=== PATIENT | female | born 1980 | race Caucasian/White ===

== ENCOUNTER 2017-10-23 12:45 | Emergency (ER) | payer MEDICAID ==
[~2017-10-23] VITALS: Ht 5367.7 cm; Wt 114.9 kg
[~2017-10-23 12:45] MED LIST: CARB100T7 PO; CYCL-1 PO; DIPH25CA83 PO; ESTR0.5T; GABA300C PO; HYDR-565 PO; LAMO100T2 PO; LORA1TAB PO; METO-292 PO; OMEP40CA37 PO; PENT100C8 PO; PROC5TAB56 PO; SUCR1TAB34 PO; SUMA25TA35 PO; TRAZ-91 PO; VITA1CAP62 PO
[2017-10-23 14:05] LABS: HEMATOCRIT 41.4 % (35.0-45.0); HEMOGLOBIN 14.6 g/dl (12.0-16.0); MEAN CORPUSCULAR HEMOGLOBIN 33.5 PG (27.0-31.0); MEAN CORPUSCULAR HGB CONC 35.2 % (33.0-36.5); PLATELET COUNT 253 X10'3 (140-440); RED BLOOD COUNT 4.36 X10'6 (4.20-5.60); RED CELL DISTRIBUTION WIDTH 12.5 % (11.5-14.5); WHITE BLOOD COUNT 10.7 X10'3 (4.5-11.0)
[2017-10-23 14:06] LABS: BASOPHILS % (AUTO) 0.4 % (0-1); EOSINOPHILS # (AUTO) 0.3 X10'3 (0-0.9); EOSINOPHILS % (AUTO) 2.7 % (0-6); LYMPHOCYTES # (AUTO) 2.7 X10'3 (1.1-4.8); LYMPHOCYTES % (AUTO) 24.7 % (21-51); MEAN PLATELET VOLUME 6.9 FL (7.4-10.4); MONOCYTES # (AUTO) 0.5 X10'3 (0-0.9); MONOCYTES % (AUTO) 4.9 % (2-12); NEUTROPHILS # (AUTO) 7.2 X10'3 (1.8-7.7); NEUTROPHILS % (AUTO) 67.3 % (42-75)
[2017-10-23 14:13] LABS: URINE HCG NEGATIVE (NEG)
[2017-10-23] MEDS ORDERED: CHOL100046 PO (14:20)
[2017-10-23] MEDS ORDERED: EST1T PO (14:20)
[2017-10-23] MEDS ORDERED: BREX1TAB PO (14:20)
[2017-10-23 14:21] LABS: ALANINE AMINOTRANSFERASE 21 U/L (12-78); ALBUMIN 2.9 G/DL (3.4-5.0); ALBUMIN/GLOBULIN RATIO 0.6 (1.1-1.5); ALKALINE PHOSPHATASE 128 IU/L (46-116); ANION GAP 10 (8-16); ASPARTATE AMINO TRANSFERASE 13 U/L (10-37); BILIRUBIN,TOTAL 0.2 MG/DL (0.1-1.0); BLOOD UREA NITROGEN 12 MG/DL (7-18); BUN/CREATININE RATIO 16.4 (6.6-38.0); CALCIUM 8.7 MG/DL (8.5-10.1); CHLORIDE 106 MMOL/L (99-107); CREATININE 0.73 MG/DL (0.40-0.90); ETHANOL < 0.010 GM/DL (0.0-0.010); GLUCOSE 98 MG/DL (70-104); POTASSIUM 4.1 MMOL/L (3.5-5.1); SODIUM 142 MMOL/L (135-145); TOTAL PROTEIN 7.4 G/DL (6.4-8.2); eGFR 90 ML/MIN
[2017-10-23 14:26] LABS: URINE AMPHETAMINE SCREEN NEGATIVE (Neg); URINE BARBITUATE SCREEN NEGATIVE (Neg); URINE BENZODIAZEPINES SCREEN NEGATIVE (Neg); URINE CANNABINOID SCREEN NEGATIVE (Neg); URINE COCAINE SCREEN NEGATIVE (Neg); URINE METHADONE SCREEN NEGATIVE (Neg); URINE OPIATE SCREEN POSITIVE (Neg); URINE PHENCYCLIDINE SCREEN NEGATIVE (Neg)
[2017-10-23] MEDS: HYDROcodone/acetaminophen 10/325mg tab PO SCH ×2 (14:48→21:11)
[2017-10-23] MEDS: LORazepam 1 MG tablet PO SCH ×2 (14:48→21:10)
[2017-10-23] MEDS ORDERED: metoclopramide 10mg tablet PO PRN (15:00)
[2017-10-23] MEDS ORDERED: LORazepam 1 MG tablet PO PRN (15:00)
[2017-10-23] MEDS ORDERED: cyclobenzaprine 10mg tablet PO PRN (15:00)
[2017-10-23] MEDS ORDERED: metoclopramide 10mg tablet PO ONE (16:00)
[2017-10-23] MEDS ORDERED: nicotine 14mg patch - 24hr TD ONE (16:20)
[2017-10-23] MEDS ORDERED: pentosan 100mg capsule PO SCH (21:00)
[2017-10-23] MEDS: carBAMazepine 100mg chewable tablet PO SCH (21:06)
[2017-10-23] MEDS: traZODone 50mg tablet PO SCH (21:09)
[2017-10-23] MEDS: lamoTRIgine 100mg tablet PO SCH (21:10)
[2017-10-24] MEDS ORDERED: estradiol 1mg tablet PO SCH (08:00)
[2017-10-24] MEDS: ELMIRON 100 MG PO SCH ×3 (08:00→20:56)
[2017-10-24] MEDS ORDERED: pantoprazole 40mg Tablet.DR PO SCH (08:00)
[2017-10-24] MEDS ORDERED: vitamin D (cholecalciferol) 1,000 unit tablet PO SCH (08:00)
[2017-10-24] MEDS ORDERED: nicotine 14mg patch - 24hr TD ONE (08:00)
[2017-10-24] MEDS ORDERED: nicotine 21mg patch - 24 hr TD ONE (08:00)
[2017-10-24] MEDS: HYDROcodone/acetaminophen 10/325mg tab PO SCH ×3 (08:20→20:52)
[2017-10-24] MEDS: LORazepam 1 MG tablet PO SCH ×3 (08:21→20:51)
[2017-10-24] MEDS: carBAMazepine 100mg chewable tablet PO SCH ×2 (08:34→20:51)
[2017-10-24 13:27] LABS: CLARITY,URINE Cloudy (Clear); COLOR,URINE Yellow (Yellow); GLUCOSE, URINE Negative (Neg); KETONES,URINE Negative (Neg); LEUKOCYTE ESTERASE ,URINE Negative (Neg); NITRITES, URINE Negative (Neg); OCCULT BLOOD,URINE Negative (Neg); PH,URINE 5.5 (4.8-8.0); PROTEIN,URINE Negative (Neg); UROBILINOGEN,URINE 0.2 E.U/dL (0.2-1.0)
[2017-10-24 13:28] LABS: UA COLLECTION TYPE CLN CATCH MIDSTREAM
[2017-10-24 13:34] LABS: BACTERIA,URINE 3+ /HPF (Neg); CAL OXALATE CRYSTALS 2+ /HPF (NEGATIVE); MUCUS STRANDS FEW /LPF (Neg); RBC,URINE NONE SEEN /HPF (0-2); SQUAMOUS EPITHELIAL CELL,UR MODERATE /LPF (FEW); WBC,URINE 0-4 /HPF (0-4)
[2017-10-24] MEDS: traZODone 50mg tablet PO SCH (20:52)
[2017-10-24] MEDS: lamoTRIgine 100mg tablet PO SCH (20:55)
[2017-10-24 21:36] VITALS: BP 145/97
== END 2017-10-24 21:39 ==
LOC: ER 12:46
DX: R45.851 Suicidal ideations (principal); K21.9 Gastro-esophageal reflux disease without esophagitis; G89.29 Other chronic pain; F41.9 Anxiety disorder, unspecified; F31.9 Bipolar disorder, unspecified; E78.00 Pure hypercholesterolemia, unspecified; Z90.49 Acquired absence of other specified parts of digestive tract; Z90.710 Acquired absence of both cervix and uterus; Z88.5 Allergy status to narcotic agent
CPT/HCPCS: 36415; 80053; 80305; 80320; 81001; 81025; 85025; 99285; J7030; J8597

== ENCOUNTER 2017-11-22 16:19 | Emergency (ER) | payer MEDICAID ==
[~2017-11-22] VITALS: Ht 162.6 cm; Wt 113.6 kg
[~2017-11-22 16:19] MED LIST changes: +BREX1TAB PO; +CHOL100046 PO; -DIPH25CA83 PO; +EST1T PO; -ESTR0.5T; -PROC5TAB56 PO; -SUCR1TAB34 PO; -SUMA25TA35 PO; -VITA1CAP62 PO
[2017-11-22] MEDS ORDERED: ipratropium/albuterol 3ml nebule NEB ONE (17:50)
[2017-11-22] MEDS ORDERED: dexamethasone 4mg tablet PO ONE (17:50)
[2017-11-22] MEDS ORDERED: DOXY100C43 PO (17:53)
[2017-11-22] MEDS ORDERED: ALBU8HFA PO (17:53)
[2017-11-22] MEDS ORDERED: PRED5TAB PO (17:53)
[2017-11-22 18:34] VITALS: BP 139/99
== END 2017-11-22 18:36 | disposition home or self-care (01) ==
LOC: ER 16:20
DX: K21.9 Gastro-esophageal reflux disease without esophagitis (principal); J20.9 Acute bronchitis, unspecified; J06.9 Acute upper respiratory infection, unspecified; F17.200 Nicotine dependence, unspecified, uncomplicated; G89.29 Other chronic pain; F41.9 Anxiety disorder, unspecified; F32.9 Major depressive disorder, single episode, unspecified; E78.00 Pure hypercholesterolemia, unspecified; Z87.442 Personal history of urinary calculi; Z90.710 Acquired absence of both cervix and uterus; Z90.49 Acquired absence of other specified parts of digestive tract; Z88.5 Allergy status to narcotic agent
CPT/HCPCS: 87070; 94640; 94760; 99284; J8540

== ENCOUNTER 2017-11-24 13:34 | Emergency (ER) | payer MEDICAID ==
[~2017-11-24] VITALS: Ht 162.6 cm; Wt 117.7 kg
[~2017-11-24 13:34] MED LIST changes: +ALBU8HFA PO; +DOXY100C43 PO; +PRED5TAB PO
[2017-11-24] MEDS ORDERED: AZIT250T PO (15:18)
[2017-11-24] MEDS ORDERED: BENZ-16 PO (15:18)
[2017-11-24 15:26] VITALS: BP 134/86
== END 2017-11-24 15:28 | disposition home or self-care (01) ==
LOC: ER 13:35
DX: J20.9 Acute bronchitis, unspecified (principal); G43.909 Migraine, unspecified, not intractable, without status migrainosus; E78.00 Pure hypercholesterolemia, unspecified; G89.29 Other chronic pain; K21.9 Gastro-esophageal reflux disease without esophagitis; F17.200 Nicotine dependence, unspecified, uncomplicated; Z87.442 Personal history of urinary calculi; Z90.49 Acquired absence of other specified parts of digestive tract; Z90.710 Acquired absence of both cervix and uterus; Z88.5 Allergy status to narcotic agent; Z88.8 Allergy status to other drugs, medicaments and biological substances; Z79.899 Other long term (current) drug therapy
CPT/HCPCS: 99283; J7030

== ENCOUNTER 2017-12-06 15:58 | Emergency (ER) | payer MEDICAID ==
[~2017-12-06] VITALS: Ht 162.6 cm; Wt 103.6 kg
[~2017-12-06 15:58] MED LIST changes: +AZIT250T PO; +BENZ-16 PO; -DOXY100C43 PO
[2017-12-06] MEDS ORDERED: ketorolac trometh inj. 60 MG/2 ML VIAL IM ONE (16:20)
[2017-12-06 16:38] LABS: CLARITY,URINE CLEAR (Clear); COLOR,URINE YELLOW (Yellow); GLUCOSE, URINE NEGATIVE (Neg); KETONES,URINE NEGATIVE (Neg); LEUKOCYTE ESTERASE ,URINE NEGATIVE (Neg); NITRITES, URINE NEGATIVE (Neg); OCCULT BLOOD,URINE NEGATIVE (Neg); PROTEIN,URINE NEGATIVE (Neg)
[2017-12-06 16:39] LABS: UA COLLECTION TYPE CLN CATCH MIDSTREAM
[2017-12-06] MEDS ORDERED: HYDROcodone/acetaminophen 10/325mg tab PO ONE (17:15)
[2017-12-06 17:41] LABS: BASOPHILS # (AUTO) 0.1 X10'3 (0-0.2); BASOPHILS % (AUTO) 0.5 % (0-1); EOSINOPHILS # (AUTO) 0.4 X10'3 (0-0.9); EOSINOPHILS % (AUTO) 2.7 % (0-6); HEMATOCRIT 40.7 % (35.0-45.0); HEMOGLOBIN 14.5 g/dl (12.0-16.0); LYMPHOCYTES % (AUTO) 21.5 % (21-51); MEAN CORPUSCULAR HEMOGLOBIN 33.3 PG (27.0-31.0); MEAN CORPUSCULAR HGB CONC 35.6 % (33.0-36.5); MEAN CORPUSCULAR VOLUME 93.7 FL (78-98); MEAN PLATELET VOLUME 6.8 FL (7.4-10.4); MONOCYTES # (AUTO) 0.5 X10'3 (0-0.9); MONOCYTES % (AUTO) 3.5 % (2-12); NEUTROPHILS # (AUTO) 10.1 X10'3 (1.8-7.7); NEUTROPHILS % (AUTO) 71.8 % (42-75); PLATELET COUNT 284 X10'3 (140-440); RED BLOOD COUNT 4.35 X10'6 (4.20-5.60); RED CELL DISTRIBUTION WIDTH 12.9 % (11.5-14.5); WHITE BLOOD COUNT 14.1 X10'3 (4.5-11.0)
[2017-12-06 17:57] LABS: ALANINE AMINOTRANSFERASE 24 U/L (12-78); ALBUMIN 3.1 G/DL (3.4-5.0); ALBUMIN/GLOBULIN RATIO 0.7 (1.1-1.5); ALKALINE PHOSPHATASE 103 IU/L (46-116); ANION GAP 9 (8-16); ASPARTATE AMINO TRANSFERASE 15 U/L (10-37); BILIRUBIN,TOTAL 0.3 MG/DL (0.1-1.0); BLOOD UREA NITROGEN 14 MG/DL (7-18); BUN/CREATININE RATIO 19.4 (6.6-38.0); CHLORIDE 107 MMOL/L (99-107); CREATININE 0.72 MG/DL (0.40-0.90); GLUCOSE 115 MG/DL (70-104); POTASSIUM 4.2 MMOL/L (3.5-5.1); SODIUM 142 MMOL/L (135-145); TOTAL CARBON DIOXIDE 26.4 MMOL/L (24-32); TOTAL PROTEIN 7.4 G/DL (6.4-8.2); eGFR > 90 ML/MIN
[2017-12-06 18:03] VITALS: BP 132/82
[2017-12-06] MEDS ORDERED: LIDOcaine 5% patch TP ONE (18:10)
== END 2017-12-06 18:26 | disposition home or self-care (01) ==
LOC: ER 15:58
DX: R10.31 Right lower quadrant pain (principal); R30.0 Dysuria; R11.0 Nausea; E78.00 Pure hypercholesterolemia, unspecified; K21.9 Gastro-esophageal reflux disease without esophagitis; G89.29 Other chronic pain; G43.909 Migraine, unspecified, not intractable, without status migrainosus; Z87.442 Personal history of urinary calculi; Z90.49 Acquired absence of other specified parts of digestive tract; Z90.710 Acquired absence of both cervix and uterus; Z98.890 Other specified postprocedural states; Z88.8 Allergy status to other drugs, medicaments and biological substances; Z79.899 Other long term (current) drug therapy
CPT/HCPCS: 36415; 80053; 81003; 85025; 96372; 99284; J1885

== ENCOUNTER 2018-02-14 16:05 | Emergency (ER) | payer MEDICAID ==
[~2018-02-14] VITALS: Ht 162.6 cm; Wt 123.0 kg
[~2018-02-14 16:05] MED LIST changes: -ALBU8HFA PO; +SUMA100T PO
[2018-02-14] MEDS ORDERED: aspirin 81mg tab.chew PO ONE (17:00)
[2018-02-14] MEDS ORDERED: acetaminophen 325mg tablet PO ONE (17:40)
[2018-02-14 18:03] VITALS: BP 138/89
== END 2018-02-14 18:06 | disposition home or self-care (01) ==
LOC: ER 16:06
DX: R07.89 Other chest pain (principal); M79.602 Pain in left arm; R00.2 Palpitations; G43.909 Migraine, unspecified, not intractable, without status migrainosus; E78.00 Pure hypercholesterolemia, unspecified; K59.00 Constipation, unspecified; K57.92 Diverticulitis of intestine, part unspecified, without perforation or abscess without bleeding; K21.9 Gastro-esophageal reflux disease without esophagitis; G89.29 Other chronic pain; Z87.442 Personal history of urinary calculi; Z90.49 Acquired absence of other specified parts of digestive tract; Z90.710 Acquired absence of both cervix and uterus; Z98.51 Tubal ligation status; Z98.890 Other specified postprocedural states; Z88.8 Allergy status to other drugs, medicaments and biological substances; Z79.2 Long term (current) use of antibiotics; Z79.899 Other long term (current) drug therapy
CPT/HCPCS: 36415; 84484; 93005; 99285

== ENCOUNTER 2018-04-25 18:02 | Emergency (ER) | payer MEDICAID ==
[~2018-04-25] VITALS: Ht 162.6 cm; Wt 129.6 kg
[~2018-04-25 18:02] MED LIST changes: -SUMA100T PO; +SUMA50TA PO
[2018-04-25] MEDS ORDERED: ketorolac trometh inj. 60 MG/2 ML VIAL IM ONE (18:25)
[2018-04-25] MEDS ORDERED: proCHLORperazine 10mg tablet PO ONE (18:25)
[2018-04-25] MEDS ORDERED: diphenhydrAMINE 25mg capsule PO ONE (18:25)
[2018-04-25 18:52] LABS: CLARITY,URINE SLIGHTLY CLOUDY (Clear); COLOR,URINE YELLOW (Yellow); GLUCOSE, URINE NEGATIVE (Neg); KETONES,URINE NEGATIVE (Neg); LEUKOCYTE ESTERASE ,URINE NEGATIVE (Neg); NITRITES, URINE NEGATIVE (Neg); OCCULT BLOOD,URINE TRACE-LYSED (Neg); PROTEIN,URINE NEGATIVE (Neg); UROBILINOGEN,URINE 0.2 E.U/dL (0.2-1.0)
[2018-04-25 18:54] LABS: UA COLLECTION TYPE CLN CATCH MIDSTREAM
[2018-04-25 18:57] LABS: BASOPHILS # (AUTO) 0.1 X10'3 (0-0.2); BASOPHILS % (AUTO) 0.5 % (0-1); EOSINOPHILS # (AUTO) 0.3 X10'3 (0-0.9); EOSINOPHILS % (AUTO) 2.2 % (0-6); HEMATOCRIT 39.6 % (35.0-45.0); HEMOGLOBIN 13.8 g/dl (12.0-16.0); LYMPHOCYTES # (AUTO) 3.6 X10'3 (1.1-4.8); LYMPHOCYTES % (AUTO) 27.3 % (21-51); MEAN CORPUSCULAR HEMOGLOBIN 31.3 PG (27.0-31.0); MEAN CORPUSCULAR HGB CONC 34.8 % (33.0-36.5); MEAN CORPUSCULAR VOLUME 90.1 FL (78-98); MEAN PLATELET VOLUME 6.9 FL (7.4-10.4); MONOCYTES # (AUTO) 0.5 X10'3 (0-0.9); MONOCYTES % (AUTO) 3.8 % (2-12); NEUTROPHILS # (AUTO) 8.7 X10'3 (1.8-7.7); NEUTROPHILS % (AUTO) 66.2 % (42-75); PLATELET COUNT 291 X10'3 (140-440); RED CELL DISTRIBUTION WIDTH 14.1 % (11.5-14.5); WHITE BLOOD COUNT 13.2 X10'3 (4.5-11.0)
[2018-04-25 19:01] LABS: BACTERIA,URINE 3+ /HPF (Neg); MUCUS STRANDS MODERATE /LPF (Neg); SQUAMOUS EPITHELIAL CELL,UR MANY /LPF (FEW); WBC,URINE 0-4 /HPF (0-4)
[2018-04-25 19:03] LABS: URINE AMPHETAMINE SCREEN NEGATIVE (Neg); URINE BARBITUATE SCREEN NEGATIVE (Neg); URINE BENZODIAZEPINES SCREEN NEGATIVE (Neg); URINE CANNABINOID SCREEN NEGATIVE (Neg); URINE COCAINE SCREEN NEGATIVE (Neg); URINE METHADONE SCREEN NEGATIVE (Neg); URINE OPIATE SCREEN POSITIVE (Neg); URINE PHENCYCLIDINE SCREEN NEGATIVE (Neg)
[2018-04-25 19:11] LABS: URINE HCG NEGATIVE (NEG)
[2018-04-25 19:12] LABS: ALANINE AMINOTRANSFERASE 22 U/L (12-78); ALBUMIN 3.1 G/DL (3.4-5.0); ALBUMIN/GLOBULIN RATIO 0.8 (1.1-1.5); ALKALINE PHOSPHATASE 106 IU/L (46-116); ANION GAP 10 (8-16); ASPARTATE AMINO TRANSFERASE 18 U/L (10-37); BILIRUBIN,TOTAL 0.2 MG/DL (0.1-1.0); BLOOD UREA NITROGEN 14 MG/DL (7-18); BUN/CREATININE RATIO 16.1 (6.6-38.0); CALCIUM 8.6 MG/DL (8.5-10.1); CHLORIDE 104 MMOL/L (99-107); CREATININE 0.87 MG/DL (0.40-0.90); GLUCOSE 131 MG/DL (70-104); POTASSIUM 3.8 MMOL/L (3.5-5.1); SODIUM 139 MMOL/L (135-145); TOTAL CARBON DIOXIDE 25.4 MMOL/L (24-32); TOTAL PROTEIN 7.1 G/DL (6.4-8.2); eGFR 73 ML/MIN
[2018-04-25 19:21] LABS: ETHANOL < 0.010 GM/DL (0.0-0.010)
[2018-04-25 19:24] LABS: ACETAMINOPHEN < 2.0 UG/ML (10-30)
[2018-04-25] MEDS ORDERED: LORA10TA61 PO (19:43)
[2018-04-25] MEDS ORDERED: OMEP40CA37 PO (19:43)
[2018-04-25] MEDS ORDERED: SUMA100T PO (19:43)
[2018-04-25] MEDS ORDERED: LAMO200T2 PO (19:43)
[2018-04-25] MEDS ORDERED: ASEN5TAB SL (19:43)
[2018-04-25] MEDS ORDERED: ASPI81TA46 PO (19:43)
[2018-04-25] MEDS ORDERED: ONDA8TAB9 PO (19:43)
[2018-04-25] MEDS ORDERED: CHOL5000 PO (19:43)
[2018-04-25] MEDS ORDERED: PENT100C9 PO (19:43)
[2018-04-25] MEDS ORDERED: CYCL-1 PO (19:43)
[2018-04-25] MEDS ORDERED: METO-292 PO (19:43)
[2018-04-25] MEDS ORDERED: CHOL200013 PO (20:15)
[2018-04-25] MEDS ORDERED: ondansetron/PF 4mg/2ml inj IM ONE (20:40)
[2018-04-25] MEDS ORDERED: SUMAtriptan 25 MG tablet PO PRN (21:35)
[2018-04-25] MEDS ORDERED: LORazepam 1 MG tablet PO PRN (21:35)
[2018-04-25] MEDS ORDERED: HYDROcodone/acetaminophen 10/325mg tab PO PRN (21:35)
[2018-04-25] MEDS ORDERED: cyclobenzaprine 10mg tablet PO PRN (21:35)
[2018-04-25] MEDS ORDERED: ondansetron 4mg rapidly disintigrating tab PO PRN (21:35)
[2018-04-25] MEDS ORDERED: nicotine prolacrilex 4mg gum BC PRN (21:40)
[2018-04-25] MEDS ORDERED: LORazepam 1 MG tablet PO ONE (23:25)
[2018-04-26] MEDS ORDERED: traZODone 50mg tablet PO ONE (00:20)
[2018-04-26] MEDS: metoclopramide 10mg tablet PO SCH ×2 (00:40→08:04)
[2018-04-26] MEDS ORDERED: ASENAPINE MALEATE 5 MG SL SCH (08:00)
[2018-04-26] MEDS ORDERED: gabapentin 300mg capsule PO SCH (08:00)
[2018-04-26] MEDS ORDERED: pentosan 100mg capsule PO SCH ×2 (08:00)
[2018-04-26] MEDS ORDERED: aspirin 81mg tablet.DR PO SCH (08:00)
[2018-04-26] MEDS ORDERED: pantoprazole 40mg Tablet.DR PO SCH (08:00)
[2018-04-26] MEDS ORDERED: loratadine 10mg tablet PO SCH (08:00)
[2018-04-26] MEDS ORDERED: estradiol 1mg tablet PO SCH (08:00)
[2018-04-26 09:18] VITALS: BP 141/90
[2018-04-26] MEDS ORDERED: traZODone 50mg tablet PO SCH ×4 (20:00→21:00)
[2018-04-26] MEDS ORDERED: lamoTRIgine 100mg tablet PO SCH (21:00)
== END 2018-04-26 09:10 ==
LOC: ER 18:02
DX: F31.9 Bipolar disorder, unspecified (principal); F41.9 Anxiety disorder, unspecified; R45.851 Suicidal ideations; G43.909 Migraine, unspecified, not intractable, without status migrainosus; E78.00 Pure hypercholesterolemia, unspecified; I10 Essential (primary) hypertension; K21.9 Gastro-esophageal reflux disease without esophagitis; G89.29 Other chronic pain; Z90.49 Acquired absence of other specified parts of digestive tract; Z90.710 Acquired absence of both cervix and uterus; Z98.890 Other specified postprocedural states; Z87.442 Personal history of urinary calculi; Z88.8 Allergy status to other drugs, medicaments and biological substances; Z88.5 Allergy status to narcotic agent; Z79.899 Other long term (current) drug therapy
CPT/HCPCS: 36415; 80053; 80305; 80320; 80329; 81001; 81025; 84443; 85025; 96372; 99285; J1885; J8597; Q0163; Q0164

== ENCOUNTER 2018-06-17 14:32 | Emergency (ER) | payer MEDICAID ==
[~2018-06-17] VITALS: Ht 162.6 cm; Wt 128.2 kg
[~2018-06-17 14:32] MED LIST changes: +ASEN5TAB SL; +ASPI81TA46 PO; -AZIT250T PO; -BENZ-16 PO; -BREX1TAB PO; -CARB100T7 PO; -CHOL100046 PO; +CHOL200013 PO; +HYDR-4353 PO; -HYDR-565 PO; -LAMO100T2 PO; +LAMO200T2 PO; +LORA10TA61 PO; +ONDA8TAB9 PO; -PRED5TAB PO; +SUMA100T PO; -SUMA50TA PO
[2018-06-17] MEDS ORDERED: diphenhydrAMINE 50 mg/ml inj IV ONE (16:00)
[2018-06-17] MEDS ORDERED: metoclopramide 5 mg/ml inj IV ONE (16:00)
[2018-06-17] MEDS ORDERED: normal saline 1000ML IV soln IVB ONE (16:00)
[2018-06-17] MEDS ORDERED: ketorolac trometh. 30mg/ml inj. IV ONE (16:00)
[2018-06-17] MEDS ORDERED: SUMAtriptan succ. 6 MG/0.5ml vial SQ ONE (17:50)
[2018-06-17 18:12] VITALS: BP 166/94
[2018-06-20] MEDS ORDERED: FLO0.4C PO (19:50)
== END 2018-06-17 18:13 | disposition home or self-care (01) ==
LOC: ER 14:32
DX: G43.909 Migraine, unspecified, not intractable, without status migrainosus (principal); E66.9 Obesity, unspecified; H53.149 Visual discomfort, unspecified; E78.00 Pure hypercholesterolemia, unspecified; I10 Essential (primary) hypertension; K21.9 Gastro-esophageal reflux disease without esophagitis; G89.29 Other chronic pain; Z90.49 Acquired absence of other specified parts of digestive tract; Z87.442 Personal history of urinary calculi; Z90.710 Acquired absence of both cervix and uterus; Z98.51 Tubal ligation status; Z88.5 Allergy status to narcotic agent; Z88.6 Allergy status to analgesic agent; Z88.8 Allergy status to other drugs, medicaments and biological substances; Z79.82 Long term (current) use of aspirin; Z79.899 Other long term (current) drug therapy
CPT/HCPCS: 96372; 96374; 96375; 99284; J1200; J1885; J2765; J3030

== ENCOUNTER 2018-07-28 20:01 | Emergency (ER) | payer OTHER, MEDICAID ==
[~2018-07-28] VITALS: Ht 162.6 cm; Wt 129.0 kg
[2018-07-28 20:12] VITALS: BP 146/99
[2018-07-28] MEDS ORDERED: METH500T PO ×2 (21:13→21:25)
[2018-07-28] MEDS ORDERED: ondansetron 4mg rapidly disintigrating tab PO ONE (21:25)
[2018-07-28] MEDS ORDERED: dexamethasone 4mg tablet PO ONE (21:25)
[2018-07-28] MEDS ORDERED: METH4TAB3 PO (21:25)
[2018-07-28] MEDS ORDERED: diazepam 5mg tablet PO ONE (21:25)
[2018-07-28] MEDS ORDERED: VAL5T PO (21:25)
[2018-07-28] MEDS ORDERED: HYDROcodone/acetaminophen 5mg/325mg tablet PO ONE (21:25)
== END 2018-07-28 22:02 | disposition home or self-care (01) ==
LOC: ER 20:02
DX: S16.1XXA Strain of muscle, fascia and tendon at neck level, initial encounter (principal); S39.012A Strain of muscle, fascia and tendon of lower back, initial encounter; S29.012A Strain of muscle and tendon of back wall of thorax, initial encounter; G89.29 Other chronic pain; G43.909 Migraine, unspecified, not intractable, without status migrainosus; E78.00 Pure hypercholesterolemia, unspecified; I10 Essential (primary) hypertension; K21.9 Gastro-esophageal reflux disease without esophagitis; Z90.49 Acquired absence of other specified parts of digestive tract; Z90.710 Acquired absence of both cervix and uterus; Z98.51 Tubal ligation status; Z98.890 Other specified postprocedural states; Z88.5 Allergy status to narcotic agent; Z88.1 Allergy status to other antibiotic agents; Z79.82 Long term (current) use of aspirin; Z79.899 Other long term (current) drug therapy; V49.88XA Car occupant (driver) (passenger) injured in other specified transport accidents, initial encounter; Y93.89 Activity, other specified; Y92.413 State road as the place of occurrence of the external cause; Y99.9 Unspecified external cause status
CPT/HCPCS: 99284; J8540

== ENCOUNTER → 2018-09-18 | Emergency (ER) | payer MEDICAID, OTHER ==
[~2018-09-18] VITALS: Ht 162.6 cm; Wt 118.0 kg
[~2018-09-18] MED LIST changes: +LIDOcaine 5% patch TP STA; +METH4TAB3 PO; +METH500T PO; +ketorolac tromethamine 15mg/ml inj. IM ONE
[2018-09-18 19:27] VITALS: BP 149/102
== END | disposition home or self-care (01) ==
LOC: ER 19:22
DX: R07.89 Other chest pain (principal); R05 Cough; G43.909 Migraine, unspecified, not intractable, without status migrainosus; E78.00 Pure hypercholesterolemia, unspecified; I10 Essential (primary) hypertension; K21.9 Gastro-esophageal reflux disease without esophagitis; G89.29 Other chronic pain; Z90.49 Acquired absence of other specified parts of digestive tract; Z90.710 Acquired absence of both cervix and uterus; Z98.51 Tubal ligation status; Z98.890 Other specified postprocedural states; Z88.8 Allergy status to other drugs, medicaments and biological substances; Z79.82 Long term (current) use of aspirin; Z79.899 Other long term (current) drug therapy
CPT/HCPCS: 96372; 99283; J1885

== ENCOUNTER 2018-09-24 21:20 | Emergency (ER) | payer MEDICAID ==
[~2018-09-24] VITALS: Ht 162.6 cm; Wt 128.0 kg
[~2018-09-24 21:20] MED LIST changes: -LIDOcaine 5% patch TP STA; -ketorolac tromethamine 15mg/ml inj. IM ONE
[2018-09-24] MEDS ORDERED: ondansetron 4mg rapidly disintigrating tab PO ONE (22:45)
[2018-09-24] MEDS ORDERED: LIDOcaine 5% patch TP ONE (22:45)
[2018-09-24] MEDS ORDERED: fentaNYL/PF 50MCG/1 ML 2ML syringe IM ONE (22:45)
[2018-09-24 22:51] VITALS: BP 156/105
== END 2018-09-24 23:34 | disposition home or self-care (01) ==
LOC: ER 21:21
DX: R07.81 Pleurodynia (principal); I10 Essential (primary) hypertension; G43.909 Migraine, unspecified, not intractable, without status migrainosus; E78.00 Pure hypercholesterolemia, unspecified; K21.9 Gastro-esophageal reflux disease without esophagitis; G89.29 Other chronic pain; M54.9 Dorsalgia, unspecified; Z90.49 Acquired absence of other specified parts of digestive tract; Z90.710 Acquired absence of both cervix and uterus; Z98.51 Tubal ligation status; Z88.6 Allergy status to analgesic agent; Z88.8 Allergy status to other drugs, medicaments and biological substances; Z91.048 Other nonmedicinal substance allergy status; Z79.82 Long term (current) use of aspirin
CPT/HCPCS: 71046; 96372; 99283; J3010

== ENCOUNTER 2018-11-09 21:57 | Emergency (ER) | payer MEDICAID ==
[~2018-11-09] VITALS: Ht 162.6 cm; Wt 125.0 kg
[~2018-11-09 21:57] MED LIST changes: +CIPR-230 PO; +HYDR-3965 PO
--- NOTE | 2018-11-09 22:00 | NUR ---
PT BEING ADMITTED AT WINDOW AND DROPPED HER PEN. SHE BENT OVER TO PICK IT UP WNL.
[2018-11-09 22:10] VITALS: BP 153/118
[2018-11-09] MEDS ORDERED: orphenadrine citrate 60mg/2ml inj. IM ONE (23:40)
[2018-11-09] MEDS ORDERED: ketorolac tromethamine 15mg/ml inj. IM ONE (23:40)
== END 2018-11-09 23:55 | disposition home or self-care (01) ==
LOC: ER 21:57
DX: S39.012A Strain of muscle, fascia and tendon of lower back, initial encounter (principal); M54.31 Sciatica, right side; M54.32 Sciatica, left side; R20.2 Paresthesia of skin; G43.909 Migraine, unspecified, not intractable, without status migrainosus; E78.00 Pure hypercholesterolemia, unspecified; I10 Essential (primary) hypertension; K21.9 Gastro-esophageal reflux disease without esophagitis; G89.29 Other chronic pain; Z88.6 Allergy status to analgesic agent; Z88.8 Allergy status to other drugs, medicaments and biological substances; Z79.899 Other long term (current) drug therapy; Z79.82 Long term (current) use of aspirin; Z87.442 Personal history of urinary calculi; Z90.49 Acquired absence of other specified parts of digestive tract; Z90.710 Acquired absence of both cervix and uterus; Z98.51 Tubal ligation status; Z98.890 Other specified postprocedural states; X58.XXXA Exposure to other specified factors, initial encounter; Y93.89 Activity, other specified; Y92.89 Other specified places as the place of occurrence of the external cause; Y99.8 Other external cause status
CPT/HCPCS: 96372; 99283; J1885; J2360

== ENCOUNTER 2018-11-15 20:34 | Emergency (ER) | payer MEDICAID ==
[~2018-11-15] VITALS: Ht 162.6 cm; Wt 126.2 kg
[2018-11-15] MEDS ORDERED: ibuprofen tablet 400 MG TABLET PO ONE (21:20)
[2018-11-15 21:58] LABS: BASOPHILS # (AUTO) 0.1 X10'3 (0-0.2); BASOPHILS % (AUTO) 0.6 % (0-1); EOSINOPHILS # (AUTO) 0.2 X10'3 (0-0.9); EOSINOPHILS % (AUTO) 1.8 % (0-6); HEMATOCRIT 42.4 % (35.0-45.0); HEMOGLOBIN 14.7 g/dl (12.0-16.0); LYMPHOCYTES % (AUTO) 25.6 % (21-51); MEAN CORPUSCULAR HGB CONC 34.8 g/dL (33.0-36.5); MEAN CORPUSCULAR VOLUME 94.8 FL (78-98); MEAN PLATELET VOLUME 7.2 FL (7.4-10.4); MONOCYTES # (AUTO) 0.6 X10'3 (0-0.9); NEUTROPHILS # (AUTO) 7.9 X10'3 (1.8-7.7); PLATELET COUNT 295 X10'3 (140-440); RED BLOOD COUNT 4.47 X10'6 (4.20-5.60); RED CELL DISTRIBUTION WIDTH 13.3 % (11.5-14.5); WHITE BLOOD COUNT 11.8 X10'3 (4.5-11.0)
[2018-11-15 22:08] LABS: ALANINE AMINOTRANSFERASE 31 U/L (12-78); ALBUMIN 3.3 G/DL (3.4-5.0); ALBUMIN/GLOBULIN RATIO 0.8 (1.1-1.5); ALKALINE PHOSPHATASE 145 IU/L (46-116); ANION GAP 14 (8-16); ASPARTATE AMINO TRANSFERASE 27 U/L (10-37); BILIRUBIN,TOTAL 0.2 MG/DL (0.1-1.0); BLOOD UREA NITROGEN 11 MG/DL (7-18); BUN/CREATININE RATIO 12.1 (6.6-38.0); CALCIUM 8.9 MG/DL (8.5-10.1); CHLORIDE 106 MMOL/L (99-107); CREATININE 0.91 MG/DL (0.40-0.90); GLUCOSE 119 MG/DL (70-104); POTASSIUM 3.7 MMOL/L (3.5-5.1); SODIUM 141 MMOL/L (135-145); TOTAL CARBON DIOXIDE 21.4 MMOL/L (24-32); TOTAL PROTEIN 7.6 G/DL (6.4-8.2); eGFR 69 ML/MIN
[2018-11-15 22:09] LABS: ETHANOL < 0.010 GM/DL (0.0-0.010)
[2018-11-15 22:11] LABS: URINE HCG NEGATIVE (NEG)
[2018-11-15 22:24] LABS: URINE AMPHETAMINE SCREEN NEGATIVE (Neg); URINE BARBITUATE SCREEN NEGATIVE (Neg); URINE BENZODIAZEPINES SCREEN NEGATIVE (Neg); URINE CANNABINOID SCREEN NEGATIVE (Neg); URINE COCAINE SCREEN NEGATIVE (Neg); URINE METHADONE SCREEN NEGATIVE (Neg); URINE OPIATE SCREEN POSITIVE (Neg); URINE PHENCYCLIDINE SCREEN NEGATIVE (Neg)
--- NOTE | 2018-11-15 22:26 | NUR ---
TELEPSYCH CONSULT INTIATED.
[2018-11-15] MEDS ORDERED: LORazepam 1 MG tablet PO ONE (22:40)
[2018-11-15] MEDS ORDERED: HYDROcodone/acetaminophen 10/325mg tab PO ONE (23:05)
[2018-11-15] MEDS ORDERED: VITA-268 PO (23:08)
[2018-11-15] MEDS ORDERED: CETI-102 PO (23:08)
[2018-11-15] MEDS ORDERED: TOP100T PO (23:08)
[2018-11-15] MEDS ORDERED: CARB200T PO ×2 (23:08)
[2018-11-15] MEDS ORDERED: nicotine 14mg patch - 24hr TD ONE (23:25)
--- NOTE | 2018-11-15 23:36 | NUR ---
Sarahi redd in [facility] - 11/16/18 at 0121 by MARION Pt engaged in SOC psychosocial assessment.
[2018-11-16] MEDS: traZODone 50mg tablet PO SCH ×2 (02:34→20:42)
[2018-11-16] MEDS: lamoTRIgine 100mg tablet PO SCH ×2 (02:34→20:42)
[2018-11-16] MEDS: carBAMazepine 100mg chewable tablet PO SCH ×3 (02:48→20:58)
--- NOTE | 2018-11-16 02:51 | NUR ---
Home meds continued per telepsych recommendation. Patient updated that her saphis is not available and she states she can get someone to bring it in tomorrow at some time. Patient is complaining the gurney is uncomfortable and that her back hurts, but she is not due for her norco yet. Patient requests her flexeril. If available it will be provided.
[2018-11-16] MEDS: cyclobenzaprine 10mg tablet PO PRN ×2 (02:54→20:59)
--- NOTE | 2018-11-16 04:10 | NUR ---
Patient up to restroom and back to bed.
--- NOTE | 2018-11-16 04:56 | NUR ---
Patient sleeping comfortably in bed.
--- NOTE | 2018-11-16 05:34 | NUR ---
Patient awake and up to restroom.
[2018-11-16] MEDS ORDERED: non-formulary drug (Vitamin B Complex (B Complex) 1 EACH) PO SCH (08:00)
[2018-11-16] MEDS: topiramate 100mg tablet PO SCH (08:52)
[2018-11-16] MEDS: LORazepam 1 MG tablet PO PRN ×2 (08:53→16:54)
[2018-11-16] MEDS: cetirizine 10mg tablet PO SCH (08:53)
[2018-11-16] MEDS: HYDROcodone/acetaminophen 10/325mg tab PO PRN ×2 (08:53→16:56)
[2018-11-16] MEDS: pentosan 100mg capsule PO SCH ×3 (08:54→20:59)
[2018-11-16] MEDS: aspirin 81mg tablet.DR PO SCH (08:55)
[2018-11-16] MEDS: estradiol 1mg tablet PO SCH (08:55)
--- NOTE | 2018-11-16 13:35 | NUR ---
RECEIVED REPORT FROM ARABELLA MCDERMOTT, PT WALKED OVER TO RM 26 BY DONTE WHATLEY.
--- NOTE | 2018-11-16 15:15 | NUR ---
YOLANDE FROM [facility] IN ROOM TO EVAL FOR 5150.
--- NOTE | 2018-11-16 18:17 | NUR ---
DINNER SAFTEY TRAYS SERVED.
--- NOTE | 2018-11-16 22:09 | NUR ---
ramona from [facility] in [place] called and report given on pt.
--- NOTE | 2018-11-16 23:05 | NUR ---
PT MOM BROUGHT IN SAPHRIS BC 5MG TABS, 2TABS. MED TAKEN TO PHARMACY AND SCHEDULED FOR [facility] AM AND PM. DOCTORS ORDER WRITTEN YESTERDAY.
[2018-11-17] MEDS: LORazepam 1 MG tablet PO PRN ×3 (00:20→20:43)
[2018-11-17] MEDS: HYDROcodone/acetaminophen 10/325mg tab PO PRN ×4 (00:21→20:45)
--- NOTE | 2018-11-17 00:25 | NUR ---
PT C/O LOW BACK PAIN. NORCO GIVEN
[2018-11-17] MEDS ORDERED: nicotine 14mg patch - 24hr TD ONE (00:45)
--- NOTE | 2018-11-17 00:52 | NUR ---
REQUESTING A NICOTINE PATCH. INFORMED WILLIAMS FARAH. PLEASE SEE NEW ORDERS.
[2018-11-17] MEDS: carBAMazepine 100mg chewable tablet PO SCH ×2 (09:14→20:44)
[2018-11-17] MEDS: pentosan 100mg capsule PO SCH ×3 (09:14→20:43)
[2018-11-17] MEDS: estradiol 1mg tablet PO SCH (09:14)
[2018-11-17] MEDS: cetirizine 10mg tablet PO SCH (09:14)
[2018-11-17] MEDS: aspirin 81mg tablet.DR PO SCH (09:14)
[2018-11-17] MEDS: topiramate 100mg tablet PO SCH (09:15)
--- NOTE | 2018-11-17 12:27 | NUR ---
PT RESTING EYES CLOSED RR EQUAL AND UNLABORRED
[2018-11-17 17:44] VITALS: BP 143/87
--- NOTE | 2018-11-17 18:05 | NUR ---
PT WITH MOTHER AND STEP FATHER VISITING AT BEDSIDE.
--- NOTE | 2018-11-17 19:00 | NUR ---
PATIENT SITTING IN BED LIGHTS ON RR EVEN UN LABORED NO OBSERVABLE S/S OF ACUTE STRESS AT THIS TIME
--- NOTE | 2018-11-17 19:30 | NUR ---
[facility] STATED [facility] HAS ACCEPTED PATIENT AND MATERIALS DEVELOPMENT ENGINEER WILL BE HERE TO PICK PATIENT UP AT 2100 HRS
[2018-11-17] MEDS: traZODone 50mg tablet PO SCH (20:42)
[2018-11-17] MEDS: lamoTRIgine 100mg tablet PO SCH (20:44)
--- NOTE | 2018-11-17 21:48 | NUR ---
CALLED [facility] AND [facility] [place] TO SEE THE DRIVERS ETA, GRINDER SET UP OPERATOR CENTERLESS CALLED BACK STATED THAT IT WOULD BE >15 MIN
--- NOTE | 2018-11-17 22:36 | NUR ---
CALLED [facility] DUE TO THE FACT TRANSPORTATION WAS SUPPOSE TO ARRIVE FOR PATIENT AT 2100 HRS, TRANSPORT [facility] VERBALIZED PATIENT IS STILL BEING TRANSFERRED TONIGHT
== END 2018-11-17 22:54 ==
LOC: ER 20:34
DX: R45.851 Suicidal ideations (principal); F41.9 Anxiety disorder, unspecified; G43.909 Migraine, unspecified, not intractable, without status migrainosus; E78.00 Pure hypercholesterolemia, unspecified; I10 Essential (primary) hypertension; K21.9 Gastro-esophageal reflux disease without esophagitis; G89.29 Other chronic pain; F31.9 Bipolar disorder, unspecified; Z90.49 Acquired absence of other specified parts of digestive tract; Z98.890 Other specified postprocedural states; Z90.710 Acquired absence of both cervix and uterus; Z98.51 Tubal ligation status; Z88.5 Allergy status to narcotic agent; Z88.1 Allergy status to other antibiotic agents; Z79.899 Other long term (current) drug therapy; Z79.82 Long term (current) use of aspirin
CPT/HCPCS: 36415; 80053; 80305; 80320; 81025; 85025; 99285

== ENCOUNTER 2018-12-08 13:31 | Emergency (ER) | payer MEDICAID ==
[~2018-12-08] VITALS: Ht 160 cm; Wt 127.3 kg
[~2018-12-08 13:31] MED LIST changes: +CARB200T PO; +CETI-102 PO; -CIPR-230 PO; -GABA300C PO; -HYDR-3965 PO; -LORA10TA61 PO; -METH4TAB3 PO; -METH500T PO; -METO-292 PO; -OMEP40CA37 PO; -ONDA8TAB9 PO; -SUMA100T PO; +TOP100T PO; +VITA-268 PO
[2018-12-08 14:32] LABS: BASOPHILS # (AUTO) 0.1 X10'3 (0-0.2); BASOPHILS % (AUTO) 0.8 % (0-1); EOSINOPHILS # (AUTO) 0.2 X10'3 (0-0.9); EOSINOPHILS % (AUTO) 2.6 % (0-6); HEMATOCRIT 42.1 % (35.0-45.0); HEMOGLOBIN 14.2 g/dl (12.0-16.0); LYMPHOCYTES # (AUTO) 3.1 X10'3 (1.1-4.8); LYMPHOCYTES % (AUTO) 32.7 % (21-51); MEAN CORPUSCULAR HEMOGLOBIN 32.7 PG (27.0-31.0); MEAN CORPUSCULAR HGB CONC 33.8 g/dL (33.0-36.5); MEAN CORPUSCULAR VOLUME 96.7 FL (78-98); MEAN PLATELET VOLUME 7.1 FL (7.4-10.4); MONOCYTES # (AUTO) 0.4 X10'3 (0-0.9); MONOCYTES % (AUTO) 4.3 % (2-12); NEUTROPHILS # (AUTO) 5.7 X10'3 (1.8-7.7); NEUTROPHILS % (AUTO) 59.6 % (42-75); PLATELET COUNT 275 X10'3 (140-440); RED BLOOD COUNT 4.35 X10'6 (4.20-5.60); RED CELL DISTRIBUTION WIDTH 13.5 % (11.5-14.5); WHITE BLOOD COUNT 9.6 X10'3 (4.5-11.0)
[2018-12-08 14:41] LABS: INR 0.9 INR; PARTIAL THROMBOPLASTIN TIME 25 SECONDS (22-32); PROTHROMBIN TIME 9.5 SECONDS (9.0-12.0)
[2018-12-08 14:45] LABS: ALANINE AMINOTRANSFERASE 24 U/L (12-78); ALBUMIN/GLOBULIN RATIO 0.7 (1.1-1.5); ALKALINE PHOSPHATASE 131 IU/L (46-116); ANION GAP 8 (8-16); ASPARTATE AMINO TRANSFERASE 17 U/L (10-37); BILIRUBIN,TOTAL 0.1 MG/DL (0.1-1.0); BLOOD UREA NITROGEN 11 MG/DL (7-18); BUN/CREATININE RATIO 13.9 (6.6-38.0); CALCIUM 8.7 MG/DL (8.5-10.1); CHLORIDE 108 MMOL/L (99-107); CREATININE 0.79 MG/DL (0.40-0.90); GLUCOSE 110 MG/DL (70-104); POTASSIUM 3.9 MMOL/L (3.5-5.1); SODIUM 141 MMOL/L (135-145); TOTAL CARBON DIOXIDE 25.1 MMOL/L (24-32); TOTAL PROTEIN 7.1 G/DL (6.4-8.2); eGFR 81 ML/MIN
[2018-12-08] MEDS ORDERED: LIDOcaine Viscous 15ml cup PO ONE (16:25)
[2018-12-08] MEDS ORDERED: ketorolac trometh inj. 60 MG/2 ML VIAL IM ONE (16:25)
[2018-12-08] MEDS ORDERED: mag hydrox/Alum hydrox/simeth 30ml oral suspension PO ONE (16:25)
[2018-12-08 17:04] LABS: D-DIMER 0.69 MG/L FEU (0-0.50)
[2018-12-08 17:49] VITALS: BP 151/95
== END 2018-12-08 17:56 | disposition home or self-care (01) ==
LOC: ER 13:31
DX: R07.9 Chest pain, unspecified (principal); R11.0 Nausea; R10.84 Generalized abdominal pain; G43.909 Migraine, unspecified, not intractable, without status migrainosus; E78.00 Pure hypercholesterolemia, unspecified; I10 Essential (primary) hypertension; K21.9 Gastro-esophageal reflux disease without esophagitis; G89.29 Other chronic pain; F17.210 Nicotine dependence, cigarettes, uncomplicated; Z87.442 Personal history of urinary calculi; Z90.49 Acquired absence of other specified parts of digestive tract; Z90.710 Acquired absence of both cervix and uterus; Z98.890 Other specified postprocedural states; Z98.51 Tubal ligation status; Z88.5 Allergy status to narcotic agent; Z88.8 Allergy status to other drugs, medicaments and biological substances; Z79.82 Long term (current) use of aspirin; Z79.899 Other long term (current) drug therapy
CPT/HCPCS: 36415; 71045; 80053; 83880; 84484; 85025; 85379; 85610; 85730; 93005; 96372; 99284; J1885

== ENCOUNTER 2019-01-27 20:43 | Emergency (ER) | payer MEDICAID ==
[~2019-01-27] VITALS: Ht 160 cm; Wt 125.0 kg
[~2019-01-27 20:43] MED LIST changes: +ALBU18HF2 INH; +ASPI81TA44 PO; -ASPI81TA46 PO; +PRED20TA PO
[2019-01-27] MEDS ORDERED: dexamethasone sod phosphate 10mg/ml inj IV STA (23:06)
[2019-01-27] MEDS ORDERED: LORazepam 2 mg/ml vial IV ONE (23:10)
[2019-01-27] MEDS ORDERED: ketorolac trometh. 30mg/ml inj. IV ONE (23:10)
[2019-01-27] MEDS ORDERED: metoclopramide 5 mg/ml inj IV ONE (23:10)
[2019-01-27] MEDS ORDERED: normal saline 1000ML IV soln IVB ONE (23:10)
[2019-01-28] MEDS ORDERED: diphenhydrAMINE 50 mg/ml inj IV ONE (00:25)
[2019-01-28 01:20] VITALS: BP 162/118
== END 2019-01-28 01:15 | disposition home or self-care (01) ==
LOC: ER 20:44
DX: G43.909 Migraine, unspecified, not intractable, without status migrainosus (principal); E78.00 Pure hypercholesterolemia, unspecified; I10 Essential (primary) hypertension; K21.9 Gastro-esophageal reflux disease without esophagitis; G89.29 Other chronic pain; Z87.442 Personal history of urinary calculi; Z90.49 Acquired absence of other specified parts of digestive tract; Z90.710 Acquired absence of both cervix and uterus; Z98.890 Other specified postprocedural states; Z88.8 Allergy status to other drugs, medicaments and biological substances; Z79.82 Long term (current) use of aspirin; Z79.899 Other long term (current) drug therapy
CPT/HCPCS: 96361; 96374; 96375; 99283; J1100; J1200; J1885; J2060; J2765; J7030

== ENCOUNTER 2019-02-01 19:17 | Emergency (ER) | payer MEDICAID ==
[~2019-02-01] VITALS: Ht 161.3 cm; Wt 125.0 kg
[2019-02-01 19:55] LABS: BASOPHILS # (AUTO) 0.1 X10'3 (0-0.2); BASOPHILS % (AUTO) 1.1 % (0-1); EOSINOPHILS # (AUTO) 0.2 X10'3 (0-0.9); EOSINOPHILS % (AUTO) 1.6 % (0-6); HEMATOCRIT 41.3 % (35.0-45.0); HEMOGLOBIN 14.6 g/dl (12.0-16.0); LYMPHOCYTES # (AUTO) 3.5 X10'3 (1.1-4.8); LYMPHOCYTES % (AUTO) 25.7 % (21-51); MEAN CORPUSCULAR HEMOGLOBIN 33.6 PG (27.0-31.0); MEAN CORPUSCULAR HGB CONC 35.4 g/dL (33.0-36.5); MEAN PLATELET VOLUME 7.4 FL (7.4-10.4); MONOCYTES # (AUTO) 0.6 X10'3 (0-0.9); MONOCYTES % (AUTO) 4.7 % (2-12); NEUTROPHILS % (AUTO) 66.9 % (42-75); PLATELET COUNT 307 X10'3 (140-440); RED BLOOD COUNT 4.35 X10'6 (4.20-5.60); RED CELL DISTRIBUTION WIDTH 13.2 % (11.5-14.5); WHITE BLOOD COUNT 13.5 X10'3 (4.5-11.0)
[2019-02-01 20:12] LABS: ALANINE AMINOTRANSFERASE 23 U/L (12-78); ALBUMIN 3.1 G/DL (3.4-5.0); ALBUMIN/GLOBULIN RATIO 0.7 (1.1-1.5); ALKALINE PHOSPHATASE 135 IU/L (46-116); ANION GAP 10 (8-16); ASPARTATE AMINO TRANSFERASE 15 U/L (10-37); BILIRUBIN,TOTAL 0.2 MG/DL (0.1-1.0); BLOOD UREA NITROGEN 12 MG/DL (7-18); BUN/CREATININE RATIO 15.4 (6.6-38.0); CALCIUM 8.7 MG/DL (8.5-10.1); CHLORIDE 106 MMOL/L (99-107); CREATININE 0.78 MG/DL (0.40-0.90); GLUCOSE 103 MG/DL (70-104); POTASSIUM 3.8 MMOL/L (3.5-5.1); SODIUM 140 MMOL/L (135-145); TOTAL CARBON DIOXIDE 24.1 MMOL/L (24-32); TOTAL PROTEIN 7.4 G/DL (6.4-8.2); eGFR 83 ML/MIN
[2019-02-01 20:14] LABS: PARTIAL THROMBOPLASTIN TIME 26 SECONDS (22-32)
[2019-02-01] MEDS ORDERED: ketorolac trometh inj. 60 MG/2 ML VIAL IM ONE (21:55)
[2019-02-01 22:41] LABS: D-DIMER 0.39 MG/L FEU (0-0.50)
[2019-02-01 23:53] VITALS: BP 131/87
== END 2019-02-02 00:35 | disposition home or self-care (01) ==
LOC: ER 19:18
DX: R07.9 Chest pain, unspecified (principal); R06.02 Shortness of breath; R11.0 Nausea; R20.0 Anesthesia of skin; G43.909 Migraine, unspecified, not intractable, without status migrainosus; E78.00 Pure hypercholesterolemia, unspecified; I10 Essential (primary) hypertension; K21.9 Gastro-esophageal reflux disease without esophagitis; Z87.442 Personal history of urinary calculi; G89.29 Other chronic pain; F17.210 Nicotine dependence, cigarettes, uncomplicated; Z87.19 Personal history of other diseases of the digestive system; Z90.49 Acquired absence of other specified parts of digestive tract; Z90.710 Acquired absence of both cervix and uterus; Z98.890 Other specified postprocedural states; Z98.51 Tubal ligation status; Z87.2 Personal history of diseases of the skin and subcutaneous tissue; Z88.6 Allergy status to analgesic agent; Z88.8 Allergy status to other drugs, medicaments and biological substances; Z79.899 Other long term (current) drug therapy; Z79.82 Long term (current) use of aspirin
CPT/HCPCS: 36415; 71045; 80053; 83880; 84484; 85025; 85379; 85610; 85730; 93005; 96372; 99284; J1885

== ENCOUNTER 2019-02-16 13:54 | Emergency (ER) | payer MEDICAID ==
[~2019-02-16] VITALS: Ht 160 cm; Wt 125.9 kg
[~2019-02-16 13:54] MED LIST changes: -PRED20TA PO
[2019-02-16] MEDS ORDERED: normal saline 1000ML IV soln IVB ONE (15:00)
[2019-02-16] MEDS ORDERED: magnesium 2GM in 50ml NS 50 ML IV ONE (15:00)
[2019-02-16] MEDS ORDERED: acetaminophen 325mg tablet PO ONE ×2 (15:00)
[2019-02-16] MEDS ORDERED: dexamethasone 4mg/ml inj IV ONE (15:00)
[2019-02-16] MEDS ORDERED: proCHLORperazine 10 MG/2 ml inj IV ONE (15:00)
[2019-02-16] MEDS ORDERED: LORazepam 2 mg/ml vial IV ONE (15:15)
[2019-02-16] MEDS ORDERED: diphenhydrAMINE 50 mg/ml inj IV ONE (15:45)
[2019-02-16 18:26] VITALS: BP 136/94
== END 2019-02-16 18:27 | disposition home or self-care (01) ==
LOC: ER 13:55
DX: G43.909 Migraine, unspecified, not intractable, without status migrainosus (principal); E78.00 Pure hypercholesterolemia, unspecified; I10 Essential (primary) hypertension; K21.9 Gastro-esophageal reflux disease without esophagitis; G89.29 Other chronic pain; Z90.49 Acquired absence of other specified parts of digestive tract; Z90.710 Acquired absence of both cervix and uterus; Z98.51 Tubal ligation status; Z98.890 Other specified postprocedural states; Z88.5 Allergy status to narcotic agent; Z88.8 Allergy status to other drugs, medicaments and biological substances; Z79.82 Long term (current) use of aspirin; Z79.899 Other long term (current) drug therapy
CPT/HCPCS: 96365; 96375; 99283; J0780; J1100; J1200; J2060; J3475; J7030

== ENCOUNTER 2019-03-08 18:57 | Emergency (ER) | payer MEDICAID ==
[~2019-03-08] VITALS: Ht 160 cm; Wt 126.4 kg
[2019-03-08] MEDS ORDERED: morphine 4 MG/ML inj SYRINge IV PRN (19:35)
[2019-03-08] MEDS ORDERED: normal saline 1000ML IV soln IVB ONE (19:35)
[2019-03-08] MEDS ORDERED: ondansetron/PF 4mg/2ml inj IV ONE (19:35)
[2019-03-08 19:37] LABS: BASOPHILS # (AUTO) 0.1 X10'3 (0-0.2); BASOPHILS % (AUTO) 1.2 % (0-1); EOSINOPHILS # (AUTO) 0.2 X10'3 (0-0.9); EOSINOPHILS % (AUTO) 1.4 % (0-6); HEMATOCRIT 41.1 % (35.0-45.0); LYMPHOCYTES # (AUTO) 3.2 X10'3 (1.1-4.8); LYMPHOCYTES % (AUTO) 25.6 % (21-51); MEAN CORPUSCULAR HEMOGLOBIN 32.9 PG (27.0-31.0); MEAN CORPUSCULAR HGB CONC 34.1 g/dL (33.0-36.5); MEAN CORPUSCULAR VOLUME 96.5 FL (78-98); MEAN PLATELET VOLUME 7.4 FL (7.4-10.4); MONOCYTES # (AUTO) 0.5 X10'3 (0-0.9); MONOCYTES % (AUTO) 4.1 % (2-12); NEUTROPHILS # (AUTO) 8.3 X10'3 (1.8-7.7); NEUTROPHILS % (AUTO) 67.7 % (42-75); PLATELET COUNT 261 X10'3 (140-440); RED BLOOD COUNT 4.26 X10'6 (4.20-5.60); RED CELL DISTRIBUTION WIDTH 13.5 % (11.5-14.5); WHITE BLOOD COUNT 12.3 X10'3 (4.5-11.0)
[2019-03-08 19:51] LABS: ALANINE AMINOTRANSFERASE 24 U/L (12-78); ALBUMIN 3.2 G/DL (3.4-5.0); ALBUMIN/GLOBULIN RATIO 0.7 (1.1-1.5); ALKALINE PHOSPHATASE 139 IU/L (46-116); ANION GAP 8 (8-16); ASPARTATE AMINO TRANSFERASE 13 U/L (10-37); BILIRUBIN,TOTAL 0.2 MG/DL (0.1-1.0); BLOOD UREA NITROGEN 11 MG/DL (7-18); BUN/CREATININE RATIO 13.3 (6.6-38.0); CALCIUM 9.2 MG/DL (8.5-10.1); CHLORIDE 105 MMOL/L (99-107); CREATININE 0.83 MG/DL (0.40-0.90); GLUCOSE 117 MG/DL (70-104); LIPASE 95 U/L (73-393); POTASSIUM 3.7 MMOL/L (3.5-5.1); SODIUM 138 MMOL/L (135-145); TOTAL CARBON DIOXIDE 24.9 MMOL/L (24-32); TOTAL PROTEIN 7.6 G/DL (6.4-8.2); eGFR 77 ML/MIN
[2019-03-08 20:07] LABS: CLARITY,URINE SLIGHTLY CLOUDY (Clear); COLOR,URINE YELLOW (Yellow); GLUCOSE, URINE NEGATIVE (Neg); KETONES,URINE NEGATIVE (Neg); LEUKOCYTE ESTERASE ,URINE NEGATIVE (Neg); NITRITES, URINE NEGATIVE (Neg); OCCULT BLOOD,URINE NEGATIVE (Neg); PROTEIN,URINE NEGATIVE (Neg); UROBILINOGEN,URINE 0.2 E.U/dL (0.2-1.0)
[2019-03-08 20:09] LABS: UA COLLECTION TYPE CLN CATCH MIDSTREAM
[2019-03-08 20:15] LABS: BACTERIA,URINE FEW /HPF (Neg); MUCUS STRANDS MODERATE /LPF (Neg); RBC,URINE 0-2 /HPF (0-2); SQUAMOUS EPITHELIAL CELL,UR MODERATE /LPF (FEW); WBC,URINE 0-4 /HPF (0-4)
[2019-03-08 20:19] LABS: URINE HCG NEGATIVE (NEG)
[2019-03-08] MEDS ORDERED: ketorolac trometh. 30mg/ml inj. IV ONE (20:25)
[2019-03-08] MEDS ORDERED: morphine 4 MG/ML inj SYRINge IV ONE (20:25)
[2019-03-08] MEDS ORDERED: CYCL-1 PO (21:27)
[2019-03-08] MEDS ORDERED: IBUP-1984 PO (21:27)
[2019-03-08 21:41] VITALS: BP 132/72
[2019-03-11] MEDS ORDERED: TRAM50TA2 PO (21:59)
== END 2019-03-08 21:44 | disposition home or self-care (01) ==
LOC: ER 18:58
DX: N20.0 Calculus of kidney (principal); R10.32 Left lower quadrant pain; G43.909 Migraine, unspecified, not intractable, without status migrainosus; E78.00 Pure hypercholesterolemia, unspecified; I10 Essential (primary) hypertension; K21.9 Gastro-esophageal reflux disease without esophagitis; G89.29 Other chronic pain; F41.9 Anxiety disorder, unspecified; F31.9 Bipolar disorder, unspecified; Z98.890 Other specified postprocedural states; Z90.49 Acquired absence of other specified parts of digestive tract; Z90.710 Acquired absence of both cervix and uterus; Z88.5 Allergy status to narcotic agent; Z79.82 Long term (current) use of aspirin; Z79.899 Other long term (current) drug therapy; Z87.442 Personal history of urinary calculi; Z91.048 Other nonmedicinal substance allergy status; Z88.8 Allergy status to other drugs, medicaments and biological substances
CPT/HCPCS: 36415; 74176; 80053; 81001; 81025; 83690; 85025; 85610; 96374; 96375; 96376; 99284; J1885; J2270; J2405; J7030

== ENCOUNTER 2019-03-20 22:54 | Emergency (ER) | payer MEDICAID ==
[~2019-03-20] VITALS: Ht 160 cm; Wt 127.0 kg
[2019-03-20] MEDS ORDERED: ketorolac trometh inj. 60 MG/2 ML VIAL IM ONE (23:20)
[2019-03-20] MEDS ORDERED: ketorolac tromethamine 15mg/ml inj. IV ONE (23:35)
[2019-03-20 23:37] LABS: CLARITY,URINE CLOUDY (Clear); COLOR,URINE YELLOW (Yellow); GLUCOSE, URINE NEGATIVE (Neg); KETONES,URINE NEGATIVE (Neg); LEUKOCYTE ESTERASE ,URINE NEGATIVE (Neg); NITRITES, URINE NEGATIVE (Neg); OCCULT BLOOD,URINE NEGATIVE (Neg); PH,URINE 7.5 (4.8-8.0); PROTEIN,URINE NEGATIVE (Neg); UROBILINOGEN,URINE 0.2 E.U/dL (0.2-1.0)
[2019-03-20 23:39] LABS: URINE HCG NEGATIVE (NEG)
[2019-03-20 23:46] LABS: RED CELL DISTRIBUTION WIDTH 13.5 % (11.5-14.5)
[2019-03-20 23:48] LABS: BASOPHILS % (AUTO) 0.4 % (0-1); EOSINOPHILS # (AUTO) 0.2 X10'3 (0-0.9); HEMATOCRIT 43.8 % (35.0-45.0); LYMPHOCYTES % (AUTO) 33.9 % (21-51); MEAN CORPUSCULAR HEMOGLOBIN 33.2 PG (27.0-31.0); MEAN CORPUSCULAR HGB CONC 34.1 g/dL (33.0-36.5); MEAN CORPUSCULAR VOLUME 97.2 FL (78-98); MEAN PLATELET VOLUME 7.4 FL (7.4-10.4); MONOCYTES # (AUTO) 0.5 X10'3 (0-0.9); MONOCYTES % (AUTO) 4.5 % (2-12); NEUTROPHILS % (AUTO) 59.2 % (42-75); PLATELET COUNT 296 X10'3 (140-440); RED BLOOD COUNT 4.51 X10'6 (4.20-5.60); WHITE BLOOD COUNT 11.9 X10'3 (4.5-11.0)
[2019-03-20 23:50] LABS: ALANINE AMINOTRANSFERASE 36 U/L (12-78); ALBUMIN 3.4 G/DL (3.4-5.0); ALBUMIN/GLOBULIN RATIO 0.8 (1.1-1.5); ALKALINE PHOSPHATASE 142 IU/L (46-116); ANION GAP 10 (8-16); ASPARTATE AMINO TRANSFERASE 16 U/L (10-37); BILIRUBIN,TOTAL 0.2 MG/DL (0.1-1.0); BLOOD UREA NITROGEN 16 MG/DL (7-18); BUN/CREATININE RATIO 20.3 (6.6-38.0); CALCIUM 8.7 MG/DL (8.5-10.1); CHLORIDE 105 MMOL/L (99-107); CREATININE 0.79 MG/DL (0.40-0.90); GLUCOSE 101 MG/DL (70-104); SODIUM 139 MMOL/L (135-145); TOTAL CARBON DIOXIDE 23.6 MMOL/L (24-32); TOTAL PROTEIN 7.8 G/DL (6.4-8.2); eGFR 81 ML/MIN
[2019-03-20 23:55] LABS: UA COLLECTION TYPE CLN CATCH MIDSTREAM
[2019-03-20 23:59] LABS: AMORPHOUS PHOSPHATES 4+; BACTERIA,URINE NONE SEEN /HPF (Neg); MUCUS STRANDS NONE SEEN /LPF (Neg); RBC,URINE NONE SEEN /HPF (0-2); SQUAMOUS EPITHELIAL CELL,UR MANY /LPF (FEW); WBC,URINE NONE SEEN /HPF (0-4)
[2019-03-21] MEDS ORDERED: FLO0.4C PO (00:13)
[2019-03-21 00:15] VITALS: BP 145/94
[2019-03-21] MEDS ORDERED: HYDROcodone/acetaminophen 5mg/325mg tablet PO ONE (00:15)
== END 2019-03-21 00:25 | disposition home or self-care (01) ==
LOC: ER 22:55
DX: N23 Unspecified renal colic (principal); G43.909 Migraine, unspecified, not intractable, without status migrainosus; E78.00 Pure hypercholesterolemia, unspecified; I10 Essential (primary) hypertension; K21.9 Gastro-esophageal reflux disease without esophagitis; Z87.442 Personal history of urinary calculi; G89.29 Other chronic pain; F41.9 Anxiety disorder, unspecified; F31.9 Bipolar disorder, unspecified; Z90.49 Acquired absence of other specified parts of digestive tract; Z90.710 Acquired absence of both cervix and uterus; Z98.890 Other specified postprocedural states; Z98.51 Tubal ligation status; Z88.5 Allergy status to narcotic agent; Z91.09 Other allergy status, other than to drugs and biological substances; Z88.8 Allergy status to other drugs, medicaments and biological substances; Z79.899 Other long term (current) drug therapy
CPT/HCPCS: 36415; 80053; 81001; 81025; 85025; 96374; 99283; J1885

== ENCOUNTER 2019-04-04 16:02 | Emergency (ER) | payer MEDICAID ==
[~2019-04-04] VITALS: Ht 160 cm; Wt 125.0 kg
[~2019-04-04 16:02] MED LIST changes: +FLO0.4C PO
[2019-04-04 16:18] VITALS: BP 139/102
[2019-04-04] MEDS ORDERED: fentaNYL/PF 50MCG/1 ML 2ML syringe IM ONE (16:50)
[2019-04-04] MEDS ORDERED: ketorolac trometh inj. 60 MG/2 ML VIAL IM ONE (16:50)
[2019-04-04 17:07] LABS: BASOPHILS % (AUTO) 0.4 % (0-1); EOSINOPHILS # (AUTO) 0.2 X10'3 (0-0.9); EOSINOPHILS % (AUTO) 1.8 % (0-6); HEMATOCRIT 42.7 % (35.0-45.0); HEMOGLOBIN 14.6 g/dl (12.0-16.0); MEAN CORPUSCULAR HEMOGLOBIN 32.9 PG (27.0-31.0); MEAN CORPUSCULAR HGB CONC 34.1 g/dL (33.0-36.5); MEAN CORPUSCULAR VOLUME 96.7 FL (78-98); MEAN PLATELET VOLUME 7.1 FL (7.4-10.4); MONOCYTES # (AUTO) 0.6 X10'3 (0-0.9); MONOCYTES % (AUTO) 5.9 % (2-12); NEUTROPHILS # (AUTO) 6.9 X10'3 (1.8-7.7); NEUTROPHILS % (AUTO) 63.9 % (42-75); PLATELET COUNT 270 X10'3 (140-440); RED BLOOD COUNT 4.42 X10'6 (4.20-5.60); RED CELL DISTRIBUTION WIDTH 13.9 % (11.5-14.5); WHITE BLOOD COUNT 10.8 X10'3 (4.5-11.0)
[2019-04-04 17:10] LABS: CLARITY,URINE SLIGHTLY CLOUDY (Clear); COLOR,URINE YELLOW (Yellow); GLUCOSE, URINE NEGATIVE (Neg); KETONES,URINE NEGATIVE (Neg); LEUKOCYTE ESTERASE ,URINE NEGATIVE (Neg); NITRITES, URINE NEGATIVE (Neg); OCCULT BLOOD,URINE TRACE-INTACT (Neg); PH,URINE 5.5 (4.8-8.0); PROTEIN,URINE NEGATIVE (Neg); UROBILINOGEN,URINE 0.2 E.U/dL (0.2-1.0)
[2019-04-04 17:11] LABS: UA COLLECTION TYPE CLN CATCH MIDSTREAM; URINE HCG NEGATIVE (NEG)
[2019-04-04 17:20] LABS: ALANINE AMINOTRANSFERASE 34 U/L (12-78); ALBUMIN 3.1 G/DL (3.4-5.0); ALBUMIN/GLOBULIN RATIO 0.8 (1.1-1.5); ALKALINE PHOSPHATASE 141 IU/L (46-116); ANION GAP 11 (8-16); ASPARTATE AMINO TRANSFERASE 10 U/L (10-37); BILIRUBIN,TOTAL 0.2 MG/DL (0.1-1.0); BLOOD UREA NITROGEN 10 MG/DL (7-18); BUN/CREATININE RATIO 13.2 (6.6-38.0); CALCIUM 8.7 MG/DL (8.5-10.1); CHLORIDE 110 MMOL/L (99-107); CREATININE 0.76 MG/DL (0.40-0.90); GLUCOSE 112 MG/DL (70-104); POTASSIUM 3.8 MMOL/L (3.5-5.1); SODIUM 144 MMOL/L (135-145); TOTAL PROTEIN 7.2 G/DL (6.4-8.2); eGFR 85 ML/MIN
[2019-04-04 17:25] LABS: MUCUS STRANDS MANY /LPF (Neg); SQUAMOUS EPITHELIAL CELL,UR MANY /LPF (FEW)
[2019-04-04 17:28] LABS: BACTERIA,URINE 1+ /HPF (Neg); RBC,URINE 0-2 /HPF (0-2); WBC,URINE 0-4 /HPF (0-4)
== END 2019-04-04 18:09 | disposition home or self-care (01) ==
LOC: ER 16:03
DX: R10.32 Left lower quadrant pain (principal); M54.9 Dorsalgia, unspecified; G43.909 Migraine, unspecified, not intractable, without status migrainosus; E78.00 Pure hypercholesterolemia, unspecified; I10 Essential (primary) hypertension; K21.9 Gastro-esophageal reflux disease without esophagitis; F41.9 Anxiety disorder, unspecified; F31.9 Bipolar disorder, unspecified; G89.29 Other chronic pain; Z87.442 Personal history of urinary calculi; Z90.49 Acquired absence of other specified parts of digestive tract; Z90.710 Acquired absence of both cervix and uterus; Z98.890 Other specified postprocedural states; Z98.51 Tubal ligation status; Z91.09 Other allergy status, other than to drugs and biological substances; Z88.5 Allergy status to narcotic agent; Z88.8 Allergy status to other drugs, medicaments and biological substances; Z79.82 Long term (current) use of aspirin; Z79.899 Other long term (current) drug therapy
CPT/HCPCS: 36415; 80053; 81001; 81025; 85025; 85610; 96372; 99283; J1885; J3010

== ENCOUNTER 2019-04-13 22:13 | Emergency (ER) | payer MEDICAID ==
[~2019-04-13] VITALS: Ht 160 cm; Wt 77.3 kg
--- NOTE | 2019-04-13 22:49 | NUR ---
PT PLACED IN ROOM , LIGHTS OFF. VISITOR AT BEDSIDE
[2019-04-13] MEDS ORDERED: normal saline 1000ml 1,000 ML IV ONE (23:30)
[2019-04-13] MEDS ORDERED: diazepam inj 5 MG/ML inj. IV ONE (23:30)
[2019-04-13] MEDS ORDERED: ketorolac tromethamine 15mg/ml inj. IV ONE (23:30)
[2019-04-13] MEDS ORDERED: metoclopramide 5 mg/ml inj IV ONE (23:30)
[2019-04-13] MEDS ORDERED: diphenhydrAMINE 50 mg/ml inj IV ONE (23:30)
--- NOTE | 2019-04-14 00:10 | NUR ---
pt in fast track brought over to room 14 to patient care.
[2019-04-14 03:44] VITALS: BP 131/89
== END 2019-04-14 02:23 | disposition home or self-care (01) ==
LOC: ER 22:14
DX: G43.909 Migraine, unspecified, not intractable, without status migrainosus (principal); E78.00 Pure hypercholesterolemia, unspecified; I10 Essential (primary) hypertension; K21.9 Gastro-esophageal reflux disease without esophagitis; G89.29 Other chronic pain; F41.9 Anxiety disorder, unspecified; F31.9 Bipolar disorder, unspecified; Z87.442 Personal history of urinary calculi; Z90.49 Acquired absence of other specified parts of digestive tract; Z90.710 Acquired absence of both cervix and uterus; Z98.51 Tubal ligation status; Z98.890 Other specified postprocedural states; Z88.5 Allergy status to narcotic agent; Z88.8 Allergy status to other drugs, medicaments and biological substances; Z91.09 Other allergy status, other than to drugs and biological substances; Z79.82 Long term (current) use of aspirin; Z79.899 Other long term (current) drug therapy
CPT/HCPCS: 96374; 96375; 99283; J1200; J1885; J2765; J3360; J7030

== ENCOUNTER 2019-04-23 15:38 | Emergency (ER) | payer MEDICAID ==
[~2019-04-23] VITALS: Ht 160 cm; Wt 124.1 kg
[~2019-04-23 15:38] MED LIST changes: -FLO0.4C PO
[2019-04-23] MEDS ORDERED: dexamethasone sod phosphate 10mg/ml inj IM STA (16:34)
[2019-04-23] MEDS ORDERED: proCHLORperazine 10 MG/2 ml inj IM ONE (16:35)
[2019-04-23] MEDS ORDERED: diphenhydrAMINE 50 mg/ml inj IM ONE (16:35)
[2019-04-23 17:33] VITALS: BP 127/82
== END 2019-04-23 17:35 | disposition home or self-care (01) ==
LOC: ER 15:39
DX: G43.909 Migraine, unspecified, not intractable, without status migrainosus (principal); R11.0 Nausea; H53.149 Visual discomfort, unspecified; E78.00 Pure hypercholesterolemia, unspecified; I10 Essential (primary) hypertension; K21.9 Gastro-esophageal reflux disease without esophagitis; G89.29 Other chronic pain; F41.9 Anxiety disorder, unspecified; F31.9 Bipolar disorder, unspecified; Z90.49 Acquired absence of other specified parts of digestive tract; Z90.710 Acquired absence of both cervix and uterus; Z98.51 Tubal ligation status; Z98.890 Other specified postprocedural states; Z88.5 Allergy status to narcotic agent; Z88.8 Allergy status to other drugs, medicaments and biological substances; Z91.048 Other nonmedicinal substance allergy status; Z79.82 Long term (current) use of aspirin; Z79.899 Other long term (current) drug therapy
CPT/HCPCS: 96372; 99283; J0780; J1100; J1200

== ENCOUNTER 2019-05-03 17:28 | Emergency (ER) | payer MEDICAID ==
[~2019-05-03] VITALS: Ht 160 cm; Wt 124.0 kg
[2019-05-03] MEDS ORDERED: LORazepam 1 MG tablet PO ONE ×2 (17:55→18:20)
[2019-05-03 18:12] LABS: CLARITY,URINE SLIGHTLY CLOUDY (Clear); COLOR,URINE YELLOW (Yellow); GLUCOSE, URINE NEGATIVE (Neg); KETONES,URINE NEGATIVE (Neg); LEUKOCYTE ESTERASE ,URINE NEGATIVE (Neg); NITRITES, URINE NEGATIVE (Neg); OCCULT BLOOD,URINE TRACE-INTACT (Neg); PH,URINE 6.5 (4.8-8.0); PROTEIN,URINE TRACE mg/dl (Neg); UROBILINOGEN,URINE 0.2 E.U/dL (0.2-1.0)
[2019-05-03 18:15] LABS: URINE AMPHETAMINE SCREEN NEGATIVE (Neg); URINE BARBITUATE SCREEN NEGATIVE (Neg); URINE BENZODIAZEPINES SCREEN NEGATIVE (Neg); URINE CANNABINOID SCREEN POSITIVE (Neg); URINE COCAINE SCREEN NEGATIVE (Neg); URINE METHADONE SCREEN NEGATIVE (Neg); URINE OPIATE SCREEN NEGATIVE (Neg); URINE PHENCYCLIDINE SCREEN NEGATIVE (Neg)
[2019-05-03 18:16] LABS: BASOPHILS # (AUTO) 0.1 X10'3 (0-0.2); BASOPHILS % (AUTO) 0.6 % (0-1); EOSINOPHILS # (AUTO) 0.2 X10'3 (0-0.9); EOSINOPHILS % (AUTO) 1.2 % (0-6); HEMATOCRIT 41.9 % (35.0-45.0); HEMOGLOBIN 14.4 g/dl (12.0-16.0); LYMPHOCYTES % (AUTO) 23.6 % (21-51); MEAN CORPUSCULAR HEMOGLOBIN 33.3 PG (27.0-31.0); MEAN CORPUSCULAR HGB CONC 34.4 g/dL (33.0-36.5); MEAN CORPUSCULAR VOLUME 96.8 FL (78-98); MEAN PLATELET VOLUME 7.2 FL (7.4-10.4); MONOCYTES # (AUTO) 0.6 X10'3 (0-0.9); MONOCYTES % (AUTO) 4.7 % (2-12); NEUTROPHILS % (AUTO) 69.9 % (42-75); PLATELET COUNT 267 X10'3 (140-440); RED BLOOD COUNT 4.32 X10'6 (4.20-5.60); RED CELL DISTRIBUTION WIDTH 13.4 % (11.5-14.5); WHITE BLOOD COUNT 12.8 X10'3 (4.5-11.0)
[2019-05-03 18:25] LABS: UA COLLECTION TYPE CLN CATCH MIDSTREAM
[2019-05-03 18:27] LABS: BACTERIA,URINE FEW /HPF (Neg); MUCUS STRANDS MODERATE /LPF (Neg); SQUAMOUS EPITHELIAL CELL,UR MANY /LPF (FEW); WBC,URINE 0-4 /HPF (0-4)
[2019-05-03 18:39] LABS: ALANINE AMINOTRANSFERASE 32 U/L (12-78); ALBUMIN 3.4 G/DL (3.4-5.0); ALBUMIN/GLOBULIN RATIO 0.8 (1.1-1.5); ALKALINE PHOSPHATASE 153 IU/L (46-116); ANION GAP 10 (8-16); ASPARTATE AMINO TRANSFERASE 15 U/L (10-37); BILIRUBIN,TOTAL 0.2 MG/DL (0.1-1.0); BLOOD UREA NITROGEN 11 MG/DL (7-18); BUN/CREATININE RATIO 13.4 (6.6-38.0); CHLORIDE 108 MMOL/L (99-107); CREATININE 0.82 MG/DL (0.40-0.90); GLUCOSE 106 MG/DL (70-104); SODIUM 142 MMOL/L (135-145); TOTAL CARBON DIOXIDE 24.3 MMOL/L (24-32); TOTAL PROTEIN 7.9 G/DL (6.4-8.2); eGFR 78 ML/MIN
[2019-05-03 18:41] LABS: ETHANOL < 0.010 GM/DL (0.0-0.010)
[2019-05-03] MEDS ORDERED: OMEP40CA13 PO (19:39)
[2019-05-03] MEDS ORDERED: METO25TA6 PO (19:39)
[2019-05-03] MEDS ORDERED: ASEN10TA9 SL (19:39)
[2019-05-03] MEDS: topiramate 25mg tablet PO SCH (20:50)
[2019-05-03] MEDS: pantoprazole 40mg Tablet.DR PO SCH (20:50)
[2019-05-03] MEDS: metoprolol tartrate 25mg tablet PO SCH (20:50)
[2019-05-03] MEDS: SAPHRIS 10 MG SL SCH (20:51)
[2019-05-03] MEDS: LORazepam 1 MG tablet PO PRN (20:54)
[2019-05-03] MEDS ORDERED: lamoTRIgine 100mg tablet PO SCH (21:00)
[2019-05-03] MEDS ORDERED: ELMIRON 100 MG PO SCH (21:00)
[2019-05-03] MEDS ORDERED: carBAMazepine Ext. Release 200 MG TAB.ER.12H PO SCH (21:00)
[2019-05-03] MEDS ORDERED: traZODone 50mg tablet PO SCH (21:00)
[2019-05-03] MEDS ORDERED: estradiol 1mg tablet PO SCH (21:00)
--- NOTE | 2019-05-03 21:12 | NUR ---
pt resting quietly cooperative with care.
--- NOTE | 2019-05-03 23:14 | NUR ---
pt up to br tolerated well with steady gait.
[2019-05-04] MEDS ORDERED: HYDROcodone/acetaminophen 10/325mg tab PO ONE (03:00)
[2019-05-04] MEDS: cyclobenzaprine 10mg tablet PO PRN ×2 (03:05→13:33)
[2019-05-04] MEDS ORDERED: carBAMazepine Ext. Release 200 MG TAB.ER.12H PO SCH (08:00)
[2019-05-04] MEDS ORDERED: vitamin D (cholecalciferol) 1,000 unit tablet PO SCH (08:00)
[2019-05-04] MEDS ORDERED: cetirizine 10mg tablet PO SCH (08:00)
[2019-05-04] MEDS ORDERED: vitamin B comp w/Vit. C tab 1 TAB TABLET PO SCH (08:00)
[2019-05-04] MEDS: LORazepam 1 MG tablet PO PRN (08:07)
[2019-05-04] MEDS: topiramate 25mg tablet PO SCH (08:08)
[2019-05-04] MEDS: pantoprazole 40mg Tablet.DR PO SCH (08:08)
[2019-05-04] MEDS: ELMIRON 100 MG PO SCH ×2 (08:08→13:07)
[2019-05-04] MEDS: metoprolol tartrate 25mg tablet PO SCH (08:08)
[2019-05-04] MEDS: SAPHRIS 10 MG SL SCH (08:09)
[2019-05-04] MEDS ORDERED: aspirin 81mg tab.chew PO SCH (08:30)
[2019-05-04] MEDS ORDERED: nicotine 21mg patch - 24 hr TD ONE (09:20)
--- NOTE | 2019-05-04 12:06 | NUR ---
Gave report to [facility]. Per [facility] they are looking into acepting the patient.
--- NOTE | 2019-05-04 12:20 | NUR ---
Assumed care of this patient from BALDEMAR Guerrier. Patient lying in bed on her back, with no signs of distress. respirations even.
--- NOTE | 2019-05-04 12:40 | NUR ---
pt's updated hx sent to [facility] reflecting pt's hx of hysterectomy. [facility] had requested an hcg result
--- NOTE | 2019-05-04 13:29 | NUR ---
Patient requesting [place] for back pain-asked patient she would be okay with flexeril, for muscle ache/spasms-pt agreeable
--- NOTE | 2019-05-04 14:30 | NUR ---
Patient sleeping on back, respirations even, pt snoring will continue to monitor.
--- NOTE | 2019-05-04 15:39 | NUR ---
patient discharged to [facility] with transportation team otr truck driver, tech, and information security risk analyst.
[2019-05-04 15:41] VITALS: BP 106/70
[2019-05-05] MEDS ORDERED: nicotine 21mg patch - 24 hr TD ONE (08:00)
== END 2019-05-04 15:45 ==
LOC: ER 17:28
DX: F31.9 Bipolar disorder, unspecified (principal); G43.909 Migraine, unspecified, not intractable, without status migrainosus; E78.00 Pure hypercholesterolemia, unspecified; I10 Essential (primary) hypertension; K21.9 Gastro-esophageal reflux disease without esophagitis; G89.29 Other chronic pain; K59.00 Constipation, unspecified; Z87.442 Personal history of urinary calculi; Z90.49 Acquired absence of other specified parts of digestive tract; Z90.710 Acquired absence of both cervix and uterus; Z98.890 Other specified postprocedural states; Z98.51 Tubal ligation status; Z88.5 Allergy status to narcotic agent; Z91.09 Other allergy status, other than to drugs and biological substances; Z88.8 Allergy status to other drugs, medicaments and biological substances; Z79.82 Long term (current) use of aspirin; Z79.899 Other long term (current) drug therapy
CPT/HCPCS: 36415; 80053; 80305; 80320; 81001; 82542; 84443; 85025; 99285

== ENCOUNTER 2019-05-14 17:58 | Emergency (ER) | payer MEDICAID ==
[~2019-05-14] VITALS: Ht 161.3 cm; Wt 125.0 kg
[~2019-05-14 17:58] MED LIST changes: +ASEN10TA9 SL; -ASEN5TAB SL; +METO25TA6 PO; +OMEP40CA13 PO
[2019-05-14 18:23] LABS: COLOR,URINE YELLOW (Yellow); GLUCOSE, URINE NEGATIVE (Neg); KETONES,URINE NEGATIVE (Neg); LEUKOCYTE ESTERASE ,URINE NEGATIVE (Neg); NITRITES, URINE NEGATIVE (Neg); OCCULT BLOOD,URINE MODERATE (Neg); PROTEIN,URINE NEGATIVE (Neg); UROBILINOGEN,URINE 0.2 E.U/dL (0.2-1.0)
[2019-05-14 18:24] LABS: CLARITY,URINE SLIGHTLY CLOUDY (Clear); UA COLLECTION TYPE CLN CATCH MIDSTREAM
[2019-05-14 18:31] LABS: BACTERIA,URINE FEW /HPF (Neg); RBC,URINE 0-2 /HPF (0-2); SQUAMOUS EPITHELIAL CELL,UR FEW /LPF (FEW); WBC,URINE NONE SEEN /HPF (0-4)
[2019-05-14 18:35] LABS: BASOPHILS # (AUTO) 0.1 X10'3 (0-0.2); BASOPHILS % (AUTO) 0.8 % (0-1); EOSINOPHILS # (AUTO) 0.2 X10'3 (0-0.9); EOSINOPHILS % (AUTO) 1.7 % (0-6); HEMATOCRIT 39.3 % (35.0-45.0); HEMOGLOBIN 13.8 g/dl (12.0-16.0); LYMPHOCYTES # (AUTO) 2.7 X10'3 (1.1-4.8); LYMPHOCYTES % (AUTO) 23.6 % (21-51); MEAN CORPUSCULAR HEMOGLOBIN 33.6 PG (27.0-31.0); MEAN CORPUSCULAR HGB CONC 35.1 g/dL (33.0-36.5); MEAN CORPUSCULAR VOLUME 95.8 FL (78-98); MEAN PLATELET VOLUME 6.8 FL (7.4-10.4); MONOCYTES # (AUTO) 0.5 X10'3 (0-0.9); MONOCYTES % (AUTO) 4.6 % (2-12); NEUTROPHILS % (AUTO) 69.3 % (42-75); PLATELET COUNT 262 X10'3 (140-440); RED CELL DISTRIBUTION WIDTH 13.2 % (11.5-14.5); WHITE BLOOD COUNT 11.6 X10'3 (4.5-11.0)
[2019-05-14 18:56] LABS: ALANINE AMINOTRANSFERASE 26 U/L (12-78); ALBUMIN 3.1 G/DL (3.4-5.0); ALBUMIN/GLOBULIN RATIO 0.8 (1.1-1.5); ALKALINE PHOSPHATASE 139 IU/L (46-116); ANION GAP 11 (8-16); ASPARTATE AMINO TRANSFERASE 11 U/L (10-37); BILIRUBIN,TOTAL 0.2 MG/DL (0.1-1.0); BLOOD UREA NITROGEN 12 MG/DL (7-18); BUN/CREATININE RATIO 14.5 (6.6-38.0); CALCIUM 8.2 MG/DL (8.5-10.1); CHLORIDE 108 MMOL/L (99-107); CREATININE 0.83 MG/DL (0.40-0.90); GLUCOSE 107 MG/DL (70-104); POTASSIUM 3.7 MMOL/L (3.5-5.1); SODIUM 141 MMOL/L (135-145); TOTAL CARBON DIOXIDE 22.5 MMOL/L (24-32); TOTAL PROTEIN 7.1 G/DL (6.4-8.2); eGFR 77 ML/MIN
[2019-05-14 19:35] VITALS: BP 127/79
== END 2019-05-14 19:36 | disposition home or self-care (01) ==
LOC: ER 17:58
DX: R10.32 Left lower quadrant pain (principal); K92.1 Melena; G43.909 Migraine, unspecified, not intractable, without status migrainosus; E78.00 Pure hypercholesterolemia, unspecified; I10 Essential (primary) hypertension; K21.9 Gastro-esophageal reflux disease without esophagitis; G89.29 Other chronic pain; F41.9 Anxiety disorder, unspecified; F31.9 Bipolar disorder, unspecified; F41.0 Panic disorder [episodic paroxysmal anxiety]; Z90.49 Acquired absence of other specified parts of digestive tract; Z87.442 Personal history of urinary calculi; Z90.710 Acquired absence of both cervix and uterus; Z98.51 Tubal ligation status; Z98.890 Other specified postprocedural states; Z88.5 Allergy status to narcotic agent; Z79.899 Other long term (current) drug therapy; Z79.82 Long term (current) use of aspirin
CPT/HCPCS: 36415; 80053; 81001; 85025; 85610; 99283

== ENCOUNTER 2019-07-03 21:20 | Emergency (ER) | payer MEDICAID ==
[~2019-07-03] VITALS: Ht 160 cm; Wt 124.5 kg
[2019-07-03] MEDS ORDERED: normal saline 1000ML IV soln IVB ONE (21:35)
[2019-07-03] MEDS ORDERED: ketorolac tromethamine 15mg/ml inj. IV ONE ×2 (21:35→22:50)
[2019-07-03 21:53] LABS: CLARITY,URINE CLOUDY (Clear); COLOR,URINE YELLOW (Yellow); GLUCOSE, URINE NEGATIVE (Neg); KETONES,URINE NEGATIVE (Neg); LEUKOCYTE ESTERASE ,URINE NEGATIVE (Neg); NITRITES, URINE NEGATIVE (Neg); OCCULT BLOOD,URINE LARGE (Neg); PROTEIN,URINE 30 mg/dl (Neg); UROBILINOGEN,URINE 0.2 E.U/dL (0.2-1.0)
[2019-07-03 21:58] LABS: URINE HCG NEGATIVE (NEG)
[2019-07-03 22:04] LABS: UA COLLECTION TYPE STRAIGHT CATH
[2019-07-03 22:08] LABS: AMORPHOUS URATES 3+; BACTERIA,URINE NONE SEEN /HPF (Neg); MUCUS STRANDS MODERATE /LPF (Neg); RBC,URINE 50-100 /HPF (0-2); SQUAMOUS EPITHELIAL CELL,UR MODERATE /LPF (FEW); WBC,URINE 0-4 /HPF (0-4)
[2019-07-03 22:15] LABS: BASOPHILS % (AUTO) 0.3 % (0-1); EOSINOPHILS # (AUTO) 0.1 X10'3 (0-0.9); EOSINOPHILS % (AUTO) 0.5 % (0-6); HEMATOCRIT 43.6 % (35.0-45.0); HEMOGLOBIN 15.1 g/dl (12.0-16.0); LYMPHOCYTES % (AUTO) 17.1 % (21-51); MEAN CORPUSCULAR HEMOGLOBIN 33.7 PG (27.0-31.0); MEAN CORPUSCULAR HGB CONC 34.6 g/dL (33.0-36.5); MEAN CORPUSCULAR VOLUME 97.4 FL (78-98); MEAN PLATELET VOLUME 7.2 FL (7.4-10.4); MONOCYTES # (AUTO) 0.4 X10'3 (0-0.9); MONOCYTES % (AUTO) 3.3 % (2-12); NEUTROPHILS # (AUTO) 9.3 X10'3 (1.8-7.7); NEUTROPHILS % (AUTO) 78.8 % (42-75); PLATELET COUNT 239 X10'3 (140-440); RED BLOOD COUNT 4.47 X10'6 (4.20-5.60); RED CELL DISTRIBUTION WIDTH 13.7 % (11.5-14.5); WHITE BLOOD COUNT 11.9 X10'3 (4.5-11.0)
[2019-07-03 22:22] LABS: ALANINE AMINOTRANSFERASE 32 U/L (12-78); ALBUMIN 3.6 G/DL (3.4-5.0); ALBUMIN/GLOBULIN RATIO 0.8 (1.1-1.5); ALKALINE PHOSPHATASE 164 IU/L (46-116); ANION GAP 11 (8-16); ASPARTATE AMINO TRANSFERASE 22 U/L (10-37); BILIRUBIN,TOTAL 0.2 MG/DL (0.1-1.0); BLOOD UREA NITROGEN 15 MG/DL (7-18); CALCIUM 9.8 MG/DL (8.5-10.1); CHLORIDE 104 MMOL/L (99-107); CREATININE 1.07 MG/DL (0.40-0.90); GLUCOSE 162 MG/DL (70-104); LIPASE 75 U/L (73-393); POTASSIUM 3.6 MMOL/L (3.5-5.1); SODIUM 141 MMOL/L (135-145); TOTAL CARBON DIOXIDE 26.3 MMOL/L (24-32); TOTAL PROTEIN 8.2 G/DL (6.4-8.2); eGFR 57 ML/MIN
[2019-07-03] MEDS ORDERED: HYDR-4353 PO (23:06)
[2019-07-03] MEDS ORDERED: IBUP-1985 PO (23:06)
[2019-07-03] MEDS ORDERED: FLO0.4C PO (23:06)
[2019-07-03] MEDS ORDERED: morphine 10mg/ml inj. IV ONE (23:10)
[2019-07-03 23:18] VITALS: BP 144/106
== END 2019-07-03 23:35 | disposition home or self-care (01) ==
LOC: ER 21:20
DX: N13.2 Hydronephrosis with renal and ureteral calculous obstruction (principal); G43.909 Migraine, unspecified, not intractable, without status migrainosus; E78.00 Pure hypercholesterolemia, unspecified; I10 Essential (primary) hypertension; K21.9 Gastro-esophageal reflux disease without esophagitis; G89.29 Other chronic pain; F41.9 Anxiety disorder, unspecified; F31.9 Bipolar disorder, unspecified; Z90.49 Acquired absence of other specified parts of digestive tract; Z90.710 Acquired absence of both cervix and uterus; Z98.890 Other specified postprocedural states; Z98.51 Tubal ligation status; Z88.5 Allergy status to narcotic agent; Z88.8 Allergy status to other drugs, medicaments and biological substances; Z79.82 Long term (current) use of aspirin; Z79.899 Other long term (current) drug therapy
CPT/HCPCS: 36415; 74176; 80053; 81001; 81025; 83690; 85025; 96374; 96375; 99284; J1885; J2270; J7030

== ENCOUNTER 2019-07-05 16:30 | Emergency (ER) | payer MEDICARE, MEDICAID ==
[~2019-07-05] VITALS: Ht 160 cm; Wt 123.8 kg
[~2019-07-05 16:30] MED LIST changes: +FLO0.4C PO; +IBUP-1985 PO
[2019-07-05] MEDS ORDERED: normal saline 1000ML IV soln IVB ONE (16:50)
[2019-07-05] MEDS ORDERED: ketorolac trometh. 30mg/ml inj. IV ONE (17:00)
[2019-07-05] MEDS ORDERED: fentaNYL/PF 50MCG/1 ML 2ML syringe IV ONE ×2 (17:00→18:50)
[2019-07-05] MEDS ORDERED: ondansetron/PF 4mg/2ml inj IV ONE (17:00)
--- NOTE | 2019-07-05 17:15 | NUR ---
3 ATTEMPTS FOR A PIV MADE WITHOUT SUCCESS. US IS AT BEDSIDE
[2019-07-05 18:25] LABS: ALANINE AMINOTRANSFERASE 27 U/L (12-78); ALBUMIN 3.3 G/DL (3.4-5.0); ALBUMIN/GLOBULIN RATIO 0.8 (1.1-1.5); ALKALINE PHOSPHATASE 147 IU/L (46-116); ANION GAP 11 (8-16); ASPARTATE AMINO TRANSFERASE 20 U/L (10-37); BILIRUBIN,TOTAL 0.2 MG/DL (0.1-1.0); BLOOD UREA NITROGEN 15 MG/DL (7-18); BUN/CREATININE RATIO 16.5 (6.6-38.0); CALCIUM 9.1 MG/DL (8.5-10.1); CHLORIDE 105 MMOL/L (99-107); CREATININE 0.91 MG/DL (0.40-0.90); GLUCOSE 95 MG/DL (70-104); POTASSIUM 3.9 MMOL/L (3.5-5.1); SODIUM 141 MMOL/L (135-145); TOTAL CARBON DIOXIDE 24.9 MMOL/L (24-32); TOTAL PROTEIN 7.7 G/DL (6.4-8.2); eGFR 69 ML/MIN
[2019-07-05 18:27] LABS: BASOPHILS # (AUTO) 0.1 X10'3 (0-0.2); EOSINOPHILS # (AUTO) 0.2 X10'3 (0-0.9); EOSINOPHILS % (AUTO) 1.3 % (0-6); HEMATOCRIT 41.8 % (35.0-45.0); HEMOGLOBIN 14.4 g/dl (12.0-16.0); LYMPHOCYTES # (AUTO) 3.9 X10'3 (1.1-4.8); LYMPHOCYTES % (AUTO) 30.3 % (21-51); MEAN CORPUSCULAR HEMOGLOBIN 33.9 PG (27.0-31.0); MEAN CORPUSCULAR HGB CONC 34.5 g/dL (33.0-36.5); MEAN PLATELET VOLUME 7.6 FL (7.4-10.4); MONOCYTES # (AUTO) 0.6 X10'3 (0-0.9); MONOCYTES % (AUTO) 4.5 % (2-12); NEUTROPHILS % (AUTO) 62.9 % (42-75); PLATELET COUNT 239 X10'3 (140-440); RED BLOOD COUNT 4.27 X10'6 (4.20-5.60); RED CELL DISTRIBUTION WIDTH 13.8 % (11.5-14.5); WHITE BLOOD COUNT 12.7 X10'3 (4.5-11.0)
[2019-07-05 18:36] LABS: COLOR,URINE YELLOW (Yellow); GLUCOSE, URINE NEGATIVE (Neg); KETONES,URINE NEGATIVE (Neg); LEUKOCYTE ESTERASE ,URINE NEGATIVE (Neg); NITRITES, URINE NEGATIVE (Neg); OCCULT BLOOD,URINE LARGE (Neg); PH,URINE 6.5 (4.8-8.0); PROTEIN,URINE NEGATIVE (Neg); UROBILINOGEN,URINE 0.2 E.U/dL (0.2-1.0)
[2019-07-05 18:43] LABS: CLARITY,URINE SLIGHTLY CLOUDY (Clear); UA COLLECTION TYPE CLN CATCH MIDSTREAM
[2019-07-05 18:44] LABS: WBC,URINE 0-4 /HPF (0-4)
[2019-07-05 18:45] LABS: RBC,URINE 20-50 /HPF (0-2)
[2019-07-05 18:46] LABS: BACTERIA,URINE NONE SEEN /HPF (Neg); SQUAMOUS EPITHELIAL CELL,UR FEW /LPF (FEW)
[2019-07-05] MEDS ORDERED: ketamine 10mg/ml 20ml inj IV ONE ×2 (19:15→19:40)
[2019-07-05] MEDS ORDERED: KETAMINE IV ONE (19:50)
[2019-07-05] MEDS ORDERED: NORMAL SALINE IV ONE (19:50)
[2019-07-05] MEDS ORDERED: CARB200T PO (20:19)
[2019-07-05] MEDS ORDERED: TRAZ-219 PO (20:19)
[2019-07-05 20:20] VITALS: BP 147/89
[2019-07-05] MEDS ORDERED: OXYC-145 PO (20:55)
== END 2019-07-05 20:59 | disposition home or self-care (01) ==
LOC: ER 16:30
DX: N20.0 Calculus of kidney (principal); G43.909 Migraine, unspecified, not intractable, without status migrainosus; E78.00 Pure hypercholesterolemia, unspecified; I10 Essential (primary) hypertension; K21.9 Gastro-esophageal reflux disease without esophagitis; G89.29 Other chronic pain; F41.9 Anxiety disorder, unspecified; F31.9 Bipolar disorder, unspecified; F41.0 Panic disorder [episodic paroxysmal anxiety]; Z90.49 Acquired absence of other specified parts of digestive tract; Z90.710 Acquired absence of both cervix and uterus; Z98.51 Tubal ligation status; Z98.890 Other specified postprocedural states; Z88.8 Allergy status to other drugs, medicaments and biological substances; Z79.82 Long term (current) use of aspirin; Z79.899 Other long term (current) drug therapy
CPT/HCPCS: 36415; 76775; 80053; 81001; 85025; 96374; 96375; 96376; 99284; J1885; J2405; J3010; J7030

== ENCOUNTER 2019-07-09 16:25 | Inpatient (IN) | payer MEDICARE, MEDICAID ==
[~2019-07-09] VITALS: Ht 160 cm; Wt 123.0 kg
[~2019-07-09 16:25] MED LIST changes: +OXYC-145 PO; +TRAZ-219 PO; -TRAZ-91 PO
[2019-07-09 19:00] LABS: CLARITY,URINE CLOUDY (Clear); COLOR,URINE YELLOW (Yellow); GLUCOSE, URINE NEGATIVE (Neg); KETONES,URINE NEGATIVE (Neg); LEUKOCYTE ESTERASE ,URINE NEGATIVE (Neg); NITRITES, URINE NEGATIVE (Neg); OCCULT BLOOD,URINE LARGE (Neg); PH,URINE 6.5 (4.8-8.0); PROTEIN,URINE NEGATIVE (Neg); UROBILINOGEN,URINE 0.2 E.U/dL (0.2-1.0)
[2019-07-09 19:02] LABS: UA COLLECTION TYPE CLN CATCH MIDSTREAM
[2019-07-09 19:08] LABS: WBC,URINE 0-4 /HPF (0-4)
[2019-07-09 19:09] LABS: BACTERIA,URINE FEW /HPF (Neg); SQUAMOUS EPITHELIAL CELL,UR FEW /LPF (FEW)
[2019-07-09] MEDS ORDERED: ondansetron/PF 4mg/2ml inj IV ONE (19:15)
[2019-07-09] MEDS ORDERED: ketorolac trometh. 30mg/ml inj. IV ONE (19:15)
[2019-07-09] MEDS ORDERED: normal saline 1000ML IV soln IVB ONE (19:15)
[2019-07-09] MEDS: morphine 4 MG/ML inj SYRINge IV PRN ×2 (19:42→20:24)
[2019-07-09 19:44] LABS: BASOPHILS # (AUTO) 0.1 X10'3 (0-0.2); BASOPHILS % (AUTO) 0.8 % (0-1); EOSINOPHILS # (AUTO) 0.2 X10'3 (0-0.9); EOSINOPHILS % (AUTO) 1.6 % (0-6); HEMATOCRIT 41.8 % (35.0-45.0); HEMOGLOBIN 14.6 g/dl (12.0-16.0); LYMPHOCYTES # (AUTO) 2.8 X10'3 (1.1-4.8); LYMPHOCYTES % (AUTO) 28.2 % (21-51); MEAN CORPUSCULAR HEMOGLOBIN 34.2 PG (27.0-31.0); MEAN CORPUSCULAR VOLUME 97.8 FL (78-98); MEAN PLATELET VOLUME 7.1 FL (7.4-10.4); MONOCYTES # (AUTO) 0.4 X10'3 (0-0.9); MONOCYTES % (AUTO) 4.3 % (2-12); NEUTROPHILS # (AUTO) 6.6 X10'3 (1.8-7.7); NEUTROPHILS % (AUTO) 65.1 % (42-75); PLATELET COUNT 263 X10'3 (140-440); RED BLOOD COUNT 4.27 X10'6 (4.20-5.60); RED CELL DISTRIBUTION WIDTH 13.4 % (11.5-14.5); WHITE BLOOD COUNT 10.1 X10'3 (4.5-11.0)
[2019-07-09 20:00] LABS: URINE HCG NEGATIVE (NEG)
[2019-07-09 20:05] LABS: ALANINE AMINOTRANSFERASE 33 U/L (12-78); ALBUMIN 3.4 G/DL (3.4-5.0); ALBUMIN/GLOBULIN RATIO 0.8 (1.1-1.5); ALKALINE PHOSPHATASE 161 IU/L (46-116); ANION GAP 12 (8-16); ASPARTATE AMINO TRANSFERASE 23 U/L (10-37); BILIRUBIN,TOTAL 0.2 MG/DL (0.1-1.0); BLOOD UREA NITROGEN 16 MG/DL (7-18); CALCIUM 8.9 MG/DL (8.5-10.1); CHLORIDE 107 MMOL/L (99-107); GLUCOSE 101 MG/DL (70-104); LIPASE 70 U/L (73-393); POTASSIUM 3.9 MMOL/L (3.5-5.1); SODIUM 141 MMOL/L (135-145); TOTAL CARBON DIOXIDE 22.2 MMOL/L (24-32); TOTAL PROTEIN 7.6 G/DL (6.4-8.2); eGFR 80 ML/MIN
--- NOTE | 2019-07-09 20:26 | NUR ---
pt reports pain decreased from 9 to 7. second dose of morphine given
--- NOTE | 2019-07-09 20:55 | NUR ---
DR. MUKHERJEE CALLED BACK AT 20:[address] KELLY
[2019-07-09] MEDS ORDERED: ASEN10TA3 SL (21:24)
[2019-07-09] MEDS ORDERED: TOP100T PO (21:24)
[2019-07-09] MEDS ORDERED: CARB200T PO (21:24)
[2019-07-09] MEDS ORDERED: ASEN10TA SL (21:24)
--- NOTE | 2019-07-09 21:25 | NUR ---
SALINA BETTS NUMBER: [phone]
[2019-07-09] MEDS ORDERED: potassium Cl 20 mEq SR tablet PO PRN ×2 (21:30)
[2019-07-09] MEDS ORDERED: morphine/NS 5 mg/ml CADD 50 ML IV SCH (21:30)
[2019-07-09] MEDS ORDERED: CADD PCA waste documentation MC PRN (21:30)
[2019-07-09] MEDS ORDERED: mag hydrox/Alum hydrox/simeth 30ml oral suspension PO PRN (21:30)
[2019-07-09] MEDS ORDERED: acetaminophen 325mg tablet PO PRN (21:30)
[2019-07-09] MEDS ORDERED: ondansetron/PF 4mg/2ml inj IV PRN (21:30)
[2019-07-09] MEDS ORDERED: naloxone 0.4 mg/ml inj IV PRN (21:30)
[2019-07-09] MEDS ORDERED: magnesium hydroxide 30ml (MOM) UD suspension PO PRN (21:30)
[2019-07-09] MEDS ORDERED: cyclobenzaprine 10mg tablet PO PRN (21:35)
--- NOTE | 2019-07-09 21:40 | NUR ---
per ok for pt to eat. sandwich and juice given
[2019-07-09] MEDS: morphine 2 MG/ML inj. syringe IV PRN (21:52)
[2019-07-09] MEDS: LORazepam 1 MG tablet PO PRN (21:58)
--- NOTE | 2019-07-09 22:00 | NUR ---
pt was rocking in her gurney. states her pain is increasing and that she is anxious. pain and anxiety meds provided. she has had both meds in the past. reports ativan usually works for anxiety
[2019-07-09] MEDS: normal saline 1000ml 1,000 ML IV SCH (22:47)
--- NOTE | 2019-07-09 22:52 | NUR ---
Patient in room TAMMI 348. I have received report from BALDEMAR aHider in ER and had the opportunity to ask questions and assume patient care.
[2019-07-10] VITALS (15 sets, daily range): BP systolic 115–154; BP diastolic 64–101
[2019-07-10] MEDS ORDERED: albuterol 2.5 MG/3 ML nebule NEB PRN
[2019-07-10] MEDS ORDERED: pneumococcal 23-VAL P-sac vacc 25 mcg/0.5ml vial IMVAC ONE (00:05)
[2019-07-10] MEDS ORDERED: temazepam 15mg capsule PO PRN (00:25)
[2019-07-10] MEDS: nicotine 14mg patch - 24hr TD SCH ×2 (00:53→09:16)
[2019-07-10] MEDS: morphine 4 MG/ML inj SYRINge IV PRN ×2 (02:01→18:37)
[2019-07-10] MEDS: morphine 2 MG/ML inj. syringe IV PRN ×4 (05:02→16:46)
[2019-07-10 05:38] LABS: BASOPHILS % (AUTO) 0.2 % (0-1); EOSINOPHILS # (AUTO) 0.2 X10'3 (0-0.9); EOSINOPHILS % (AUTO) 2.2 % (0-6); HEMATOCRIT 36.8 % (35.0-45.0); HEMOGLOBIN 12.8 g/dl (12.0-16.0); LYMPHOCYTES # (AUTO) 2.8 X10'3 (1.1-4.8); LYMPHOCYTES % (AUTO) 34.2 % (21-51); MEAN CORPUSCULAR HEMOGLOBIN 34.3 PG (27.0-31.0); MEAN CORPUSCULAR HGB CONC 34.8 g/dL (33.0-36.5); MEAN CORPUSCULAR VOLUME 98.6 FL (78-98); MEAN PLATELET VOLUME 7.1 FL (7.4-10.4); MONOCYTES # (AUTO) 0.4 X10'3 (0-0.9); MONOCYTES % (AUTO) 5.1 % (2-12); NEUTROPHILS # (AUTO) 4.8 X10'3 (1.8-7.7); NEUTROPHILS % (AUTO) 58.3 % (42-75); PLATELET COUNT 211 X10'3 (140-440); RED BLOOD COUNT 3.73 X10'6 (4.20-5.60); RED CELL DISTRIBUTION WIDTH 13.5 % (11.5-14.5); WHITE BLOOD COUNT 8.2 X10'3 (4.5-11.0)
[2019-07-10 06:14] LABS: ALANINE AMINOTRANSFERASE 31 U/L (12-78); ALBUMIN 2.6 G/DL (3.4-5.0); ALBUMIN/GLOBULIN RATIO 0.7 (1.1-1.5); ALKALINE PHOSPHATASE 133 IU/L (46-116); ANION GAP 8 (8-16); ASPARTATE AMINO TRANSFERASE 22 U/L (10-37); BILIRUBIN,TOTAL 0.3 MG/DL (0.1-1.0); BLOOD UREA NITROGEN 19 MG/DL (7-18); BUN/CREATININE RATIO 23.8 (6.6-38.0); CALCIUM 8.4 MG/DL (8.5-10.1); CHLORIDE 110 MMOL/L (99-107); GLUCOSE 89 MG/DL (70-104); POTASSIUM 3.6 MMOL/L (3.5-5.1); SODIUM 144 MMOL/L (135-145); TOTAL CARBON DIOXIDE 26.2 MMOL/L (24-32); TOTAL PROTEIN 6.1 G/DL (6.4-8.2); eGFR 80 ML/MIN
--- NOTE | 2019-07-10 06:30 | NUR ---
Patient in room TAMMI 348. I have received report from Bernadine MCDERMOTT and had the opportunity to ask questions and assume patient care.
--- NOTE | 2019-07-10 06:38 | NUR ---
Problems reprioritized. Patient report given, questions answered & plan of care reviewed with Lennox RN.
[2019-07-10] MEDS: pentosan 100mg capsule PO SCH ×3 (08:00→20:59)
[2019-07-10] MEDS ORDERED: K and/or MAG REPLACEMENT MC SCH (08:00)
[2019-07-10] MEDS: ASENAPINE MALEATE 10 MG SL SCH (08:00)
[2019-07-10] MEDS: normal saline 1000ml 1,000 ML IV SCH ×2 (09:06→18:34)
[2019-07-10] MEDS: tamsulosin 0.4mg capsule PO SCH (09:07)
[2019-07-10] MEDS: topiramate 100mg tablet PO SCH ×2 (09:07→20:42)
[2019-07-10] MEDS: cetirizine 10mg tablet PO SCH (09:08)
[2019-07-10] MEDS: docusate sod 100mg capsule PO SCH ×2 (09:08→20:40)
[2019-07-10] MEDS: aspirin 81mg tablet.DR PO SCH (09:09)
[2019-07-10] MEDS: pantoprazole 40mg Tablet.DR PO SCH ×2 (09:10→20:41)
[2019-07-10] MEDS ORDERED: potassium CL 10mEq/100ml bag 100 ML IV PRN (09:10)
[2019-07-10] MEDS: metoprolol tartrate 25mg tablet PO SCH ×2 (09:10→20:41)
[2019-07-10] MEDS ORDERED: magnesium 4gm in 100ml NS 100 ML IV PRN (09:10)
[2019-07-10] MEDS ORDERED: magnesium Cl slow-release 64mg tablet PO PRN (09:10)
[2019-07-10] MEDS ORDERED: potassium Cl 20 mEq SR tablet PO PRN ×2 (09:10)
[2019-07-10] MEDS: topiramate 25mg tablet PO SCH ×2 (09:11→20:42)
[2019-07-10] MEDS: carBAMazepine Ext. Release 200 MG TAB.ER.12H PO SCH (09:12)
[2019-07-10] MEDS: LORazepam 1 MG tablet PO PRN (10:50)
[2019-07-10] MEDS ORDERED: iohexol 300 MG/1 ML 50ml polymer ONE (11:58)
[2019-07-10] MEDS ORDERED: midazolam 2 mg/2 ml injection ONE (12:36)
[2019-07-10] MEDS ORDERED: fentaNYL/PF 50MCG/1 ML 2ML syringe ONE (12:36)
[2019-07-10] MEDS ORDERED: propofol inj 20 ML IV ONE (12:38)
[2019-07-10] MEDS ORDERED: ceFAZolin 1000mg inj ONE ×3 (12:49)
--- NOTE | 2019-07-10 13:15 | NUR ---
Received from OR via BED, accompanied by Anesthesiologist JULES and report given by Anesthesiolgist. PT DROWSY, OXYGENATING WELL ON 10 LPM 02 VIA MASK, NO RESP DISTRESS NOTED. PT DENIES NAUSEA, C/O 7/10 L FLANK PAIN. MEDICATED PRN, SEE EMAR. VSS.
[2019-07-10] MEDS ORDERED: meperidine/PF 25mg/ml syringe ONE (13:20)
--- NOTE | 2019-07-10 13:40 | NUR ---
Report called to receiving nurse. Transferred via BED Belongings IN PT ROOM. PAIN LEVEL SLIGHTLY BETTER AFTER RECEIVING DEMEROL IV. PT C/O URETHRAL IRRITATION, I RECOMMENDED THAT SHE DRINK PLENTY OF FLUIDS AND IT WILL IMPROVE WITH TIME. VSS, TOLERATING PO FLUIDS WELL. TRANSFERRED BACK TO 3 SURG IN STABLE CONDITION. Special Issues communicated to receiving nurse.
--- NOTE | 2019-07-10 18:25 | NUR ---
Patient in room TAMMI 348. I have received report from Joe MCDERMOTT and had the opportunity to ask questions and assume patient care.
[2019-07-10] MEDS: heparin, porcine 5000 units/ml vial SQ SCH (20:00)
[2019-07-10] MEDS: oxybutynin 5mg tablet PO SCH (20:44)
[2019-07-10] MEDS: ASENAPINE MALEATE SL SCH (20:45)
[2019-07-10] MEDS: nystatin 15 GM powder TP SCH (20:58)
[2019-07-10] MEDS ORDERED: lamoTRIgine 100mg tablet PO SCH (21:00)
[2019-07-10] MEDS ORDERED: carBAMazepine Ext. Release 200 MG TAB.ER.12H PO SCH (21:00)
[2019-07-10] MEDS ORDERED: traZODone 50mg tablet PO SCH (21:00)
[2019-07-10] MEDS ORDERED: estradiol 1mg tablet PO SCH (21:00)
[2019-07-11] VITALS: BP 145/91
[2019-07-11] MEDS: morphine 4 MG/ML inj SYRINge IV PRN ×3 (00:01→09:12)
[2019-07-11] MEDS: normal saline 1000ml 1,000 ML IV SCH (04:30)
[2019-07-11 05:21] LABS: BASOPHILS % (AUTO) 0.2 % (0-1); EOSINOPHILS # (AUTO) 0.2 X10'3 (0-0.9); EOSINOPHILS % (AUTO) 2.1 % (0-6); HEMATOCRIT 37.7 % (35.0-45.0); HEMOGLOBIN 13.3 g/dl (12.0-16.0); LYMPHOCYTES # (AUTO) 2.5 X10'3 (1.1-4.8); LYMPHOCYTES % (AUTO) 25.3 % (21-51); MEAN CORPUSCULAR HEMOGLOBIN 34.5 PG (27.0-31.0); MEAN CORPUSCULAR HGB CONC 35.2 g/dL (33.0-36.5); MEAN CORPUSCULAR VOLUME 98.1 FL (78-98); MEAN PLATELET VOLUME 7.4 FL (7.4-10.4); MONOCYTES # (AUTO) 0.5 X10'3 (0-0.9); MONOCYTES % (AUTO) 4.8 % (2-12); NEUTROPHILS # (AUTO) 6.8 X10'3 (1.8-7.7); NEUTROPHILS % (AUTO) 67.6 % (42-75); PLATELET COUNT 211 X10'3 (140-440); RED BLOOD COUNT 3.85 X10'6 (4.20-5.60); RED CELL DISTRIBUTION WIDTH 13.8 % (11.5-14.5)
[2019-07-11 05:46] LABS: ALANINE AMINOTRANSFERASE 31 U/L (12-78); ALBUMIN 2.9 G/DL (3.4-5.0); ALBUMIN/GLOBULIN RATIO 0.8 (1.1-1.5); ALKALINE PHOSPHATASE 146 IU/L (46-116); ASPARTATE AMINO TRANSFERASE 22 U/L (10-37); BILIRUBIN,TOTAL 0.3 MG/DL (0.1-1.0); BLOOD UREA NITROGEN 12 MG/DL (7-18); CALCIUM 8.7 MG/DL (8.5-10.1); CREATININE 0.75 MG/DL (0.40-0.90); GLUCOSE 98 MG/DL (70-104); PHOSPHORUS 3.2 MG/DL (2.3-4.5); TOTAL PROTEIN 6.7 G/DL (6.4-8.2); eGFR 86 ML/MIN
[2019-07-11 05:54] LABS: ANION GAP 9 (8-16); CHLORIDE 109 MMOL/L (99-107); POTASSIUM 3.8 MMOL/L (3.5-5.1); SODIUM 142 MMOL/L (135-145)
--- NOTE | 2019-07-11 06:30 | NUR ---
Problems reprioritized. Patient report given, questions answered & plan of care reviewed with LELAND. Addendum: 07/11/19 at 0649 by Pasquale Perez RN Amended: Links added.
--- NOTE | 2019-07-11 06:40 | NUR ---
Patient in room TAMMI 348. I have received report from Joe MCDERMOTT and had the opportunity to ask questions and assume patient care.
[2019-07-11 07:00] VITALS: BP 130/91
[2019-07-11] MEDS: pentosan 100mg capsule PO SCH (08:00)
[2019-07-11] MEDS: heparin, porcine 5000 units/ml vial SQ SCH (08:00)
[2019-07-11] MEDS: nicotine 14mg patch - 24hr TD SCH (08:50)
[2019-07-11] MEDS: topiramate 25mg tablet PO SCH (08:52)
[2019-07-11] MEDS: pantoprazole 40mg Tablet.DR PO SCH (08:52)
[2019-07-11] MEDS: oxybutynin 5mg tablet PO SCH (08:52)
[2019-07-11] MEDS: aspirin 81mg tablet.DR PO SCH (08:52)
[2019-07-11 08:53] VITALS: BP_SYST 130
[2019-07-11] MEDS: topiramate 100mg tablet PO SCH (08:53)
[2019-07-11] MEDS: metoprolol tartrate 25mg tablet PO SCH (08:53)
[2019-07-11] MEDS: ASENAPINE MALEATE SL SCH (08:54)
[2019-07-11] MEDS: ASENAPINE MALEATE 10 MG SL SCH (08:55)
[2019-07-11] MEDS: carBAMazepine Ext. Release 200 MG TAB.ER.12H PO SCH (08:55)
[2019-07-11] MEDS: cetirizine 10mg tablet PO SCH (08:55)
[2019-07-11] MEDS: docusate sod 100mg capsule PO SCH (08:56)
[2019-07-11] MEDS: tamsulosin 0.4mg capsule PO SCH (08:56)
[2019-07-11] MEDS: nystatin 15 GM powder TP SCH (08:56)
[2019-07-11] MEDS ORDERED: OXYB5TAB16 PO (09:09)
[2019-07-11] MEDS ORDERED: NYSPWD TP (09:09)
--- NOTE | 2019-07-11 11:15 | NUR ---
Discharge instructions given to patient, patient verbalized understanding of all instructions made. Peripheral IV catheter removed, tip intact. New prescriptions sent to pharmacy of choice. Instructed patient to ensure she has all her belongings with her before leaving. Medications stored in the hospital pharmacy returned to patient.
== END 2019-07-11 11:20 | disposition home or self-care (01) | DRG 660 ==
LOC: ER 16:26 → ED HOLD 21:55 → SUR 3N 22:42
PROVIDERS: ADMIT Internal Medicine; ATTEND Family Medicine
PROC: 3E0234Z Introduction of Serum, Toxoid and Vaccine into Muscle, Percutaneous Approach (ICD-10-PCS; 2019-07-10)
PROC: BT1F1ZZ Fluoroscopy of Left Kidney, Ureter and Bladder using Low Osmolar Contrast (ICD-10-PCS; 2019-07-10)
PROC: 0T778DZ Dilation of Left Ureter with Intraluminal Device, Via Natural or Artificial Opening Endoscopic (ICD-10-PCS; principal; 2019-07-10 12:31)
DX: N13.2 Hydronephrosis with renal and ureteral calculous obstruction (principal); Z68.42 Body mass index [BMI] 45.0-49.9, adult; K50.90 Crohn's disease, unspecified, without complications; F31.9 Bipolar disorder, unspecified; F43.10 Post-traumatic stress disorder, unspecified; F10.10 Alcohol abuse, uncomplicated; F15.10 Other stimulant abuse, uncomplicated; E78.00 Pure hypercholesterolemia, unspecified; F12.90 Cannabis use, unspecified, uncomplicated; F17.210 Nicotine dependence, cigarettes, uncomplicated; F41.0 Panic disorder [episodic paroxysmal anxiety]; I10 Essential (primary) hypertension; J44.9 Chronic obstructive pulmonary disease, unspecified; G89.4 Chronic pain syndrome; E66.01 Morbid (severe) obesity due to excess calories; G43.909 Migraine, unspecified, not intractable, without status migrainosus; K21.9 Gastro-esophageal reflux disease without esophagitis; M47.9 Spondylosis, unspecified; M54.9 Dorsalgia, unspecified; Z23 Encounter for immunization; Z88.6 Allergy status to analgesic agent; Z88.8 Allergy status to other drugs, medicaments and biological substances; Z90.710 Acquired absence of both cervix and uterus; Z87.442 Personal history of urinary calculi; Z79.82 Long term (current) use of aspirin; Z90.49 Acquired absence of other specified parts of digestive tract; Z98.51 Tubal ligation status; Z71.6 Tobacco abuse counseling
CPT/HCPCS: 36415; 74018; 74420; 76000; 80053; 81001; 81025; 83690; 83735; 84100; 85025; 90732; 96374; 96375; 96376; 99285; A4402; A4618; C1769; C2617; G0378; J0690; J1644; J1885; J2175; J2250; J2270; J2405; J2704; J3010; J7030; Q9967

== ENCOUNTER 2019-07-26 10:45 | Emergency (ER) | payer MEDICARE, MEDICAID ==
[~2019-07-26] VITALS: Ht 160 cm; Wt 119.2 kg
[~2019-07-26 10:45] MED LIST changes: +ASEN10TA SL; +ASEN10TA3 SL; -ASEN10TA9 SL; -IBUP-1985 PO; +NYSPWD TP; +OXYB5TAB16 PO; -OXYC-145 PO
[2019-07-26 11:13] LABS: URINE HCG NEGATIVE (NEG)
[2019-07-26 11:22] LABS: CLARITY,URINE CLOUDY (Clear); COLOR,URINE YELLOW (Yellow); GLUCOSE, URINE NEGATIVE (Neg); KETONES,URINE TRACE mg/dl (Neg); LEUKOCYTE ESTERASE ,URINE MODERATE (Neg); NITRITES, URINE NEGATIVE (Neg); OCCULT BLOOD,URINE LARGE (Neg); PROTEIN,URINE 100 mg/dl (Neg); UROBILINOGEN,URINE 0.2 E.U/dL (0.2-1.0)
[2019-07-26 11:33] LABS: UA COLLECTION TYPE CLN CATCH MIDSTREAM
[2019-07-26 11:46] LABS: SQUAMOUS EPITHELIAL CELL,UR MODERATE /LPF (FEW)
[2019-07-26 11:47] LABS: MUCUS STRANDS MODERATE /LPF (Neg)
[2019-07-26 11:48] LABS: WBC,URINE 30-50 /HPF (0-4)
[2019-07-26 11:49] LABS: BACTERIA,URINE 1+ /HPF (Neg); RBC,URINE TNTC /HPF (0-2)
[2019-07-26 11:51] LABS: CAL OXALATE CRYSTALS FEW /HPF (NEGATIVE)
[2019-07-26 12:20] LABS: BASOPHILS # (AUTO) 0.1 X10'3 (0-0.2); BASOPHILS % (AUTO) 0.9 % (0-1); EOSINOPHILS # (AUTO) 0.3 X10'3 (0-0.9); EOSINOPHILS % (AUTO) 2.9 % (0-6); HEMATOCRIT 41.7 % (35.0-45.0); HEMOGLOBIN 14.7 g/dl (12.0-16.0); LYMPHOCYTES # (AUTO) 2.3 X10'3 (1.1-4.8); LYMPHOCYTES % (AUTO) 23.2 % (21-51); MEAN CORPUSCULAR HEMOGLOBIN 34.3 PG (27.0-31.0); MEAN CORPUSCULAR HGB CONC 35.3 g/dL (33.0-36.5); MEAN CORPUSCULAR VOLUME 97.2 FL (78-98); MEAN PLATELET VOLUME 6.9 FL (7.4-10.4); MONOCYTES # (AUTO) 0.5 X10'3 (0-0.9); MONOCYTES % (AUTO) 5.1 % (2-12); NEUTROPHILS # (AUTO) 6.8 X10'3 (1.8-7.7); NEUTROPHILS % (AUTO) 67.9 % (42-75); PLATELET COUNT 287 X10'3 (140-440); RED CELL DISTRIBUTION WIDTH 13.6 % (11.5-14.5)
[2019-07-26] MEDS ORDERED: ketorolac trometh inj. 60 MG/2 ML VIAL IM ONE (12:20)
[2019-07-26] MEDS ORDERED: ondansetron 4mg rapidly disintigrating tab PO ONE (12:20)
[2019-07-26 12:33] LABS: ALANINE AMINOTRANSFERASE 22 U/L (12-78); ALBUMIN 3.3 G/DL (3.4-5.0); ALBUMIN/GLOBULIN RATIO 0.8 (1.1-1.5); ALKALINE PHOSPHATASE 167 IU/L (46-116); ANION GAP 11 (8-16); ASPARTATE AMINO TRANSFERASE 16 U/L (10-37); BILIRUBIN,TOTAL 0.2 MG/DL (0.1-1.0); BLOOD UREA NITROGEN 12 MG/DL (7-18); BUN/CREATININE RATIO 15.6 (6.6-38.0); CHLORIDE 107 MMOL/L (99-107); CREATININE 0.77 MG/DL (0.40-0.90); GLUCOSE 104 MG/DL (70-104); LIPASE 69 U/L (73-393); POTASSIUM 3.9 MMOL/L (3.5-5.1); SODIUM 142 MMOL/L (135-145); TOTAL CARBON DIOXIDE 23.6 MMOL/L (24-32); TOTAL PROTEIN 7.6 G/DL (6.4-8.2); eGFR 83 ML/MIN
[2019-07-26] MEDS ORDERED: HYDROcodone/acetaminophen 5mg/325mg tablet PO ONE (13:50)
[2019-07-26] MEDS ORDERED: CEPH500C5 PO (14:04)
[2019-07-26 14:10] VITALS: BP 149/102
== END 2019-07-26 14:12 | disposition home or self-care (01) ==
LOC: ER 10:46
DX: N39.0 Urinary tract infection, site not specified (principal); R31.9 Hematuria, unspecified; G43.909 Migraine, unspecified, not intractable, without status migrainosus; E78.00 Pure hypercholesterolemia, unspecified; I10 Essential (primary) hypertension; K21.9 Gastro-esophageal reflux disease without esophagitis; G89.29 Other chronic pain; F41.9 Anxiety disorder, unspecified; F31.9 Bipolar disorder, unspecified; F17.200 Nicotine dependence, unspecified, uncomplicated; Z87.442 Personal history of urinary calculi; Z90.49 Acquired absence of other specified parts of digestive tract; Z90.710 Acquired absence of both cervix and uterus; Z98.51 Tubal ligation status; Z98.890 Other specified postprocedural states; Z88.5 Allergy status to narcotic agent; Z88.8 Allergy status to other drugs, medicaments and biological substances; Z79.82 Long term (current) use of aspirin; Z79.899 Other long term (current) drug therapy
CPT/HCPCS: 36415; 74018; 80053; 81001; 81025; 83690; 85025; 87088; 96372; 99284; J1885

== ENCOUNTER 2019-10-30 17:27 | Emergency (ER) | payer MEDICARE, MEDICAID ==
[~2019-10-30] VITALS: Ht 160 cm; Wt 108.3 kg
[~2019-10-30 17:27] MED LIST changes: -CETI-102 PO; +CETI-90 PO; -FLO0.4C PO; -TRAZ-219 PO; +TRAZ-256 PO
[2019-10-30 17:59] VITALS: BP 127/91
[2019-10-30 18:36] LABS: CLARITY,URINE SLIGHTLY CLOUDY (Clear); COLOR,URINE YELLOW (Yellow); GLUCOSE, URINE NEGATIVE (Neg); KETONES,URINE NEGATIVE (Neg); LEUKOCYTE ESTERASE ,URINE NEGATIVE (Neg); NITRITES, URINE NEGATIVE (Neg); OCCULT BLOOD,URINE NEGATIVE (Neg); PROTEIN,URINE NEGATIVE (Neg)
[2019-10-30 18:37] LABS: UA COLLECTION TYPE CLN CATCH MIDSTREAM
[2019-10-30 18:42] LABS: URINE HCG NEGATIVE (NEG)
[2019-10-30 18:43] LABS: AMORPHOUS PHOSPHATES 2+; MUCUS STRANDS MODERATE /LPF (Neg); SQUAMOUS EPITHELIAL CELL,UR FEW /LPF (FEW)
[2019-10-30 18:45] LABS: BACTERIA,URINE NONE SEEN /HPF (Neg); RBC,URINE NONE SEEN /HPF (0-2); WBC,URINE 0-4 /HPF (0-4)
[2019-10-30 20:21] LABS: BASOPHILS # (AUTO) 0.1 X10'3 (0-0.2); BASOPHILS % (AUTO) 0.7 % (0-1); EOSINOPHILS # (AUTO) 0.1 X10'3 (0-0.9); EOSINOPHILS % (AUTO) 1.3 % (0-6); HEMATOCRIT 43.2 % (35.0-45.0); HEMOGLOBIN 15.2 g/dl (12.0-16.0); LYMPHOCYTES # (AUTO) 3.3 X10'3 (1.1-4.8); LYMPHOCYTES % (AUTO) 31.7 % (21-51); MEAN CORPUSCULAR HEMOGLOBIN 33.7 PG (27.0-31.0); MEAN CORPUSCULAR HGB CONC 35.1 g/dL (33.0-36.5); MEAN CORPUSCULAR VOLUME 96.1 FL (78-98); MEAN PLATELET VOLUME 7.6 FL (7.4-10.4); MONOCYTES # (AUTO) 0.6 X10'3 (0-0.9); MONOCYTES % (AUTO) 5.6 % (2-12); NEUTROPHILS # (AUTO) 6.4 X10'3 (1.8-7.7); NEUTROPHILS % (AUTO) 60.7 % (42-75); PLATELET COUNT 266 X10'3 (140-440); RED BLOOD COUNT 4.49 X10'6 (4.20-5.60); RED CELL DISTRIBUTION WIDTH 13.4 % (11.5-14.5); WHITE BLOOD COUNT 10.5 X10'3 (4.5-11.0)
[2019-10-30] MEDS ORDERED: morphine 4 MG/ML inj SYRINge IV ONE (20:25)
[2019-10-30] MEDS ORDERED: ketorolac tromethamine 15mg/ml inj. IV ONE (20:25)
[2019-10-30] MEDS ORDERED: ondansetron/PF 4mg/2ml inj IV ONE (20:25)
--- NOTE | 2019-10-30 20:28 | NUR ---
PT EN ROUTE TO CT.
[2019-10-30 20:29] LABS: ALANINE AMINOTRANSFERASE 22 U/L (12-78); ALBUMIN 3.5 G/DL (3.4-5.0); ALBUMIN/GLOBULIN RATIO 0.9 (1.1-1.5); ALKALINE PHOSPHATASE 154 IU/L (46-116); ANION GAP 8 (8-16); ASPARTATE AMINO TRANSFERASE 13 U/L (10-37); BILIRUBIN,TOTAL 0.2 MG/DL (0.1-1.0); BLOOD UREA NITROGEN 10 MG/DL (7-18); BUN/CREATININE RATIO 12.2 (6.6-38.0); CALCIUM 8.8 MG/DL (8.5-10.1); CHLORIDE 109 MMOL/L (99-107); CREATININE 0.82 MG/DL (0.40-0.90); GLUCOSE 92 MG/DL (70-104); LIPASE 102 U/L (73-393); POTASSIUM 3.8 MMOL/L (3.5-5.1); SODIUM 141 MMOL/L (135-145); TOTAL CARBON DIOXIDE 24.2 MMOL/L (24-32); TOTAL PROTEIN 7.4 G/DL (6.4-8.2); eGFR 78 ML/MIN
[2019-10-30] MEDS ORDERED: FLO0.4C PO (21:13)
== END 2019-10-30 21:28 | disposition home or self-care (01) ==
LOC: ER 17:28
DX: R10.32 Left lower quadrant pain (principal); G43.909 Migraine, unspecified, not intractable, without status migrainosus; E78.00 Pure hypercholesterolemia, unspecified; I10 Essential (primary) hypertension; K21.9 Gastro-esophageal reflux disease without esophagitis; G89.29 Other chronic pain; F41.9 Anxiety disorder, unspecified; F31.9 Bipolar disorder, unspecified; F41.0 Panic disorder [episodic paroxysmal anxiety]; Z90.49 Acquired absence of other specified parts of digestive tract; Z90.710 Acquired absence of both cervix and uterus; Z98.890 Other specified postprocedural states; Z88.5 Allergy status to narcotic agent; Z88.8 Allergy status to other drugs, medicaments and biological substances
CPT/HCPCS: 36415; 74176; 80053; 81001; 81025; 83690; 85025; 96374; 96375; 99284; J1885; J2270; J2405

== ENCOUNTER 2020-01-07 10:28 | Emergency (ER) | payer MEDICAID, MEDICARE ==
[~2020-01-07] VITALS: Ht 160 cm; Wt 109.1 kg
[2020-01-07 10:49] LABS: CLARITY,URINE CLEAR (Clear); COLOR,URINE YELLOW (Yellow); GLUCOSE, URINE NEGATIVE (Neg); KETONES,URINE NEGATIVE (Neg); LEUKOCYTE ESTERASE ,URINE NEGATIVE (Neg); NITRITES, URINE NEGATIVE (Neg); OCCULT BLOOD,URINE NEGATIVE (Neg); PROTEIN,URINE NEGATIVE (Neg); UROBILINOGEN,URINE 0.2 E.U/dL (0.2-1.0)
[2020-01-07 10:50] LABS: URINE HCG NEGATIVE (NEG)
[2020-01-07] MEDS ORDERED: ondansetron/PF 4mg/2ml inj IV ONE (10:50)
[2020-01-07] MEDS ORDERED: morphine 4 MG/ML inj SYRINge IV ONE (10:50)
[2020-01-07] MEDS ORDERED: normal saline 1000ml 1,000 ML IV ONE (10:50)
[2020-01-07] MEDS ORDERED: ketorolac tromethamine 15mg/ml inj. IV ONE (10:50)
[2020-01-07 10:54] LABS: UA COLLECTION TYPE CLN CATCH MIDSTREAM
[2020-01-07 10:57] VITALS: BP_SYST 116
[2020-01-07 11:06] LABS: BASOPHILS # (AUTO) 0.1 X10'3 (0-0.2); BASOPHILS % (AUTO) 0.7 % (0-1); EOSINOPHILS # (AUTO) 0.2 X10'3 (0-0.9); EOSINOPHILS % (AUTO) 1.4 % (0-6); HEMATOCRIT 44.6 % (35.0-45.0); HEMOGLOBIN 15.2 g/dl (12.0-16.0); LYMPHOCYTES # (AUTO) 2.3 X10'3 (1.1-4.8); LYMPHOCYTES % (AUTO) 21.1 % (21-51); MEAN CORPUSCULAR HGB CONC 34.2 g/dL (33.0-36.5); MEAN CORPUSCULAR VOLUME 99.5 FL (78-98); MEAN PLATELET VOLUME 7.2 FL (7.4-10.4); MONOCYTES # (AUTO) 0.4 X10'3 (0-0.9); MONOCYTES % (AUTO) 4.1 % (2-12); NEUTROPHILS # (AUTO) 7.8 X10'3 (1.8-7.7); NEUTROPHILS % (AUTO) 72.7 % (42-75); PLATELET COUNT 274 X10'3 (140-440); RED BLOOD COUNT 4.48 X10'6 (4.20-5.60); WHITE BLOOD COUNT 10.8 X10'3 (4.5-11.0)
[2020-01-07 11:26] LABS: ALANINE AMINOTRANSFERASE 28 U/L (12-78); ALBUMIN 3.3 G/DL (3.4-5.0); ALBUMIN/GLOBULIN RATIO 0.8 (1.1-1.5); ALKALINE PHOSPHATASE 157 IU/L (46-116); ANION GAP 9 (8-16); ASPARTATE AMINO TRANSFERASE 18 U/L (10-37); BILIRUBIN,TOTAL 0.3 MG/DL (0.1-1.0); BLOOD UREA NITROGEN 11 MG/DL (7-18); BUN/CREATININE RATIO 13.4 (6.6-38.0); CALCIUM 9.1 MG/DL (8.5-10.1); CHLORIDE 109 MMOL/L (99-107); CREATININE 0.82 MG/DL (0.40-0.90); GLUCOSE 98 MG/DL (70-104); LIPASE 84 U/L (73-393); SODIUM 142 MMOL/L (135-145); TOTAL CARBON DIOXIDE 24.5 MMOL/L (24-32); TOTAL PROTEIN 7.4 G/DL (6.4-8.2); eGFR 78 ML/MIN
[2020-01-07] MEDS ORDERED: METR500T PO (11:45)
[2020-01-07] MEDS ORDERED: BACDS PO (11:45)
[2020-01-07 12:20] VITALS: BP_DIAS 69
== END 2020-01-07 12:22 | disposition home or self-care (01) ==
LOC: ER 10:28
DX: K57.33 Diverticulitis of large intestine without perforation or abscess with bleeding (principal); E78.00 Pure hypercholesterolemia, unspecified; I10 Essential (primary) hypertension; K21.9 Gastro-esophageal reflux disease without esophagitis; G89.29 Other chronic pain; F41.9 Anxiety disorder, unspecified; F31.9 Bipolar disorder, unspecified; Z90.49 Acquired absence of other specified parts of digestive tract; Z90.710 Acquired absence of both cervix and uterus; Z98.51 Tubal ligation status; Z98.890 Other specified postprocedural states; Z91.048 Other nonmedicinal substance allergy status; Z88.8 Allergy status to other drugs, medicaments and biological substances; Z79.2 Long term (current) use of antibiotics; Z79.899 Other long term (current) drug therapy
CPT/HCPCS: 36415; 74176; 80053; 81003; 81025; 83690; 85025; 96374; 96375; 99284; J1885; J2270; J2405; J7030

== ENCOUNTER 2020-01-12 18:57 | Emergency (ER) | payer MEDICARE ==
[~2020-01-12] VITALS: Ht 160 cm; Wt 109.1 kg
[~2020-01-12 18:57] MED LIST changes: +BACDS PO; +METR500T PO
[2020-01-12] MEDS ORDERED: ondansetron/PF 4mg/2ml inj IV ONE (19:10)
[2020-01-12] MEDS ORDERED: normal saline 1000ML IV soln IVB ONE (19:10)
[2020-01-12] MEDS ORDERED: morphine 4 MG/ML inj SYRINge IV PRN (19:10)
[2020-01-12 19:18] LABS: BASOPHILS # (AUTO) 0.1 X10'3 (0-0.2); BASOPHILS % (AUTO) 0.8 % (0-1); EOSINOPHILS # (AUTO) 0.2 X10'3 (0-0.9); EOSINOPHILS % (AUTO) 2.1 % (0-6); HEMATOCRIT 43.4 % (35.0-45.0); HEMOGLOBIN 15.2 g/dl (12.0-16.0); LYMPHOCYTES # (AUTO) 3.2 X10'3 (1.1-4.8); LYMPHOCYTES % (AUTO) 28.4 % (21-51); MEAN CORPUSCULAR HEMOGLOBIN 34.7 PG (27.0-31.0); MEAN CORPUSCULAR HGB CONC 34.9 g/dL (33.0-36.5); MEAN CORPUSCULAR VOLUME 99.4 FL (78-98); MEAN PLATELET VOLUME 7.1 FL (7.4-10.4); MONOCYTES # (AUTO) 0.6 X10'3 (0-0.9); MONOCYTES % (AUTO) 5.1 % (2-12); NEUTROPHILS # (AUTO) 7.1 X10'3 (1.8-7.7); NEUTROPHILS % (AUTO) 63.6 % (42-75); PLATELET COUNT 291 X10'3 (140-440); RED BLOOD COUNT 4.37 X10'6 (4.20-5.60); RED CELL DISTRIBUTION WIDTH 13.5 % (11.5-14.5); WHITE BLOOD COUNT 11.2 X10'3 (4.5-11.0)
[2020-01-12 19:29] LABS: ALANINE AMINOTRANSFERASE 31 U/L (12-78); ALBUMIN 3.5 G/DL (3.4-5.0); ALBUMIN/GLOBULIN RATIO 0.8 (1.1-1.5); ALKALINE PHOSPHATASE 163 IU/L (46-116); ANION GAP 9 (8-16); ASPARTATE AMINO TRANSFERASE 20 U/L (10-37); BILIRUBIN,TOTAL 0.2 MG/DL (0.1-1.0); BLOOD UREA NITROGEN 14 MG/DL (7-18); BUN/CREATININE RATIO 14.7 (6.6-38.0); CALCIUM 9.1 MG/DL (8.5-10.1); CHLORIDE 106 MMOL/L (99-107); CREATININE 0.95 MG/DL (0.40-0.90); GLUCOSE 113 MG/DL (70-104); LIPASE 128 U/L (73-393); POTASSIUM 4.3 MMOL/L (3.5-5.1); SODIUM 140 MMOL/L (135-145); TOTAL CARBON DIOXIDE 24.6 MMOL/L (24-32); TOTAL PROTEIN 7.7 G/DL (6.4-8.2); eGFR 65 ML/MIN
[2020-01-12 19:37] LABS: CLARITY,URINE CLEAR (Clear); COLOR,URINE YELLOW (Yellow); GLUCOSE, URINE NEGATIVE (Neg); KETONES,URINE NEGATIVE (Neg); LEUKOCYTE ESTERASE ,URINE NEGATIVE (Neg); NITRITES, URINE NEGATIVE (Neg); OCCULT BLOOD,URINE NEGATIVE (Neg); PROTEIN,URINE NEGATIVE (Neg); UROBILINOGEN,URINE 0.2 E.U/dL (0.2-1.0)
[2020-01-12 19:42] LABS: URINE HCG NEGATIVE (NEG)
[2020-01-12 19:49] LABS: UA COLLECTION TYPE CLN CATCH MIDSTREAM
[2020-01-12] MEDS ORDERED: metroNIDAZOLE-Flagyl 500mg/NS 100 ML IV STA (19:59)
[2020-01-12] MEDS ORDERED: ciprofloxacin lact 400MG/200ML 200 ML IV ONE (20:00)
[2020-01-12] MEDS ORDERED: ketorolac trometh. 30mg/ml inj. IV ONE (20:15)
[2020-01-12] MEDS ORDERED: morphine 4 MG/ML inj SYRINge IV ONE (20:20)
--- NOTE | 2020-01-12 20:40 | NUR ---
PT IS MED WAIT. VSS. FLAGYL IV INFUSING OVER THE NEXT HR, THEN CIPRO IV THEN DC. JUST GIVEN TORADOL.
--- NOTE | 2020-01-12 21:35 | NUR ---
CIPRO ABX RUNNING OVER ONE HR ALONG WITH SECOND FLUID BOLUS
[2020-01-12 22:33] VITALS: BP 124/80
== END 2020-01-12 22:35 | disposition home or self-care (01) ==
LOC: ER 18:58
DX: K57.30 Diverticulosis of large intestine without perforation or abscess without bleeding (principal); G89.29 Other chronic pain; R10.30 Lower abdominal pain, unspecified; G43.909 Migraine, unspecified, not intractable, without status migrainosus; E78.00 Pure hypercholesterolemia, unspecified; I10 Essential (primary) hypertension; K21.9 Gastro-esophageal reflux disease without esophagitis; Z90.49 Acquired absence of other specified parts of digestive tract; Z90.710 Acquired absence of both cervix and uterus; Z98.890 Other specified postprocedural states; Z98.51 Tubal ligation status; Z87.442 Personal history of urinary calculi; Z79.82 Long term (current) use of aspirin; Z79.899 Other long term (current) drug therapy; Z88.5 Allergy status to narcotic agent; Z88.8 Allergy status to other drugs, medicaments and biological substances
CPT/HCPCS: 36415; 74176; 80053; 81003; 81025; 83690; 85025; 96365; 96368; 96375; 96376; 99284; J0744; J1885; J2270; J2405; J3490; J7030; 99285

== ENCOUNTER 2020-03-05 14:07 | Emergency (ER) | payer MEDICARE, MEDICAID ==
[~2020-03-05] VITALS: Ht 160 cm; Wt 104.5 kg
[~2020-03-05 14:07] MED LIST changes: -BACDS PO; -METR500T PO
[2020-03-05 15:03] LABS: CLARITY,URINE CLOUDY (Clear); COLOR,URINE YELLOW (Yellow); GLUCOSE, URINE NEGATIVE (Neg); KETONES,URINE NEGATIVE (Neg); LEUKOCYTE ESTERASE ,URINE NEGATIVE (Neg); NITRITES, URINE NEGATIVE (Neg); OCCULT BLOOD,URINE NEGATIVE (Neg); PH,URINE 7.5 (4.8-8.0); PROTEIN,URINE TRACE mg/dl (Neg); UROBILINOGEN,URINE 0.2 E.U/dL (0.2-1.0)
[2020-03-05 15:03] LABS: BASOPHILS # (AUTO) 0.1 X10'3 (0-0.2); BASOPHILS % (AUTO) 0.5 % (0-1); EOSINOPHILS # (AUTO) 0.2 X10'3 (0-0.9); EOSINOPHILS % (AUTO) 1.8 % (0-6); HEMATOCRIT 47.3 % (35.0-45.0); HEMOGLOBIN 16.2 g/dl (12.0-16.0); LYMPHOCYTES # (AUTO) 2.7 X10'3 (1.1-4.8); LYMPHOCYTES % (AUTO) 26.1 % (21-51); MEAN CORPUSCULAR HEMOGLOBIN 34.5 PG (27.0-31.0); MEAN CORPUSCULAR HGB CONC 34.3 g/dL (33.0-36.5); MEAN CORPUSCULAR VOLUME 100.7 FL (78-98); MEAN PLATELET VOLUME 7.4 FL (7.4-10.4); MONOCYTES # (AUTO) 0.5 X10'3 (0-0.9); NEUTROPHILS # (AUTO) 6.9 X10'3 (1.8-7.7); NEUTROPHILS % (AUTO) 66.6 % (42-75); PLATELET COUNT 278 X10'3 (140-440); RED CELL DISTRIBUTION WIDTH 13.5 % (11.5-14.5); WHITE BLOOD COUNT 10.4 X10'3 (4.5-11.0)
[2020-03-05 15:06] LABS: UA COLLECTION TYPE CLN CATCH MIDSTREAM
[2020-03-05 15:18] LABS: ALANINE AMINOTRANSFERASE 23 U/L (12-78); ALBUMIN 3.5 G/DL (3.4-5.0); ALBUMIN/GLOBULIN RATIO 0.9 (1.1-1.5); ALKALINE PHOSPHATASE 154 IU/L (46-116); ANION GAP 11 (8-16); ASPARTATE AMINO TRANSFERASE 17 U/L (10-37); BILIRUBIN,TOTAL 0.3 MG/DL (0.1-1.0); BLOOD UREA NITROGEN 10 MG/DL (7-18); BUN/CREATININE RATIO 10.4 (6.6-38.0); CALCIUM 8.6 MG/DL (8.5-10.1); CHLORIDE 108 MMOL/L (99-107); CREATININE 0.96 MG/DL (0.40-0.90); GLUCOSE 88 MG/DL (70-104); LIPASE 78 U/L (73-393); POTASSIUM 3.9 MMOL/L (3.5-5.1); SODIUM 144 MMOL/L (135-145); TOTAL CARBON DIOXIDE 24.8 MMOL/L (24-32); TOTAL PROTEIN 7.5 G/DL (6.4-8.2); eGFR 65 ML/MIN
[2020-03-05] MEDS ORDERED: ondansetron/PF 4mg/2ml inj IV ONE (15:20)
[2020-03-05] MEDS ORDERED: morphine 10mg/ml inj. IV ONE (15:20)
[2020-03-05 15:22] LABS: MUCUS STRANDS MODERATE /LPF (Neg); SQUAMOUS EPITHELIAL CELL,UR MODERATE /LPF (FEW)
[2020-03-05 15:24] LABS: BACTERIA,URINE FEW /HPF (Neg); CAL OXALATE CRYSTALS 3+ /HPF (NEGATIVE); RBC,URINE 0-2 /HPF (0-2); WBC,URINE 0-4 /HPF (0-4)
[2020-03-05] MEDS ORDERED: normal saline 1000ML IV soln IVB ONE (15:30)
[2020-03-05] MEDS ORDERED: LORazepam 2 mg/ml vial IV ONE (15:30)
[2020-03-05 16:47] VITALS: BP 113/65
== END 2020-03-05 16:49 | disposition home or self-care (01) ==
LOC: ER 14:08
DX: R10.12 Left upper quadrant pain (principal); R10.32 Left lower quadrant pain; G43.909 Migraine, unspecified, not intractable, without status migrainosus; E78.00 Pure hypercholesterolemia, unspecified; K21.9 Gastro-esophageal reflux disease without esophagitis; I12.9 Hypertensive chronic kidney disease with stage 1 through stage 4 chronic kidney disease, or unspecified chronic kidney disease; N18.9 Chronic kidney disease, unspecified; F41.9 Anxiety disorder, unspecified; F31.9 Bipolar disorder, unspecified; R19.7 Diarrhea, unspecified; Z90.49 Acquired absence of other specified parts of digestive tract; Z90.710 Acquired absence of both cervix and uterus; Z98.51 Tubal ligation status; Z98.890 Other specified postprocedural states; Z88.8 Allergy status to other drugs, medicaments and biological substances; Z79.82 Long term (current) use of aspirin; Z79.899 Other long term (current) drug therapy
CPT/HCPCS: 36415; 76775; 80053; 81001; 83690; 85025; 96361; 96374; 96375; 99284; J2060; J2270; J2405; J7030

== ENCOUNTER 2020-03-19 16:32 | Emergency (ER) | payer MEDICARE, MEDICAID ==
[~2020-03-19] VITALS: Ht 160 cm; Wt 102.3 kg
[2020-03-19] MEDS ORDERED: normal saline 1000ML IV soln IVB ONE (16:45)
[2020-03-19] MEDS ORDERED: ondansetron/PF 4mg/2ml inj IV ONE ×2 (16:45→17:25)
[2020-03-19 17:05] LABS: BASOPHILS # (AUTO) 0.1 X10'3 (0-0.2); BASOPHILS % (AUTO) 0.7 % (0-1); EOSINOPHILS # (AUTO) 0.2 X10'3 (0-0.9); EOSINOPHILS % (AUTO) 1.7 % (0-6); HEMATOCRIT 45.3 % (35.0-45.0); HEMOGLOBIN 15.7 g/dl (12.0-16.0); LYMPHOCYTES # (AUTO) 3.4 X10'3 (1.1-4.8); LYMPHOCYTES % (AUTO) 29.6 % (21-51); MEAN CORPUSCULAR HEMOGLOBIN 33.9 PG (27.0-31.0); MEAN CORPUSCULAR HGB CONC 34.7 g/dL (33.0-36.5); MEAN CORPUSCULAR VOLUME 97.8 FL (78-98); MEAN PLATELET VOLUME 7.4 FL (7.4-10.4); MONOCYTES # (AUTO) 0.6 X10'3 (0-0.9); MONOCYTES % (AUTO) 5.1 % (2-12); NEUTROPHILS # (AUTO) 7.3 X10'3 (1.8-7.7); NEUTROPHILS % (AUTO) 62.9 % (42-75); PLATELET COUNT 264 X10'3 (140-440); RED BLOOD COUNT 4.63 X10'6 (4.20-5.60); RED CELL DISTRIBUTION WIDTH 13.2 % (11.5-14.5); WHITE BLOOD COUNT 11.6 X10'3 (4.5-11.0)
[2020-03-19 17:23] LABS: ALANINE AMINOTRANSFERASE 24 U/L (12-78); ALBUMIN 3.4 G/DL (3.4-5.0); ALBUMIN/GLOBULIN RATIO 0.9 (1.1-1.5); ALKALINE PHOSPHATASE 133 IU/L (46-116); ANION GAP 10 (8-16); ASPARTATE AMINO TRANSFERASE 14 U/L (10-37); BILIRUBIN,TOTAL 0.3 MG/DL (0.1-1.0); BLOOD UREA NITROGEN 12 MG/DL (7-18); CHLORIDE 107 MMOL/L (99-107); CREATININE 1.09 MG/DL (0.40-0.90); GLUCOSE 106 MG/DL (70-104); LIPASE 115 U/L (73-393); POTASSIUM 3.7 MMOL/L (3.5-5.1); SODIUM 141 MMOL/L (135-145); TOTAL CARBON DIOXIDE 24.1 MMOL/L (24-32); TOTAL PROTEIN 7.4 G/DL (6.4-8.2); eGFR 56 ML/MIN
[2020-03-19] MEDS ORDERED: normal saline 1000ml 1,000 ML IV ONE (17:25)
[2020-03-19] MEDS ORDERED: morphine 4 MG/ML inj SYRINge IV ONE (17:25)
[2020-03-19] MEDS ORDERED: VANC125C11 PO (17:57)
[2020-03-19 18:04] LABS: CLARITY,URINE TURBID (Clear); COLOR,URINE YELLOW (Yellow); GLUCOSE, URINE NEGATIVE (Neg); KETONES,URINE NEGATIVE (Neg); LEUKOCYTE ESTERASE ,URINE NEGATIVE (Neg); NITRITES, URINE NEGATIVE (Neg); OCCULT BLOOD,URINE NEGATIVE (Neg); PROTEIN,URINE NEGATIVE (Neg)
[2020-03-19 18:09] LABS: URINE HCG NEGATIVE (NEG)
[2020-03-19 18:13] LABS: UA COLLECTION TYPE VOIDED
[2020-03-19 18:17] LABS: AMORPHOUS PHOSPHATES 3+; BACTERIA,URINE FEW /HPF (Neg); MUCUS STRANDS FEW /LPF (Neg); RBC,URINE 0-2 /HPF (0-2); SQUAMOUS EPITHELIAL CELL,UR MODERATE /LPF (FEW); WBC,URINE NONE SEEN /HPF (0-4)
[2020-03-19 19:07] VITALS: BP 105/67
[2020-03-22 10:10] LABS: C DIFF ANTIGEN NEGATIVE (NEGATIVE); C DIFF SPECIMEN=DIARRHEA? ACCEPTABLE; C DIFFICILE TOXINS A&B NEGATIVE (Neg)
== END 2020-03-19 19:04 | disposition home or self-care (01) ==
LOC: ER 16:33
DX: R19.7 Diarrhea, unspecified (principal); R53.1 Weakness; R42 Dizziness and giddiness; G43.909 Migraine, unspecified, not intractable, without status migrainosus; E78.00 Pure hypercholesterolemia, unspecified; I10 Essential (primary) hypertension; K21.9 Gastro-esophageal reflux disease without esophagitis; G89.29 Other chronic pain; F41.9 Anxiety disorder, unspecified; F31.9 Bipolar disorder, unspecified; Z90.49 Acquired absence of other specified parts of digestive tract; Z90.710 Acquired absence of both cervix and uterus; Z98.51 Tubal ligation status; Z98.890 Other specified postprocedural states; Z88.8 Allergy status to other drugs, medicaments and biological substances; Z79.82 Long term (current) use of aspirin; Z79.899 Other long term (current) drug therapy
CPT/HCPCS: 36415; 80053; 81001; 81025; 83690; 85025; 87324; 87449; 96361; 96374; 96375; 99284; J2270; J2405; J7030

== ENCOUNTER 2020-09-12 16:14 | Emergency (ER) | payer MEDICARE, MEDICAID ==
[~2020-09-12] VITALS: Ht 160 cm; Wt 95.5 kg
[~2020-09-12 16:14] MED LIST changes: +VANC125C11 PO
[2020-09-12 19:12] LABS: URINE HCG NEGATIVE (NEG)
[2020-09-12 19:14] LABS: BASOPHILS # (AUTO) 0.1 X10'3 (0-0.2); BASOPHILS % (AUTO) 0.9 % (0-1); EOSINOPHILS # (AUTO) 0.1 X10'3 (0-0.9); HEMATOCRIT 47.4 % (35.0-45.0); HEMOGLOBIN 16.5 g/dl (12.0-16.0); LYMPHOCYTES % (AUTO) 22.7 % (21-51); MEAN CORPUSCULAR HEMOGLOBIN 34.8 PG (27.0-31.0); MEAN CORPUSCULAR HGB CONC 34.8 g/dL (33.0-36.5); MEAN CORPUSCULAR VOLUME 100.1 FL (78-98); MEAN PLATELET VOLUME 7.3 FL (7.4-10.4); MONOCYTES # (AUTO) 0.4 X10'3 (0-0.9); MONOCYTES % (AUTO) 2.9 % (2-12); NEUTROPHILS # (AUTO) 9.5 X10'3 (1.8-7.7); NEUTROPHILS % (AUTO) 72.5 % (42-75); PLATELET COUNT 297 X10'3 (140-440); RED BLOOD COUNT 4.74 X10'6 (4.20-5.60); RED CELL DISTRIBUTION WIDTH 13.7 % (11.5-14.5); WHITE BLOOD COUNT 13.1 X10'3 (4.5-11.0)
[2020-09-12 19:15] LABS: CLARITY,URINE CLEAR (Clear); COLOR,URINE YELLOW (Yellow); GLUCOSE, URINE NEGATIVE (Neg); KETONES,URINE NEGATIVE (Neg); NITRITES, URINE NEGATIVE (Neg); OCCULT BLOOD,URINE NEGATIVE (Neg); PROTEIN,URINE NEGATIVE (Neg); UROBILINOGEN,URINE 0.2 E.U/dL (0.2-1.0)
[2020-09-12 19:21] LABS: LEUKOCYTE ESTERASE ,URINE NEGATIVE (Neg); PH,URINE 5.5 (4.8-8.0); UA COLLECTION TYPE CLN CATCH MIDSTREAM
[2020-09-12 19:27] LABS: ALANINE AMINOTRANSFERASE 23 U/L (12-78); ALBUMIN 3.8 G/DL (3.4-5.0); ALBUMIN/GLOBULIN RATIO 0.8 (1.1-1.5); ALKALINE PHOSPHATASE 140 IU/L (46-116); ANION GAP 9 (8-16); ASPARTATE AMINO TRANSFERASE 16 U/L (10-37); BILIRUBIN,TOTAL 0.4 MG/DL (0.1-1.0); BLOOD UREA NITROGEN 11 MG/DL (7-18); BUN/CREATININE RATIO 13.1 (6.6-38.0); CALCIUM 9.1 MG/DL (8.5-10.1); CHLORIDE 105 MMOL/L (99-107); CREATININE 0.84 MG/DL (0.40-0.90); GLUCOSE 100 MG/DL (70-104); LIPASE 97 U/L (73-393); POTASSIUM 4.1 MMOL/L (3.5-5.1); SODIUM 139 MMOL/L (135-145); TOTAL CARBON DIOXIDE 24.7 MMOL/L (24-32); TOTAL PROTEIN 8.3 G/DL (6.4-8.2); eGFR 75 ML/MIN
[2020-09-12] MEDS ORDERED: morphine 4 MG/ML inj SYRINge IV ONE ×2 (20:25→21:55)
[2020-09-12] MEDS ORDERED: ondansetron/PF 4mg/2ml inj IV ONE ×2 (20:25→21:55)
[2020-09-12] MEDS ORDERED: iohexol 300mg/ml 100ml inj. ONE (20:56)
--- NOTE | 2020-09-12 21:14 | NUR ---
PT JUST RETURNED FORM CT OF ABD WITH CONTRAST.
[2020-09-12 21:30] VITALS: BP 108/71
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
[2020-09-12] MEDS ORDERED: TRAM50TA2 PO (21:46)
[2020-09-12] MEDS ORDERED: AMOX-422 PO (21:46)
[2020-09-12] MEDS ORDERED: METR500T PO (21:46)
--- NOTE | 2020-09-12 21:51 | NUR ---
WILLIAMS JAUREGUI TALKING WITH PT ABOUT RESULTS AND DC.
== END 2020-09-12 22:48 | disposition home or self-care (01) ==
LOC: ER 16:14
DX: K57.90 Diverticulosis of intestine, part unspecified, without perforation or abscess without bleeding (principal); R10.32 Left lower quadrant pain; G43.909 Migraine, unspecified, not intractable, without status migrainosus; E78.00 Pure hypercholesterolemia, unspecified; I10 Essential (primary) hypertension; K21.9 Gastro-esophageal reflux disease without esophagitis; G89.29 Other chronic pain; F41.9 Anxiety disorder, unspecified; F31.9 Bipolar disorder, unspecified; Z87.442 Personal history of urinary calculi; Z90.89 Acquired absence of other organs; Z90.49 Acquired absence of other specified parts of digestive tract; Z90.710 Acquired absence of both cervix and uterus; Z98.890 Other specified postprocedural states; Z98.51 Tubal ligation status; Z88.8 Allergy status to other drugs, medicaments and biological substances; Z79.2 Long term (current) use of antibiotics; Z79.82 Long term (current) use of aspirin; Z79.899 Other long term (current) drug therapy
CPT/HCPCS: 36415; 74177; 80053; 81003; 81025; 83690; 85025; 96374; 96375; 96376; 99285; J2270; J2405; Q9967

== ENCOUNTER 2020-09-20 15:58 | Emergency (ER) | payer MEDICARE, MEDICAID ==
[~2020-09-20] VITALS: Ht 162.6 cm; Wt 100.0 kg
[~2020-09-20 15:58] MED LIST changes: +AMOX-422 PO; +METR500T PO
[2020-09-20] MEDS ORDERED: DIAZ-63 PO (17:10)
[2020-09-20 17:30] VITALS: BP 151/107
== END 2020-09-20 17:23 | disposition home or self-care (01) ==
LOC: ER 15:58
DX: S16.1XXA Strain of muscle, fascia and tendon at neck level, initial encounter (principal); S40.012A Contusion of left shoulder, initial encounter; G43.909 Migraine, unspecified, not intractable, without status migrainosus; E78.00 Pure hypercholesterolemia, unspecified; I10 Essential (primary) hypertension; K21.9 Gastro-esophageal reflux disease without esophagitis; G89.29 Other chronic pain; Z87.442 Personal history of urinary calculi; F41.9 Anxiety disorder, unspecified; F31.9 Bipolar disorder, unspecified; Z90.49 Acquired absence of other specified parts of digestive tract; Z90.710 Acquired absence of both cervix and uterus; Z98.51 Tubal ligation status; Z98.890 Other specified postprocedural states; F12.90 Cannabis use, unspecified, uncomplicated; Z72.89 Other problems related to lifestyle; Z88.5 Allergy status to narcotic agent; Z88.8 Allergy status to other drugs, medicaments and biological substances; Z79.82 Long term (current) use of aspirin; Z79.899 Other long term (current) drug therapy; V49.49XA Driver injured in collision with other motor vehicles in traffic accident, initial encounter; Y93.89 Activity, other specified; Y92.488 Other paved roadways as the place of occurrence of the external cause; Y99.8 Other external cause status
CPT/HCPCS: 99283

== ENCOUNTER 2020-11-06 15:27 | Emergency (ER) | payer MEDICARE, MEDICAID ==
[~2020-11-06] VITALS: Ht 160 cm; Wt 93.1 kg
[~2020-11-06 15:27] MED LIST changes: -AMOX-422 PO; +DIAZ-63 PO; -METR500T PO
[2020-11-06] MEDS ORDERED: NAPR-56 PO (19:29)
[2020-11-06 20:17] VITALS: BP 130/91
== END 2020-11-06 20:19 | disposition home or self-care (01) ==
LOC: ER 15:27
DX: G62.9 Polyneuropathy, unspecified (principal); G43.909 Migraine, unspecified, not intractable, without status migrainosus; E78.00 Pure hypercholesterolemia, unspecified; I10 Essential (primary) hypertension; K21.9 Gastro-esophageal reflux disease without esophagitis; Z87.442 Personal history of urinary calculi; F12.90 Cannabis use, unspecified, uncomplicated; G89.29 Other chronic pain; Z90.49 Acquired absence of other specified parts of digestive tract; Z90.710 Acquired absence of both cervix and uterus; Z98.51 Tubal ligation status; Z72.89 Other problems related to lifestyle; Z79.82 Long term (current) use of aspirin; Z79.2 Long term (current) use of antibiotics; Z79.899 Other long term (current) drug therapy; Z91.048 Other nonmedicinal substance allergy status; Z88.8 Allergy status to other drugs, medicaments and biological substances
CPT/HCPCS: 99282

== ENCOUNTER 2021-01-17 08:50 | Day surgery (SDC) | payer MEDICARE, MEDICAID ==
[~2021-01-17] VITALS: Ht 162.6 cm; Wt 90.5 kg
[~2021-01-17 08:50] MED LIST changes: +LOP25T PO; -METO25TA6 PO
[2021-01-17 09:00] VITALS: BP 124/84
[2021-01-17] MEDS ORDERED: fentaNYL/PF 50MCG/1 ML 2ML syringe ONE ×3 (09:22→09:24)
[2021-01-17] MEDS ORDERED: LIDOcaine Viscous 15ml cup ONE (09:23)
[2021-01-17] MEDS ORDERED: MIDAZolam 1 MG/ML 5ML VIAL ONE (09:23)
[2021-01-17 11:08] VITALS: BP 99/59
[2021-01-17 11:18] VITALS: BP 118/88
[2021-01-17 11:28] VITALS: BP 127/90
[2021-01-17 11:38] VITALS: BP 108/75
== END 2021-01-17 11:45 | disposition home or self-care (01) ==
LOC: GI LAB 08:50
PROVIDERS: ATTEND Specialist
DX: R19.7 Diarrhea, unspecified (principal); R10.9 Unspecified abdominal pain; R11.0 Nausea; K57.30 Diverticulosis of large intestine without perforation or abscess without bleeding; K52.89 Other specified noninfective gastroenteritis and colitis; K31.7 Polyp of stomach and duodenum; K21.9 Gastro-esophageal reflux disease without esophagitis; G43.909 Migraine, unspecified, not intractable, without status migrainosus; I10 Essential (primary) hypertension; Z87.442 Personal history of urinary calculi; F12.90 Cannabis use, unspecified, uncomplicated; Z79.899 Other long term (current) drug therapy
CPT/HCPCS: 43239; 45380; 99153; G0500; J2250; J3010; J7040; 99152; A4620

== ENCOUNTER 2021-02-13 16:13 | Emergency (ER) | payer MEDICARE, MEDICAID ==
[~2021-02-13] VITALS: Ht 162.6 cm; Wt 88.9 kg
[~2021-02-13 16:13] MED LIST changes: -ASPI81TA44 PO; -CYCL-1 PO; -DIAZ-63 PO; -HYDR-4353 PO; -LORA1TAB PO; -NYSPWD TP; -OMEP40CA13 PO; -VANC125C11 PO; -VITA-268 PO
[2021-02-13 16:20] VITALS: BP 107/65
[2021-02-13 16:44] LABS: CLARITY,URINE SLIGHTLY CLOUDY (Clear); COLOR,URINE YELLOW (Yellow); GLUCOSE, URINE NEGATIVE (Neg); KETONES,URINE NEGATIVE (Neg); LEUKOCYTE ESTERASE ,URINE NEGATIVE (Neg); NITRITES, URINE NEGATIVE (Neg); OCCULT BLOOD,URINE NEGATIVE (Neg); PROTEIN,URINE NEGATIVE (Neg); UA COLLECTION TYPE CLN CATCH MIDSTREAM; UROBILINOGEN,URINE 0.2 E.U/dL (0.2-1.0)
[2021-02-13 16:45] LABS: URINE HCG NEGATIVE (NEG)
[2021-02-13 17:00] LABS: MUCUS STRANDS MODERATE /LPF (Neg); SQUAMOUS EPITHELIAL CELL,UR MODERATE /LPF (FEW)
[2021-02-13 17:01] LABS: BACTERIA,URINE FEW /HPF (Neg); RBC,URINE 0-2 /HPF (0-2); WBC,URINE 0-4 /HPF (0-4)
[2021-02-13] MEDS ORDERED: ketorolac trometh. 30mg/ml inj. IM ONE (17:40)
--- NOTE | 2021-02-13 18:23 | NUR ---
US of Kidney completed.
== END 2021-02-13 19:08 | disposition home or self-care (01) ==
LOC: ER 16:14
DX: R10.9 Unspecified abdominal pain (principal); R11.0 Nausea; E78.00 Pure hypercholesterolemia, unspecified; G43.909 Migraine, unspecified, not intractable, without status migrainosus; I10 Essential (primary) hypertension; G89.29 Other chronic pain; M54.5 Low back pain; F31.9 Bipolar disorder, unspecified; Z88.5 Allergy status to narcotic agent; Z79.899 Other long term (current) drug therapy
CPT/HCPCS: 76770; 81001; 81025; 96372; 99284; J1885

== ENCOUNTER 2021-03-07 11:42 | Emergency (ER) | payer MEDICARE, MEDICAID ==
[~2021-03-07] VITALS: Ht 162.6 cm; Wt 87.3 kg
[2021-03-07 12:48] LABS: BASOPHILS % (AUTO) 0.4 % (0-1); EOSINOPHILS # (AUTO) 0.1 X10'3 (0-0.9); EOSINOPHILS % (AUTO) 0.5 % (0-6); HEMATOCRIT 46.4 % (35.0-45.0); HEMOGLOBIN 16.3 g/dl (12.0-16.0); LYMPHOCYTES # (AUTO) 2.7 X10'3 (1.1-4.8); LYMPHOCYTES % (AUTO) 25.5 % (21-51); MEAN PLATELET VOLUME 8.3 FL (7.4-10.4); MONOCYTES # (AUTO) 0.5 X10'3 (0-0.9); MONOCYTES % (AUTO) 4.6 % (2-12); NEUTROPHILS # (AUTO) 7.2 X10'3 (1.8-7.7); PLATELET COUNT 248 X10'3 (140-440); RED BLOOD COUNT 4.64 X10'6 (4.20-5.60); RED CELL DISTRIBUTION WIDTH 12.4 % (11.5-14.5); WHITE BLOOD COUNT 10.5 X10'3 (4.5-11.0)
[2021-03-07 13:07] LABS: ALANINE AMINOTRANSFERASE 44 U/L (12-78); ALBUMIN 3.8 G/DL (3.4-5.0); ALBUMIN/GLOBULIN RATIO 0.9 (1.1-1.5); ALKALINE PHOSPHATASE 96 IU/L (46-116); ANION GAP 13 (8-16); ASPARTATE AMINO TRANSFERASE 28 U/L (10-37); BILIRUBIN,TOTAL 0.7 MG/DL (0.1-1.0); BLOOD UREA NITROGEN 16 MG/DL (7-18); BUN/CREATININE RATIO 23.5 (6.6-38.0); CALCIUM 9.4 MG/DL (8.5-10.1); CHLORIDE 107 MMOL/L (99-107); CREATININE 0.68 MG/DL (0.40-0.90); GLUCOSE 98 MG/DL (70-104); POTASSIUM 4.2 MMOL/L (3.5-5.1); SODIUM 140 MMOL/L (135-145); TOTAL CARBON DIOXIDE 19.7 MMOL/L (24-32); TOTAL PROTEIN 7.9 G/DL (6.4-8.2); eGFR > 90 ML/MIN
[2021-03-07] MEDS ORDERED: normal saline 1000ml 1,000 ML IV ONE ×2 (13:25)
[2021-03-07] MEDS ORDERED: ondansetron/PF 4mg/2ml inj IV ONE (13:25)
[2021-03-07 13:30] LABS: LIPASE 72 U/L (73-393)
[2021-03-07] MEDS ORDERED: pantoprazole 40 MG vial IV ONE (14:15)
[2021-03-07 14:56] LABS: CLARITY,URINE CLOUDY (Clear); GLUCOSE, URINE NEGATIVE (Neg); KETONES,URINE >=80 mg/dl (Neg); LEUKOCYTE ESTERASE ,URINE NEGATIVE (Neg); NITRITES, URINE NEGATIVE (Neg); OCCULT BLOOD,URINE NEGATIVE (Neg); PROTEIN,URINE 30 mg/dl (Neg)
[2021-03-07 14:58] LABS: COLOR,URINE DARK YELLOW (Yellow); UA COLLECTION TYPE CLN CATCH MIDSTREAM
--- NOTE | 2021-03-07 14:58 | NUR ---
Patient's heart rate in low 50s. Pt reports this is "normal" for her. She has not taken her propanolol today. She last took it yesterday. Addendum: 03/07/21 at 1545 by [email or web address] Patient's heart rate in low 50s. Pt reports this is "normal" for her. She has not taken her propanolol today. She last took it yesterday. Provider aware.
[2021-03-07] MEDS ORDERED: mag hydrox/Alum hydrox/simeth 30ml oral suspension PO ONE (15:00)
[2021-03-07] MEDS ORDERED: LIDOcaine Viscous 15ml cup MM ONE (15:00)
[2021-03-07 15:02] LABS: MUCUS STRANDS MANY /LPF (Neg); SQUAMOUS EPITHELIAL CELL,UR MANY /LPF (FEW)
[2021-03-07 15:03] LABS: CAL OXALATE CRYSTALS 2+ /HPF (NEGATIVE)
[2021-03-07 15:04] LABS: BACTERIA,URINE 4+ /HPF (Neg); RBC,URINE 0-2 /HPF (0-2); WBC,URINE 0-4 /HPF (0-4)
[2021-03-07] MEDS ORDERED: ONDA4TAB6 PO (15:51)
[2021-03-07 16:24] VITALS: BP 125/82
== END 2021-03-07 16:17 | disposition home or self-care (01) ==
LOC: ER 11:43
DX: R11.2 Nausea with vomiting, unspecified (principal); R10.84 Generalized abdominal pain; K31.84 Gastroparesis; R63.4 Abnormal weight loss; G43.909 Migraine, unspecified, not intractable, without status migrainosus; E78.00 Pure hypercholesterolemia, unspecified; I10 Essential (primary) hypertension; K21.9 Gastro-esophageal reflux disease without esophagitis; G89.29 Other chronic pain; F41.9 Anxiety disorder, unspecified; F31.9 Bipolar disorder, unspecified; F12.90 Cannabis use, unspecified, uncomplicated; Z87.442 Personal history of urinary calculi; Z90.89 Acquired absence of other organs; Z90.49 Acquired absence of other specified parts of digestive tract; Z90.710 Acquired absence of both cervix and uterus; Z98.890 Other specified postprocedural states; Z98.51 Tubal ligation status; Z72.89 Other problems related to lifestyle; Z88.8 Allergy status to other drugs, medicaments and biological substances; Z88.1 Allergy status to other antibiotic agents; Z79.899 Other long term (current) drug therapy
CPT/HCPCS: 36415; 80053; 81001; 83690; 85025; 96361; 96374; 96375; 99285; C9113; J2405; J7030

== ENCOUNTER 2021-05-18 11:17 | Emergency (ER) | payer MEDICARE, MEDICAID ==
[~2021-05-18 11:17] MED LIST changes: +ONDA4TAB6 PO
== END 2021-05-18 13:30 | disposition left against medical advice (07) ==
LOC: ER 11:18
DX: M25.559 Pain in unspecified hip (principal); Z53.21 Procedure and treatment not carried out due to patient leaving prior to being seen by health care provider

== ENCOUNTER 2021-05-28 14:56 | Emergency (ER) | payer MEDICARE, MEDICAID ==
[~2021-05-28] VITALS: Ht 160 cm; Wt 86.0 kg
[2021-05-28 17:10] LABS: UA COLLECTION TYPE CLN CATCH MIDSTREAM
[2021-05-28 17:11] LABS: CLARITY,URINE CLEAR (Clear); COLOR,URINE YELLOW (Yellow); GLUCOSE, URINE NEGATIVE (Neg); KETONES,URINE NEGATIVE (Neg); LEUKOCYTE ESTERASE ,URINE NEGATIVE (Neg); NITRITES, URINE NEGATIVE (Neg); OCCULT BLOOD,URINE NEGATIVE (Neg); PH,URINE 7.5 (4.8-8.0); PROTEIN,URINE NEGATIVE (Neg); UROBILINOGEN,URINE 0.2 E.U/dL (0.2-1.0)
[2021-05-28] MEDS ORDERED: normal saline 1000ML IV soln IVB ONE (17:55)
[2021-05-28] MEDS ORDERED: ketorolac trometh. 30mg/ml inj. IV ONE (17:55)
[2021-05-28 18:57] LABS: ALANINE AMINOTRANSFERASE 21 U/L (12-78); ALBUMIN 3.4 G/DL (3.4-5.0); ALKALINE PHOSPHATASE 97 IU/L (46-116); ANION GAP 11 (8-16); ASPARTATE AMINO TRANSFERASE 12 U/L (10-37); BILIRUBIN,TOTAL 0.5 MG/DL (0.1-1.0); BLOOD UREA NITROGEN 8 MG/DL (7-18); CHLORIDE 108 MMOL/L (99-107); CREATININE 0.89 MG/DL (0.40-0.90); GLUCOSE 84 MG/DL (70-104); POTASSIUM 4.2 MMOL/L (3.5-5.1); SODIUM 144 MMOL/L (135-145); TOTAL CARBON DIOXIDE 25.1 MMOL/L (24-32); TOTAL PROTEIN 6.9 G/DL (6.4-8.2); eGFR 70 ML/MIN
[2021-05-28 18:58] LABS: BASOPHILS % (AUTO) 0.3 % (0-1); EOSINOPHILS # (AUTO) 0.2 X10'3 (0-0.9); EOSINOPHILS % (AUTO) 1.4 % (0-6); HEMATOCRIT 43.8 % (35.0-45.0); HEMOGLOBIN 14.9 g/dl (12.0-16.0); LYMPHOCYTES # (AUTO) 3.4 X10'3 (1.1-4.8); MEAN CORPUSCULAR VOLUME 100.2 FL (78-98); MEAN PLATELET VOLUME 7.5 FL (7.4-10.4); MONOCYTES # (AUTO) 0.4 X10'3 (0-0.9); MONOCYTES % (AUTO) 3.8 % (2-12); NEUTROPHILS % (AUTO) 63.5 % (42-75); PLATELET COUNT 224 X10'3 (140-440); RED BLOOD COUNT 4.37 X10'6 (4.20-5.60); RED CELL DISTRIBUTION WIDTH 13.1 % (11.5-14.5)
[2021-05-28] MEDS ORDERED: HYDROcodone/acetaminophen 10/325mg tab PO ONE (19:35)
[2021-05-28 19:40] LABS: URINE HCG NEGATIVE (NEG)
[2021-05-28] MEDS ORDERED: HYDR-3965 PO (19:52)
[2021-05-28] MEDS ORDERED: DICY10CA88 PO (19:52)
[2021-05-28 20:32] VITALS: BP 111/68
== END 2021-05-28 20:29 | disposition home or self-care (01) ==
LOC: ER 14:56
DX: R10.32 Left lower quadrant pain (principal); E78.00 Pure hypercholesterolemia, unspecified; I10 Essential (primary) hypertension; F31.9 Bipolar disorder, unspecified; F12.10 Cannabis abuse, uncomplicated; Z88.8 Allergy status to other drugs, medicaments and biological substances; Z79.899 Other long term (current) drug therapy; Z88.5 Allergy status to narcotic agent
CPT/HCPCS: 36415; 80053; 81003; 81025; 85025; 96361; 96374; 99283; J1885; J7030

== ENCOUNTER 2021-07-10 08:07 | Emergency (ER) | payer MEDICARE, MEDICAID ==
[~2021-07-10] VITALS: Ht 160 cm; Wt 86.4 kg
[~2021-07-10 08:07] MED LIST changes: +DICY10CA88 PO
[2021-07-10 08:34] VITALS: BP 118/88
[2021-07-10] MEDS ORDERED: HYDR-3686 PO (09:16)
[2021-07-10] MEDS ORDERED: PRED50TA PO (09:16)
[2021-07-10] MEDS ORDERED: ALBU18HF2 INH (09:32)
== END 2021-07-10 09:58 | disposition home or self-care (01) ==
LOC: ER 08:08
DX: L23.9 Allergic contact dermatitis, unspecified cause (principal); T39.8X5A Adverse effect of other nonopioid analgesics and antipyretics, not elsewhere classified, initial encounter; G43.909 Migraine, unspecified, not intractable, without status migrainosus; E78.00 Pure hypercholesterolemia, unspecified; I10 Essential (primary) hypertension; K21.9 Gastro-esophageal reflux disease without esophagitis; G89.29 Other chronic pain; F41.9 Anxiety disorder, unspecified; F31.9 Bipolar disorder, unspecified; F12.90 Cannabis use, unspecified, uncomplicated; Z87.442 Personal history of urinary calculi; Z90.89 Acquired absence of other organs; Z90.49 Acquired absence of other specified parts of digestive tract; Z90.710 Acquired absence of both cervix and uterus; Z98.51 Tubal ligation status; Z98.890 Other specified postprocedural states; Z72.89 Other problems related to lifestyle; Z88.1 Allergy status to other antibiotic agents; Z88.8 Allergy status to other drugs, medicaments and biological substances; Z79.899 Other long term (current) drug therapy; Y92.89 Other specified places as the place of occurrence of the external cause
CPT/HCPCS: 99283

== ENCOUNTER 2021-07-20 12:00 | Emergency (ER) | payer MEDICARE, MEDICAID ==
[~2021-07-20] VITALS: Ht 160 cm; Wt 80.2 kg
[~2021-07-20 12:00] MED LIST changes: +HYDR-3686 PO; +PRED50TA PO
[2021-07-20 12:18] VITALS: BP 125/87
[2021-07-20] MEDS ORDERED: TRIA15CR62 TOP (18:35)
[2021-07-20] MEDS ORDERED: PRED20TA PO (18:35)
[2021-07-20] MEDS ORDERED: DIPH25CA83 PO (18:35)
== END 2021-07-20 18:44 | disposition home or self-care (01) ==
LOC: ER 12:01
DX: L23.9 Allergic contact dermatitis, unspecified cause (principal); E78.00 Pure hypercholesterolemia, unspecified; G43.909 Migraine, unspecified, not intractable, without status migrainosus; I11.9 Hypertensive heart disease without heart failure; G89.29 Other chronic pain; M54.9 Dorsalgia, unspecified; F31.9 Bipolar disorder, unspecified; F12.10 Cannabis abuse, uncomplicated; Z88.5 Allergy status to narcotic agent; Z88.8 Allergy status to other drugs, medicaments and biological substances; Z79.899 Other long term (current) drug therapy
CPT/HCPCS: 99283

== ENCOUNTER 2021-08-18 15:56 | Emergency (ER) | payer MEDICARE, MEDICAID ==
[~2021-08-18] VITALS: Ht 160 cm; Wt 81.8 kg
[~2021-08-18 15:56] MED LIST changes: +DIPH25CA83 PO
[2021-08-18 16:44] LABS: BASOPHILS # (AUTO) 0.2 X10'3 (0-0.2); BASOPHILS % (AUTO) 1.8 % (0-1); EOSINOPHILS # (AUTO) 0.1 X10'3 (0-0.9); EOSINOPHILS % (AUTO) 1.1 % (0-6); HEMATOCRIT 46.7 % (35.0-45.0); HEMOGLOBIN 16.7 g/dl (12.0-16.0); LYMPHOCYTES # (AUTO) 2.8 X10'3 (1.1-4.8); LYMPHOCYTES % (AUTO) 26.2 % (21-51); MEAN CORPUSCULAR HEMOGLOBIN 34.7 PG (27.0-31.0); MEAN CORPUSCULAR HGB CONC 35.8 g/dL (33.0-36.5); MEAN CORPUSCULAR VOLUME 96.9 FL (78-98); MEAN PLATELET VOLUME 7.4 FL (7.4-10.4); MONOCYTES # (AUTO) 0.4 X10'3 (0-0.9); MONOCYTES % (AUTO) 3.9 % (2-12); NEUTROPHILS # (AUTO) 7.1 X10'3 (1.8-7.7); PLATELET COUNT 280 X10'3 (140-440); RED BLOOD COUNT 4.82 X10'6 (4.20-5.60); RED CELL DISTRIBUTION WIDTH 12.8 % (11.5-14.5); WHITE BLOOD COUNT 10.5 X10'3 (4.5-11.0)
[2021-08-18 16:47] LABS: CLARITY,URINE CLEAR (Clear); COLOR,URINE YELLOW (Yellow); GLUCOSE, URINE NEGATIVE (Neg); KETONES,URINE NEGATIVE (Neg); LEUKOCYTE ESTERASE ,URINE NEGATIVE (Neg); NITRITES, URINE NEGATIVE (Neg); OCCULT BLOOD,URINE NEGATIVE (Neg); PH,URINE 7.5 (4.8-8.0); PROTEIN,URINE NEGATIVE (Neg); UROBILINOGEN,URINE 0.2 E.U/dL (0.2-1.0)
[2021-08-18 16:52] LABS: ALANINE AMINOTRANSFERASE 24 U/L (12-78); ALBUMIN 3.9 G/DL (3.4-5.0); ALKALINE PHOSPHATASE 90 IU/L (46-116); ANION GAP 10 (8-16); ASPARTATE AMINO TRANSFERASE 11 U/L (10-37); BILIRUBIN,TOTAL 0.3 MG/DL (0.1-1.0); BLOOD UREA NITROGEN 8 MG/DL (7-18); BUN/CREATININE RATIO 9.6 (6.6-38.0); CALCIUM 9.3 MG/DL (8.5-10.1); CHLORIDE 105 MMOL/L (99-107); CREATININE 0.83 MG/DL (0.40-0.90); GLUCOSE 88 MG/DL (70-104); LIPASE 68 U/L (73-393); POTASSIUM 3.4 MMOL/L (3.5-5.1); SODIUM 142 MMOL/L (135-145); TOTAL CARBON DIOXIDE 26.9 MMOL/L (24-32); eGFR 76 ML/MIN
[2021-08-18 16:53] LABS: URINE HCG NEGATIVE (NEG)
[2021-08-18 16:56] LABS: UA COLLECTION TYPE CLN CATCH MIDSTREAM
[2021-08-18 17:12] LABS: PLATELET ESTIMATE NORMAL; SPHEROCYTES FEW
--- NOTE | 2021-08-18 17:35 | NUR ---
WILLIAMS HENDRIX AT BEDSIDE.
[2021-08-18] MEDS ORDERED: methylPREDNISolone sod succ 125mg/2ml vial IV ONE (17:40)
[2021-08-18] MEDS ORDERED: ondansetron/PF 4mg/2ml inj IV ONE (17:40)
[2021-08-18] MEDS ORDERED: normal saline 1000ML IV soln IVB ONE (17:40)
[2021-08-18 17:55] VITALS: BP 135/88
[2021-08-18] MEDS ORDERED: PRED10TA23 PO (18:13)
[2021-08-18] MEDS ORDERED: ONDA4TAB6 PO (18:13)
[2021-08-18] MEDS ORDERED: HYDROcodone/acetaminophen 5mg/325mg tablet PO ONE (18:15)
== END 2021-08-18 18:59 | disposition home or self-care (01) ==
LOC: ER 15:57
DX: A08.4 Viral intestinal infection, unspecified (principal); G43.909 Migraine, unspecified, not intractable, without status migrainosus; I10 Essential (primary) hypertension; E78.00 Pure hypercholesterolemia, unspecified; K21.9 Gastro-esophageal reflux disease without esophagitis; F12.90 Cannabis use, unspecified, uncomplicated; G89.29 Other chronic pain; Z87.19 Personal history of other diseases of the digestive system; Z87.442 Personal history of urinary calculi; Z79.899 Other long term (current) drug therapy; Z90.49 Acquired absence of other specified parts of digestive tract; Z90.710 Acquired absence of both cervix and uterus; Z98.51 Tubal ligation status; Z98.890 Other specified postprocedural states; Z72.89 Other problems related to lifestyle; Z88.8 Allergy status to other drugs, medicaments and biological substances; Z91.048 Other nonmedicinal substance allergy status
CPT/HCPCS: 36415; 80053; 81003; 81025; 83690; 85008; 85025; 96361; 96374; 96375; 99284; J2405; J2930; J7030

== ENCOUNTER 2021-08-29 14:23 | Emergency (ER) | payer MEDICARE, MEDICAID ==
[~2021-08-29] VITALS: Ht 160 cm; Wt 86.4 kg
[~2021-08-29 14:23] MED LIST changes: +PRED10TA23 PO
[2021-08-29 15:22] LABS: BASOPHILS % (AUTO) 0.2 % (0-1); EOSINOPHILS # (AUTO) 0.1 X10'3 (0-0.9); EOSINOPHILS % (AUTO) 0.3 % (0-6); HEMATOCRIT 47.1 % (35.0-45.0); HEMOGLOBIN 16.3 g/dl (12.0-16.0); LYMPHOCYTES # (AUTO) 2.3 X10'3 (1.1-4.8); LYMPHOCYTES % (AUTO) 14.4 % (21-51); MEAN CORPUSCULAR HEMOGLOBIN 33.8 PG (27.0-31.0); MEAN CORPUSCULAR HGB CONC 34.7 g/dL (33.0-36.5); MEAN CORPUSCULAR VOLUME 97.5 FL (78-98); MEAN PLATELET VOLUME 7.5 FL (7.4-10.4); MONOCYTES # (AUTO) 0.6 X10'3 (0-0.9); MONOCYTES % (AUTO) 3.6 % (2-12); NEUTROPHILS # (AUTO) 12.9 X10'3 (1.8-7.7); NEUTROPHILS % (AUTO) 81.5 % (42-75); PLATELET COUNT 250 X10'3 (140-440); RED BLOOD COUNT 4.83 X10'6 (4.20-5.60); RED CELL DISTRIBUTION WIDTH 13.1 % (11.5-14.5); WHITE BLOOD COUNT 15.9 X10'3 (4.5-11.0)
[2021-08-29 15:25] LABS: CLARITY,URINE CLOUDY (Clear); COLOR,URINE YELLOW (Yellow); GLUCOSE, URINE NEGATIVE (Neg); KETONES,URINE NEGATIVE (Neg); LEUKOCYTE ESTERASE ,URINE NEGATIVE (Neg); NITRITES, URINE NEGATIVE (Neg); OCCULT BLOOD,URINE NEGATIVE (Neg); PH,URINE 7.5 (4.8-8.0); PROTEIN,URINE NEGATIVE (Neg); UROBILINOGEN,URINE 0.2 E.U/dL (0.2-1.0)
[2021-08-29 15:26] LABS: URINE HCG NEGATIVE (NEG)
[2021-08-29 15:27] LABS: UA COLLECTION TYPE NON-SPECIFIED
[2021-08-29 15:35] LABS: MUCUS STRANDS FEW /LPF (Neg); SQUAMOUS EPITHELIAL CELL,UR MODERATE /LPF (FEW)
[2021-08-29 15:37] LABS: ALANINE AMINOTRANSFERASE 18 U/L (12-78); ALBUMIN 3.6 G/DL (3.4-5.0); ALBUMIN/GLOBULIN RATIO 0.9 (1.1-1.5); ALKALINE PHOSPHATASE 67 IU/L (46-116); ANION GAP 11 (8-16); ASPARTATE AMINO TRANSFERASE 10 U/L (10-37); BILIRUBIN,TOTAL 0.3 MG/DL (0.1-1.0); BLOOD UREA NITROGEN 13 MG/DL (7-18); BUN/CREATININE RATIO 16.5 (6.6-38.0); CALCIUM 9.2 MG/DL (8.5-10.1); CHLORIDE 105 MMOL/L (99-107); CREATININE 0.79 MG/DL (0.40-0.90); GLUCOSE 100 MG/DL (70-104); LIPASE 66 U/L (73-393); POTASSIUM 4.3 MMOL/L (3.5-5.1); SODIUM 143 MMOL/L (135-145); TOTAL CARBON DIOXIDE 26.9 MMOL/L (24-32); TOTAL PROTEIN 7.5 G/DL (6.4-8.2); eGFR 80 ML/MIN
[2021-08-29 15:38] LABS: BACTERIA,URINE FEW /HPF (Neg)
[2021-08-29 15:39] LABS: RBC,URINE 0-2 /HPF (0-2); TRANSITIONAL EPI CELLS,URINE FEW /HPF; WBC,URINE 0-4 /HPF (0-4)
[2021-08-29 15:40] LABS: AMORPHOUS PHOSPHATES 4+
[2021-08-29] MEDS ORDERED: HYDROcodone/acetaminophen 5mg/325mg tablet PO ONE ×2 (20:20→21:35)
[2021-08-29] MEDS ORDERED: ondansetron 4mg rapidly disintigrating tab PO ONE (20:20)
[2021-08-29] MEDS ORDERED: HYDR-3965 PO (21:41)
[2021-08-29 21:50] VITALS: BP 120/94
== END 2021-08-29 21:51 | disposition home or self-care (01) ==
LOC: ER 14:23
DX: R10.84 Generalized abdominal pain (principal); R50.9 Fever, unspecified; R11.0 Nausea; G43.909 Migraine, unspecified, not intractable, without status migrainosus; E78.00 Pure hypercholesterolemia, unspecified; I10 Essential (primary) hypertension; K21.9 Gastro-esophageal reflux disease without esophagitis; G89.29 Other chronic pain; F41.9 Anxiety disorder, unspecified; F31.9 Bipolar disorder, unspecified; F12.90 Cannabis use, unspecified, uncomplicated; Z87.442 Personal history of urinary calculi; Z90.89 Acquired absence of other organs; Z90.49 Acquired absence of other specified parts of digestive tract; Z90.710 Acquired absence of both cervix and uterus; Z98.890 Other specified postprocedural states; Z98.51 Tubal ligation status; Z72.89 Other problems related to lifestyle; Z88.8 Allergy status to other drugs, medicaments and biological substances; Z88.1 Allergy status to other antibiotic agents; Z79.899 Other long term (current) drug therapy
CPT/HCPCS: 36415; 74176; 80053; 81001; 81025; 83690; 85025; 99284

== ENCOUNTER 2021-10-17 12:12 | Emergency (ER) | payer MEDICARE, MEDICAID ==
[~2021-10-17] VITALS: Ht 160 cm; Wt 86.4 kg
[~2021-10-17 12:12] MED LIST changes: -PRED10TA23 PO
[2021-10-17 12:16] VITALS: BP 116/90
[2021-10-17] MEDS ORDERED: methylPREDNISolone sod succ 125mg/2ml vial IV ONE (13:40)
[2021-10-17] MEDS ORDERED: famotidine 10mg tablet PO SCH (13:40)
[2021-10-17] MEDS ORDERED: famotidine 10mg tablet PO ONE (13:40)
[2021-10-17] MEDS ORDERED: famotidine 20mg tablet PO ONE (13:40)
[2021-10-17] MEDS ORDERED: predniSONE 20 mg tablet PO ONE (14:05)
[2021-10-17] MEDS ORDERED: ketorolac tromethamine 15mg/ml inj. IM ONE (14:10)
[2021-10-17 14:46] LABS: BASOPHILS % (AUTO) 0.5 % (0-1); EOSINOPHILS # (AUTO) 0.1 X10'3 (0-0.9); EOSINOPHILS % (AUTO) 1.3 % (0-6); HEMATOCRIT 43.8 % (35.0-45.0); HEMOGLOBIN 15.5 g/dl (12.0-16.0); LYMPHOCYTES # (AUTO) 2.9 X10'3 (1.1-4.8); LYMPHOCYTES % (AUTO) 30.2 % (21-51); MEAN CORPUSCULAR HEMOGLOBIN 33.9 PG (27.0-31.0); MEAN CORPUSCULAR HGB CONC 35.3 g/dL (33.0-36.5); MEAN PLATELET VOLUME 7.3 FL (7.4-10.4); MONOCYTES # (AUTO) 0.3 X10'3 (0-0.9); MONOCYTES % (AUTO) 3.6 % (2-12); NEUTROPHILS # (AUTO) 6.1 X10'3 (1.8-7.7); NEUTROPHILS % (AUTO) 64.4 % (42-75); PLATELET COUNT 226 X10'3 (140-440); RED BLOOD COUNT 4.56 X10'6 (4.20-5.60); RED CELL DISTRIBUTION WIDTH 12.6 % (11.5-14.5); WHITE BLOOD COUNT 9.5 X10'3 (4.5-11.0)
[2021-10-17 14:55] LABS: ALANINE AMINOTRANSFERASE 23 U/L (12-78); ALBUMIN 3.5 G/DL (3.4-5.0); ALBUMIN/GLOBULIN RATIO 0.9 (1.1-1.5); ALKALINE PHOSPHATASE 85 IU/L (46-116); ANION GAP 8 (8-16); ASPARTATE AMINO TRANSFERASE 13 U/L (10-37); BILIRUBIN,TOTAL 0.4 MG/DL (0.1-1.0); BLOOD UREA NITROGEN 8 MG/DL (7-18); BUN/CREATININE RATIO 12.3 (6.6-38.0); CALCIUM 8.9 MG/DL (8.5-10.1); CHLORIDE 108 MMOL/L (99-107); CREATININE 0.65 MG/DL (0.40-0.90); GLUCOSE 93 MG/DL (70-104); POTASSIUM 4.1 MMOL/L (3.5-5.1); SODIUM 140 MMOL/L (135-145); TOTAL CARBON DIOXIDE 24.3 MMOL/L (24-32); TOTAL PROTEIN 7.3 G/DL (6.4-8.2); eGFR > 90 ML/MIN
[2021-10-17 15:38] LABS: CLARITY,URINE CLEAR (Clear); COLOR,URINE YELLOW (Yellow); GLUCOSE, URINE NEGATIVE (Neg); KETONES,URINE NEGATIVE (Neg); LEUKOCYTE ESTERASE ,URINE NEGATIVE (Neg); NITRITES, URINE NEGATIVE (Neg); OCCULT BLOOD,URINE NEGATIVE (Neg); PROTEIN,URINE NEGATIVE (Neg); UROBILINOGEN,URINE 0.2 E.U/dL (0.2-1.0)
[2021-10-17 15:40] LABS: UA COLLECTION TYPE CLN CATCH MIDSTREAM
== END 2021-10-17 15:45 | disposition left against medical advice (07) ==
LOC: ER 12:13
DX: T78.40XA Allergy, unspecified, initial encounter (principal); R10.11 Right upper quadrant pain; R09.89 Other specified symptoms and signs involving the circulatory and respiratory systems; G43.909 Migraine, unspecified, not intractable, without status migrainosus; E78.00 Pure hypercholesterolemia, unspecified; I10 Essential (primary) hypertension; K21.9 Gastro-esophageal reflux disease without esophagitis; G89.29 Other chronic pain; F41.9 Anxiety disorder, unspecified; F12.90 Cannabis use, unspecified, uncomplicated; Z87.442 Personal history of urinary calculi; Z90.89 Acquired absence of other organs; Z90.49 Acquired absence of other specified parts of digestive tract; Z90.710 Acquired absence of both cervix and uterus; Z98.51 Tubal ligation status; Z72.89 Other problems related to lifestyle; Z88.1 Allergy status to other antibiotic agents; Z88.8 Allergy status to other drugs, medicaments and biological substances; Z79.899 Other long term (current) drug therapy; Y92.89 Other specified places as the place of occurrence of the external cause
CPT/HCPCS: 36415; 80053; 81003; 85025; 96372; 99283; J1885; J7512

== ENCOUNTER 2022-04-10 13:27 | Emergency (ER) | payer MEDICARE, MEDICAID ==
[~2022-04-10] VITALS: Ht 162.6 cm; Wt 85.0 kg
[2022-04-10 13:30] VITALS: BP 115/86
== END 2022-04-10 15:20 | disposition left against medical advice (07) ==
LOC: ER 13:28
DX: R10.9 Unspecified abdominal pain (principal); G43.909 Migraine, unspecified, not intractable, without status migrainosus; E78.00 Pure hypercholesterolemia, unspecified; I10 Essential (primary) hypertension; K21.9 Gastro-esophageal reflux disease without esophagitis; G89.29 Other chronic pain; M54.50 Low back pain, unspecified; F31.9 Bipolar disorder, unspecified; F12.90 Cannabis use, unspecified, uncomplicated; Z88.5 Allergy status to narcotic agent; Z91.09 Other allergy status, other than to drugs and biological substances; Z88.8 Allergy status to other drugs, medicaments and biological substances; Z90.49 Acquired absence of other specified parts of digestive tract; Z98.890 Other specified postprocedural states; Z90.710 Acquired absence of both cervix and uterus; Z98.51 Tubal ligation status
CPT/HCPCS: 99283

== ENCOUNTER 2022-11-15 12:20 | Emergency (ER) | payer MEDICARE, MEDICAID ==
[~2022-11-15] VITALS: Ht 160 cm; Wt 75.0 kg
[2022-11-15 12:27] VITALS: BP 125/87
[2022-11-15] MEDS ORDERED: triamcinolone acetonide 40mg/ml inj IM ONE (15:25)
[2022-11-15] MEDS ORDERED: ciprofloxacin 0.3% 2.5ml ophthalmic solution RIGHTEYE ONE (15:25)
[2022-11-15] MEDS ORDERED: CIPR2.5D14 RIGHTEYE (15:31)
== END 2022-11-15 15:55 | disposition home or self-care (01) ==
LOC: ER 12:21
DX: H00.12 Chalazion right lower eyelid (principal); G43.909 Migraine, unspecified, not intractable, without status migrainosus; E78.00 Pure hypercholesterolemia, unspecified; I10 Essential (primary) hypertension; K21.9 Gastro-esophageal reflux disease without esophagitis; G89.29 Other chronic pain; M54.50 Low back pain, unspecified; F31.9 Bipolar disorder, unspecified; Z88.5 Allergy status to narcotic agent; Z91.09 Other allergy status, other than to drugs and biological substances; Z88.8 Allergy status to other drugs, medicaments and biological substances; Z90.49 Acquired absence of other specified parts of digestive tract; Z98.890 Other specified postprocedural states; Z90.710 Acquired absence of both cervix and uterus
CPT/HCPCS: 96372; 99283; J3301

== ENCOUNTER 2023-03-21 12:12 | Emergency (ER) | payer MEDICARE, MEDICAID ==
[~2023-03-21] VITALS: Ht 160 cm; Wt 67.6 kg
[~2023-03-21 12:12] MED LIST changes: +CIPR2.5D12 RIGHTEYE
[2023-03-21 12:40] VITALS: BP 117/84
[2023-03-21] MEDS ORDERED: HYDROcodone/acetaminophen 10/325mg tab PO ONE (13:25)
[2023-03-21] MEDS ORDERED: LIDOcaine 5% patch TP STA (13:27)
[2023-03-21] MEDS ORDERED: TRAM50TA2 PO (13:43)
== END 2023-03-21 13:55 | disposition home or self-care (01) ==
LOC: ER 12:13
DX: S40.011A Contusion of right shoulder, initial encounter (principal); E78.00 Pure hypercholesterolemia, unspecified; G43.909 Migraine, unspecified, not intractable, without status migrainosus; I10 Essential (primary) hypertension; Z88.5 Allergy status to narcotic agent; Z79.899 Other long term (current) drug therapy; Z88.8 Allergy status to other drugs, medicaments and biological substances; W18.39XA Other fall on same level, initial encounter; Y93.89 Activity, other specified; Y92.89 Other specified places as the place of occurrence of the external cause; Y99.8 Other external cause status
CPT/HCPCS: 73030; 99284

== ENCOUNTER 2023-05-17 12:54 | Emergency (ER) | payer MEDICARE, MEDICAID ==
[~2023-05-17] VITALS: Ht 160 cm; Wt 68.0 kg
[2023-05-17 12:56] VITALS: BP 117/77; PULSE 72; RESP 18; TEMP 97.7; O2SAT 100
[2023-05-17] MEDS ORDERED: OXYC-145 PO (15:35)
[2023-05-17] MEDS ORDERED: oxyCODONE/APAP 5-325mg tablet PO ONE (15:35)
== END 2023-05-17 16:14 | disposition home or self-care (01) ==
LOC: ER 12:55
DX: S32.17XA Type 4 fracture of sacrum, initial encounter for closed fracture (principal); M25.562 Pain in left knee; G43.909 Migraine, unspecified, not intractable, without status migrainosus; E78.00 Pure hypercholesterolemia, unspecified; I10 Essential (primary) hypertension; K21.9 Gastro-esophageal reflux disease without esophagitis; Z91.09 Other allergy status, other than to drugs and biological substances; Z88.8 Allergy status to other drugs, medicaments and biological substances; Z88.5 Allergy status to narcotic agent; Z79.899 Other long term (current) drug therapy; Z90.710 Acquired absence of both cervix and uterus; V89.9XXA Person injured in unspecified vehicle accident, initial encounter; Y93.89 Activity, other specified; Y92.89 Other specified places as the place of occurrence of the external cause; Y99.8 Other external cause status
CPT/HCPCS: 72220; 73564; 99284

== ENCOUNTER 2023-06-27 15:50 | Emergency (ER) | payer MEDICARE, MEDICAID ==
[~2023-06-27] VITALS: Ht 160 cm; Wt 64.8 kg
[~2023-06-27 15:50] MED LIST changes: +OXYC-145 PO
[2023-06-27] MEDS ORDERED: diphenhydrAMINE 50 mg/ml inj IM ONE (19:00)
[2023-06-27] MEDS ORDERED: LORazepam 2 mg/ml vial IM ONE (19:00)
[2023-06-27] MEDS ORDERED: ketorolac trometh inj. 60 MG/2 ML VIAL IM ONE (19:00)
[2023-06-27 19:40] VITALS: BP 138/86; PULSE 64; RESP 16; TEMP 97.8; O2SAT 98
--- NOTE | 2023-06-27 21:53 | NUR ---
VIEWED AND AGREE WITH LVNS ASSESSMENT. PT IN STABLE CONDITION.
== END 2023-06-27 19:44 | disposition home or self-care (01) ==
LOC: ER 15:51
DX: F41.9 Anxiety disorder, unspecified (principal); G43.909 Migraine, unspecified, not intractable, without status migrainosus; E78.00 Pure hypercholesterolemia, unspecified; K21.9 Gastro-esophageal reflux disease without esophagitis; I12.0 Hypertensive chronic kidney disease with stage 5 chronic kidney disease or end stage renal disease; N18.9 Chronic kidney disease, unspecified; F31.9 Bipolar disorder, unspecified; F12.90 Cannabis use, unspecified, uncomplicated; Z91.09 Other allergy status, other than to drugs and biological substances; Z88.8 Allergy status to other drugs, medicaments and biological substances; Z79.899 Other long term (current) drug therapy; Z90.49 Acquired absence of other specified parts of digestive tract; Z98.890 Other specified postprocedural states; Z90.710 Acquired absence of both cervix and uterus; Z98.51 Tubal ligation status
CPT/HCPCS: 96372; 99284; J1200; J1885; J2060

== ENCOUNTER 2023-07-04 23:45 | Inpatient (IN) | payer MEDICARE, MEDICAID ==
[~2023-07-04] VITALS: Ht 160 cm; Wt 70.7 kg
[2023-07-05 00:44] LABS: BASOPHILS % (AUTO) 0.4 % (0-1); EOSINOPHILS # (AUTO) 0.3 X10'3 (0-0.9); EOSINOPHILS % (AUTO) 3.4 % (0-6); HEMATOCRIT 43.8 % (35.0-45.0); HEMOGLOBIN 15.2 g/dl (12.0-16.0); LYMPHOCYTES # (AUTO) 4.1 X10'3 (1.1-4.8); LYMPHOCYTES % (AUTO) 40.2 % (21-51); MEAN CORPUSCULAR HEMOGLOBIN 34.8 PG (27.0-31.0); MEAN CORPUSCULAR HGB CONC 34.8 g/dL (33.0-36.5); MEAN PLATELET VOLUME 7.1 FL (7.4-10.4); MONOCYTES # (AUTO) 0.7 X10'3 (0-0.9); MONOCYTES % (AUTO) 6.5 % (2-12); NEUTROPHILS # (AUTO) 5.1 X10'3 (1.8-7.7); NEUTROPHILS % (AUTO) 49.5 % (42-75); PLATELET COUNT 238 X10'3 (140-440); RED BLOOD COUNT 4.38 X10'6 (4.20-5.60); RED CELL DISTRIBUTION WIDTH 13.2 % (11.5-14.5); WHITE BLOOD COUNT 10.3 X10'3 (4.5-11.0)
[2023-07-05 00:46] LABS: URINE HCG NEGATIVE (NEG)
[2023-07-05] MEDS ORDERED: diphenhydrAMINE 25mg capsule PO ONE ×2 (00:55→03:20)
[2023-07-05] MEDS ORDERED: acetaminophen 325mg tablet PO ONE (00:55)
[2023-07-05] MEDS ORDERED: ketorolac trometh inj. 60 MG/2 ML VIAL IM ONE (00:55)
[2023-07-05] MEDS ORDERED: proCHLORperazine 10mg tablet PO ONE (00:55)
[2023-07-05] MEDS ORDERED: metoclopramide 10mg tablet PO ONE (00:55)
[2023-07-05 00:58] LABS: ANION GAP 6 (8-16); BLOOD UREA NITROGEN 16 MG/DL (7-18); BUN/CREATININE RATIO 23.2 (10.0-20.0); CHLORIDE 105 MMOL/L (99-107); CREATININE 0.69 MG/DL (0.40-0.90); GLUCOSE 83 MG/DL (70-104); POTASSIUM 3.4 MMOL/L (3.5-5.1); SODIUM 142 MMOL/L (135-145); TOTAL CARBON DIOXIDE 30.9 MMOL/L (24-32)
[2023-07-05 00:59] LABS: ALANINE AMINOTRANSFERASE 76 U/L (12-78); ALBUMIN 3.6 G/DL (3.4-5.0); ALBUMIN/GLOBULIN RATIO 0.9 (1.1-1.5); ALKALINE PHOSPHATASE 71 IU/L (46-116); ASPARTATE AMINO TRANSFERASE 37 U/L (10-37); BILIRUBIN,TOTAL 0.4 MG/DL (0.1-1.0); CALCIUM 9.6 MG/DL (8.5-10.1); ETHANOL < 10 MG/DL (<10); TOTAL PROTEIN 7.4 G/DL (6.4-8.2); eCRCL 87 ML/MIN; eGFR > 90 ML/MIN
[2023-07-05 01:00] LABS: URINE AMPHETAMINE SCREEN NEGATIVE (Neg); URINE BARBITUATE SCREEN NEGATIVE (Neg); URINE BENZODIAZEPINES SCREEN NEGATIVE (Neg); URINE CANNABINOID SCREEN POSITIVE (Neg); URINE COCAINE SCREEN NEGATIVE (Neg); URINE METHADONE SCREEN NEGATIVE (Neg); URINE OPIATE SCREEN NEGATIVE (Neg); URINE PHENCYCLIDINE SCREEN NEGATIVE (Neg)
[2023-07-05] MEDS ORDERED: potassium Cl 20 mEq SR tablet PO STA (01:01)
[2023-07-05 01:29] LABS: BILIRUBIN,URINE NEGATIVE (Neg); CLARITY,URINE CLOUDY (Clear); COLOR,URINE YELLOW (Yellow); GLUCOSE, URINE NEGATIVE (Neg); KETONES,URINE NEGATIVE (Neg); LEUKOCYTE ESTERASE ,URINE NEGATIVE (Neg); NITRITES, URINE NEGATIVE (Neg); OCCULT BLOOD,URINE NEGATIVE (Neg); PH,URINE 6.5 (4.8-8.0); PROTEIN,URINE NEGATIVE (Neg); UROBILINOGEN,URINE 0.2 E.U/dL (0.2-1.0)
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
[2023-07-05 01:33] LABS: UA COLLECTION TYPE CLN CATCH MIDSTREAM
[2023-07-05 01:35] LABS: SQUAMOUS EPITHELIAL CELL,UR NONE SEEN /LPF (FEW)
[2023-07-05 01:36] LABS: RBC,URINE NONE SEEN /HPF (0-2); WBC,URINE NONE SEEN /HPF (0-4)
[2023-07-05 01:37] LABS: CAL OXALATE CRYSTALS 4+ /HPF (NEGATIVE)
[2023-07-05 01:42] LABS: AMORPHOUS PHOSPHATES 3+; BACTERIA,URINE FEW /HPF (Neg)
--- NOTE | 2023-07-05 02:51 | NUR ---
Patient is sleeping quietly. In view from nurses station. No distress.
[2023-07-05] MEDS ORDERED: traZODone 50mg tablet PO ONE (03:20)
[2023-07-05] MEDS ORDERED: LORazepam 1 MG tablet PO ONE ×2 (03:20→15:10)
--- NOTE | 2023-07-05 03:21 | NUR ---
Note tramaine in [facility] - 07/05/23 at 333 by MARGARETTE Patient remains awake and quite restless. He describes tactile hallucinations, up and down on his stomach. Dr. Bermeo consulted. Orders for Ativan 1 mg PO, Benadryl 50 mg PO, and Trazadone 50 mg PO. Addendum: 07/05/23 at 333 by MARGARETTE Amendment tramaine in [facility] - 07/05/23 at 333 by MARGARETTE Wrong patient.
--- NOTE | 2023-07-05 05:19 | NUR ---
[facility] packet faxed
[2023-07-05] MEDS: ondansetron 4mg rapidly disintigrating tab PO PRN (07:51)
[2023-07-05] MEDS: nicotine 21mg patch - 24 hr TD SCH (07:51)
--- NOTE | 2023-07-05 08:30 | NUR ---
Pt. is awake and eating breakfast at bedside.
[2023-07-05] MEDS ORDERED: CETI10TA14 PO (08:39)
[2023-07-05] MEDS ORDERED: LAMO200T10 PO (08:39)
[2023-07-05] MEDS ORDERED: LIT300C PO (08:39)
[2023-07-05] MEDS ORDERED: TRAZ-256 PO (08:39)
[2023-07-05] MEDS ORDERED: ESTR0.5T5 PO (08:39)
[2023-07-05] MEDS ORDERED: DESV25TA2 PO (08:39)
[2023-07-05] MEDS ORDERED: OMEP40CA21 PO (08:39)
[2023-07-05] MEDS ORDERED: PROP20TA6 PO (08:39)
[2023-07-05] MEDS ORDERED: ALBU2.5V10 (08:39)
[2023-07-05] MEDS ORDERED: CLON0.5T4 PO (08:39)
[2023-07-05] MEDS ORDERED: RISP2TAB85 PO (08:39)
[2023-07-05] MEDS: clonazePAM 0.5mg tablet PO PRN (09:45)
[2023-07-05] MEDS: lamoTRIgine 100mg tablet PO SCH (09:47)
[2023-07-05] MEDS: cetirizine 10mg tablet PO SCH (09:47)
[2023-07-05] MEDS: propranolol 40mg tablet PO PRN ×2 (09:49→12:19)
[2023-07-05] MEDS: pantoprazole 40mg Tablet.DR PO SCH ×2 (09:49→20:35)
--- NOTE | 2023-07-05 10:30 | NUR ---
Pt. cooperative with 1:1 assessment. Pt. denies SI/HI, AH. However, pt. reports seeing visions of messages at times that tell her things that she should be doing.
[2023-07-05] MEDS: DESVENLAFAXINE SUCCINATE 25 MG PO SCH (12:29)
--- NOTE | 2023-07-05 12:30 | NUR ---
Pt. asleep in bed on her left side. Respirations 16, even and unlabored.
--- NOTE | 2023-07-05 14:30 | NUR ---
Pt. asleep in bed in supine position. Respirations 18, even and unlabored.
--- NOTE | 2023-07-05 15:20 | NUR ---
Pt. c/o severe anxiety and received now dose of Ativan 2mg po.
--- NOTE | 2023-07-05 17:30 | NUR ---
Pt. lying in bed c/o right lower abdominal pain rated 8/10. Pt. states that she has been experiencing this pain for a month and has had an X-ray and CT scan that was negative. RN offered pt. Tylenol PRN but pt. states, "it doesn't work".
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
[2023-07-05] MEDS: lithium carbonate 300mg SR tablet (LithoBID) PO SCH (20:35)
[2023-07-05] MEDS: risperiDONE 2mg tablet PO SCH (20:35)
[2023-07-05] MEDS: traZODone 50mg tablet PO SCH (20:35)
[2023-07-05] MEDS: ibuprofen 200mg tablet PO PRN (20:35)
--- NOTE | 2023-07-05 20:45 | NUR ---
Client took PM meds including 600 mg Ibuprofen Tab PO. Affect and mood are depressed. Resp even and unlabored.
--- NOTE | 2023-07-05 22:30 | NUR ---
Sleeping on left side. Resp even and unlabored at 16/min.
--- NOTE | 2023-07-06 02:07 | NUR ---
Ambulated to restroom and returned to bed. Fell asleep, resp even and unlabored.
[2023-07-06] MEDS: ondansetron 4mg rapidly disintigrating tab PO PRN (03:00)
--- NOTE | 2023-07-06 03:02 | NUR ---
Given Zofran for nausea. Nicotine patch removed.
[2023-07-06] MEDS: clonazePAM 0.5mg tablet PO PRN ×2 (04:55→22:51)
[2023-07-06] MEDS: ibuprofen 200mg tablet PO PRN ×3 (04:55→21:00)
--- NOTE | 2023-07-06 04:56 | NUR ---
Ambulated to restroom at 04:45. Given 600 mg Ibuprofen Tab PO for shoulder pain. 0.5 mg Klonopin Tab PO for anxiety. Had a warm beverage. Sat quietly on bed.
--- NOTE | 2023-07-06 06:48 | NUR ---
Patient was up and walking when RN first arrived. Patient appears to be sleeping on her left side. Respirations nonlabored. Continue with the plan of care of placement to psych facility.
--- NOTE | 2023-07-06 08:36 | NUR ---
Patient eating breakfast. No distress observed. Continue with the plan of care.
[2023-07-06] MEDS: cyanocobalamin 500mcg tablet PO SCH (08:39)
[2023-07-06] MEDS: lamoTRIgine 100mg tablet PO SCH (08:40)
[2023-07-06] MEDS: cetirizine 10mg tablet PO SCH (08:40)
[2023-07-06] MEDS: cholecalciferol (vitamin D3) 1,000 unit (25mcg) tablet PO SCH (08:40)
[2023-07-06] MEDS: DESVENLAFAXINE SUCCINATE 25 MG PO SCH (08:40)
[2023-07-06] MEDS: pantoprazole 40mg Tablet.DR PO SCH ×2 (08:40→20:29)
[2023-07-06] MEDS: nicotine 21mg patch - 24 hr TD SCH (08:41)
--- NOTE | 2023-07-06 09:26 | NUR ---
Patient asked for her brush from her duffle bag. Tech went to the back and could not find a duffle bag. Patient states her mother was supposed to bring it last night. Patient got on the phone with mother and was angry. When patient got off the phone she was crying. Continue to monitor.
--- NOTE | 2023-07-06 10:04 | NUR ---
Patient calm and watching T.V. No distress observed. Continue to monitor.
--- NOTE | 2023-07-06 11:05 | NUR ---
Patient requesting pain medication and anti-anxiety med. RN gave anti-anxiety med but pain med was too soon. No distress observed. Continue to monitor.
[2023-07-06] MEDS: propranolol 40mg tablet PO PRN (12:06)
--- NOTE | 2023-07-06 12:11 | NUR ---
Patient eating lunch and watching T.V. No distress observed. Continue to monitor.
--- NOTE | 2023-07-06 13:40 | NUR ---
Patient came up to RN and stated the propranolol gave her an anxiety attack and she needs something else for anxiety. RN was setting up for an I & D procedure for another patient. Patient did not appear to be in any anxiety, RN advised patient that she would have to wait until this other task was complete. Continue to monitor.
--- NOTE | 2023-07-06 13:50 | NUR ---
RN asked Dr. Cantrell for some medication for the patient but she said Dr Mustafa who is coming on would have to do it since she was about to do the procedure.
[2023-07-06] MEDS: hydrOXYzine 25 MG tablet PO PRN (15:00)
--- NOTE | 2023-07-06 15:35 | NUR ---
Patient came up to RN and stated her lips feel a little tingly there is no swelling to her lips. RN stated we would continue to observe to see if she is allergic to Atarax. Continue to monitor.
--- NOTE | 2023-07-06 17:08 | NUR ---
Patient asked RN to switch rooms since the irving's voice sounds like the voices in her head and it's triggering her. RN moved patient to bed 24.
--- NOTE | 2023-07-06 18:49 | NUR ---
Pt awake and asking for anxiety medication. Explained to pt that it is too soon. Pt then asked for a Motrin for 8/10 pain in her shoulder. Explained it was too soon for Motrin also. Pt accepted explanation. Pt then went to with stable gait.
[2023-07-06] MEDS: lithium carbonate 300mg SR tablet (LithoBID) PO SCH (20:29)
[2023-07-06] MEDS: traZODone 50mg tablet PO SCH (20:29)
[2023-07-06] MEDS: risperiDONE 2mg tablet PO SCH (20:29)
--- NOTE | 2023-07-06 20:30 | NUR ---
Pt awake. HS medication compliant. Denies SI/HI/AVH. Pt watching TV.
--- NOTE | 2023-07-06 21:07 | NUR ---
Motrin 600mg given for righty shoulder pain. Pt continues to watch TV and ask for anxiety medications. Pt does not appear anxious.
--- NOTE | 2023-07-06 21:36 | NUR ---
Pt being escorted to 326 by Renato, PCT and security. All beliongings with pt along with pharmacy slip for POM.
[2023-07-06 21:45] VITALS: BP 138/82; PULSE 71; RESP 18; TEMP 97.7; O2SAT 97
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
[2023-07-06 22:44] VITALS: RESP 18; O2SAT 97
[2023-07-06] MEDS ORDERED: mag hydrox/Alum hydrox/simeth 30ml oral suspension PO PRN (23:00)
[2023-07-06] MEDS ORDERED: loperamide 2mg capsule PO PRN (23:00)
[2023-07-06] MEDS ORDERED: acetaminophen 325mg tablet PO PRN (23:00)
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
[2023-07-07 07:00] VITALS: BP 109/77; PULSE 66; RESP 16; TEMP 98.1; O2SAT 98
[2023-07-07] MEDS: naproxen 500mg tablet PO SCH ×2 (08:30→19:58)
[2023-07-07] MEDS: lamoTRIgine 100mg tablet PO SCH (08:41)
[2023-07-07] MEDS: cyanocobalamin 500mcg tablet PO SCH (08:41)
[2023-07-07] MEDS: nicotine 21mg patch - 24 hr TD SCH (08:41)
[2023-07-07] MEDS: cetirizine 10mg tablet PO SCH (08:42)
[2023-07-07] MEDS: ibuprofen 200mg tablet PO PRN ×2 (08:42→19:06)
[2023-07-07] MEDS: cholecalciferol (vitamin D3) 1,000 unit (25mcg) tablet PO SCH (08:42)
[2023-07-07] MEDS: pantoprazole 40mg Tablet.DR PO SCH ×2 (08:42→19:06)
[2023-07-07] MEDS: DESVENLAFAXINE SUCCINATE 25 MG PO SCH (09:19)
[2023-07-07] MEDS: hydrOXYzine 25 MG tablet PO PRN ×2 (09:21→19:06)
[2023-07-07 11:36] LABS: HEMOGLOBIN A1C 4.7 % (4.5-6.2)
[2023-07-07 11:40] LABS: CHOL/HDL RATIO 2.9 (0.00-4.99); CHOLESTEROL 189 MG/DL (0-200); HDL CHOLESTEROL 66 MG/DL (35-60); LDL CHOLESTEROL 101 MG/DL (50-100); TRIGLYCERIDES 85 MG/DL (20-135)
[2023-07-07] MEDS: acetaminophen 325mg tablet PO PRN ×2 (14:39→19:05)
[2023-07-07] MEDS: clonazePAM 0.5mg tablet PO PRN (15:58)
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
--- NOTE | 2023-07-07 18:54 | NUR ---
Called resident physician Dr. Castaneda re: kidney pain. Patient has history of kidney stones and is reporting pain. RN instructed patient to encourage fluids and plans to administer po pain medication. Dr. Castaneda states she'll be coming to see viviane soon.
[2023-07-07 19:55] VITALS: BP 118/79; PULSE 65; RESP 16; TEMP 97.4; O2SAT 100
[2023-07-07] MEDS: tamsulosin 0.4mg capsule PO SCH (19:57)
[2023-07-07] MEDS: lithium carbonate 300mg SR tablet (LithoBID) PO SCH (19:57)
[2023-07-07] MEDS: risperiDONE 2mg tablet PO SCH ×2 (19:58→20:02)
[2023-07-07] MEDS: traZODone 50mg tablet PO SCH (20:00)
[2023-07-07] MEDS: magnesium hydroxide 30ml (MOM) UD suspension PO PRN (20:04)
[2023-07-08] MEDS: acetaminophen 325mg tablet PO PRN ×2 (04:25→11:42)
[2023-07-08] MEDS: ibuprofen 200mg tablet PO PRN (04:25)
[2023-07-08] MEDS: hydrOXYzine 25 MG tablet PO PRN ×2 (04:25→19:55)
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
[2023-07-08 07:00] VITALS: RESP 16; O2SAT 100
[2023-07-08] MEDS: pantoprazole 40mg Tablet.DR PO SCH ×2 (07:51→08:00)
[2023-07-08] MEDS: naproxen 500mg tablet PO SCH ×2 (07:52→17:43)
[2023-07-08] MEDS: cetirizine 10mg tablet PO SCH (07:52)
[2023-07-08] MEDS: ondansetron 4mg rapidly disintigrating tab PO PRN (07:52)
[2023-07-08] MEDS: cyanocobalamin 500mcg tablet PO SCH (07:52)
[2023-07-08] MEDS: lamoTRIgine 100mg tablet PO SCH (07:52)
[2023-07-08] MEDS: cholecalciferol (vitamin D3) 1,000 unit (25mcg) tablet PO SCH (07:53)
[2023-07-08] MEDS: nicotine 21mg patch - 24 hr TD SCH (07:59)
[2023-07-08 08:00] VITALS: BP 115/83; PULSE 61; RESP 16; TEMP 96.9; O2SAT 100
[2023-07-08] MEDS: DESVENLAFAXINE SUCCINATE 25 MG PO SCH (08:01)
[2023-07-08] MEDS ORDERED: naproxen 500mg tablet PO SCH (08:30)
[2023-07-08] MEDS: clonazePAM 0.5mg tablet PO PRN (08:55)
[2023-07-08] MEDS ORDERED: DESVENLAFAXINE SUCCINATE 25 MG PO SCH (09:45)
[2023-07-08] MEDS: tizanidine 4mg tablet PO PRN ×2 (13:26→19:49)
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
[2023-07-08] MEDS: tamsulosin 0.4mg capsule PO SCH (19:49)
[2023-07-08] MEDS: lithium carbonate 300mg SR tablet (LithoBID) PO SCH (19:49)
[2023-07-08] MEDS: traZODone 50mg tablet PO SCH (19:49)
[2023-07-08] MEDS: LIDOcaine 5% patch TP SCH (19:50)
[2023-07-08 20:00] VITALS: BP 113/71; PULSE 77; RESP 16; TEMP 98.6; O2SAT 98
[2023-07-08] MEDS ORDERED: docusate sodium 100mg/10ml UD cup PO SCH (20:00)
[2023-07-08] MEDS: risperiDONE 2mg tablet PO SCH ×2 (20:44→20:47)
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
[2023-07-09] MEDS: clonazePAM 0.5mg tablet PO PRN (04:11)
--- NOTE | 2023-07-09 04:12 | NUR ---
Sleeping Note: Pt woke up at around 0400 requesting shower. She then states she needs something for anxiety but can't take atarax because she is allergic to it. Pt given her PRN daily PO order of klonopin.
[2023-07-09] MEDS: cholecalciferol (vitamin D3) 1,000 unit (25mcg) tablet PO SCH (07:29)
[2023-07-09] MEDS: lamoTRIgine 100mg tablet PO SCH (07:29)
[2023-07-09 07:30] VITALS: RESP 16; O2SAT 100
[2023-07-09] MEDS: cyanocobalamin 500mcg tablet PO SCH (07:30)
[2023-07-09] MEDS: cetirizine 10mg tablet PO SCH (07:30)
[2023-07-09] MEDS: pantoprazole 40mg Tablet.DR PO SCH (07:30)
[2023-07-09] MEDS: nicotine 21mg patch - 24 hr TD SCH (07:33)
[2023-07-09 08:10] VITALS: BP 136/76; PULSE 69; RESP 16; TEMP 97.6; O2SAT 100
[2023-07-09] MEDS: naproxen 500mg tablet PO SCH ×2 (08:10→18:04)
[2023-07-09] MEDS: DESVENLAFAXINE SUCCINATE 25 MG PO SCH (08:48)
[2023-07-09] MEDS: magnesium hydroxide 30ml (MOM) UD suspension PO PRN (12:54)
[2023-07-09] MEDS ORDERED: SUMAtriptan 25 MG tablet PO ONE (15:30)
[2023-07-09] MEDS: LORazepam 0.5 MG tablet PO PRN (15:50)
[2023-07-09] MEDS: ondansetron 4mg rapidly disintigrating tab PO PRN (15:50)
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
[2023-07-09] MEDS: tizanidine 4mg tablet PO PRN (18:08)
[2023-07-09 19:30] VITALS: BP 88/43; PULSE 65; RESP 18; TEMP 98.1; O2SAT 99
[2023-07-09] MEDS: LIDOcaine 5% patch TP SCH (20:44)
[2023-07-09] MEDS: docusate sod 100mg capsule PO PRN (20:45)
[2023-07-09] MEDS: traZODone 50mg tablet PO SCH (20:45)
[2023-07-09] MEDS: tamsulosin 0.4mg capsule PO SCH (20:45)
[2023-07-09] MEDS: lithium carbonate 300mg SR tablet (LithoBID) PO SCH (20:46)
[2023-07-10] MEDS: LORazepam 0.5 MG tablet PO PRN ×3 (02:23→17:06)
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
[2023-07-10 07:30] VITALS: BP 100/80; PULSE 81; RESP 16; TEMP 99; O2SAT 97
[2023-07-10] MEDS: DESVENLAFAXINE SUCCINATE 25 MG PO SCH (07:38)
[2023-07-10] MEDS: lamoTRIgine 100mg tablet PO SCH (07:38)
[2023-07-10] MEDS: pantoprazole 40mg Tablet.DR PO SCH (07:39)
[2023-07-10] MEDS: cetirizine 10mg tablet PO SCH (07:39)
[2023-07-10] MEDS: cyanocobalamin 500mcg tablet PO SCH (07:39)
[2023-07-10] MEDS: cholecalciferol (vitamin D3) 1,000 unit (25mcg) tablet PO SCH (07:40)
[2023-07-10] MEDS: tizanidine 4mg tablet PO PRN ×2 (07:48→15:49)
[2023-07-10] MEDS: naproxen 500mg tablet PO SCH ×2 (07:48→17:07)
[2023-07-10] MEDS: nicotine 14mg patch - 24hr TD SCH (07:51)
[2023-07-10] MEDS: LIDOcaine 5% patch TP SCH (08:08)
[2023-07-10] MEDS: docusate sod 100mg capsule PO PRN (11:01)
[2023-07-10] MEDS: magnesium hydroxide 30ml (MOM) UD suspension PO PRN (11:01)
[2023-07-10] MEDS: ibuprofen 200mg tablet PO PRN (15:49)
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
[2023-07-10 19:19] VITALS: BP 108/80; PULSE 65; RESP 16; TEMP 97.6; O2SAT 100
[2023-07-10] MEDS: tamsulosin 0.4mg capsule PO SCH (20:18)
[2023-07-10] MEDS: traZODone 50mg tablet PO SCH (20:18)
[2023-07-10] MEDS: lithium carbonate 300mg SR tablet (LithoBID) PO SCH (20:21)
[2023-07-11] MEDS: LORazepam 0.5 MG tablet PO PRN (02:45)
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
[2023-07-11 07:00] VITALS: RESP 14; O2SAT 95
[2023-07-11 08:00] VITALS: BP 117/76; PULSE 65; RESP 14; TEMP 97.6; O2SAT 95
[2023-07-11] MEDS: cetirizine 10mg tablet PO SCH (08:30)
[2023-07-11] MEDS: pantoprazole 40mg Tablet.DR PO SCH (08:30)
[2023-07-11] MEDS: DESVENLAFAXINE SUCCINATE 25 MG PO SCH (08:30)
[2023-07-11] MEDS: lamoTRIgine 100mg tablet PO SCH (08:31)
[2023-07-11] MEDS: cholecalciferol (vitamin D3) 1,000 unit (25mcg) tablet PO SCH (08:31)
[2023-07-11] MEDS: naproxen 500mg tablet PO SCH ×2 (08:31→17:52)
[2023-07-11] MEDS: cyanocobalamin 500mcg tablet PO SCH (08:31)
[2023-07-11] MEDS: nicotine 14mg patch - 24hr TD SCH (08:32)
[2023-07-11] MEDS: LIDOcaine 5% patch TP SCH (08:33)
[2023-07-11] MEDS: magnesium hydroxide 30ml (MOM) UD suspension PO PRN (08:47)
[2023-07-11] MEDS: docusate sod 100mg capsule PO PRN ×2 (08:47→20:03)
--- NOTE | 2023-07-11 12:05 | NUR ---
Initial: Pt admit for PTSD, bipolar disorder, and psychosis with hallucinations. Currently on a sodium restricted diet and overall eating well with average 72% PO intake of meals meeting 88% estimated energy needs and 100% estimated protein needs. Pt appears to be participating in snacks which are offered TID. Recommend liberalizing to regular diet as no indication for sodium restricted diet identified at this time. Pt documented as constipated with small BM 07/10. Pt has been receiving PRN MoM and Colace per EMR. No nutrition intervention implemented at this time. Will continue to follow and make recommendations as appropriate. Recommendations: 1) Liberalize to regular diet 2) Consider routine bowel care; continue to utilize PRN bowel care 3) Weekly scaled weights Addendum: 07/11/23 at [address] Amended: Links added.
[2023-07-11] MEDS: LORazepam 1 MG tablet PO PRN ×2 (12:53→20:03)
[2023-07-11] MEDS: ibuprofen 200mg tablet PO PRN (12:54)
[2023-07-11] MEDS: tizanidine 4mg tablet PO PRN (12:56)
[2023-07-11] MEDS ORDERED: ondansetron 4mg rapidly disintigrating tab PO PRN (14:15)
[2023-07-11] MEDS ORDERED: ketorolac tromethamine 15mg/ml inj. IM ONE (14:15)
[2023-07-11] MEDS ORDERED: SUMAtriptan 25 MG tablet PO ONE (14:15)
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
[2023-07-11 19:00] VITALS: BP 119/76; PULSE 61; RESP 16; TEMP 98; O2SAT 100
[2023-07-11] MEDS: lithium carbonate 300mg SR tablet (LithoBID) PO SCH (20:04)
[2023-07-11] MEDS: traZODone 50mg tablet PO SCH (20:04)
[2023-07-11] MEDS: prazosin 1mg capsule PO SCH (20:05)
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
[2023-07-12] MEDS: LORazepam 0.5 MG tablet PO PRN ×3 (05:32→13:33)
[2023-07-12 07:30] VITALS: RESP 16; O2SAT 95
[2023-07-12 08:00] VITALS: BP 107/85; PULSE 74; RESP 16; TEMP 98.5; O2SAT 95
[2023-07-12] MEDS: cholecalciferol (vitamin D3) 1,000 unit (25mcg) tablet PO SCH (08:03)
[2023-07-12] MEDS: pantoprazole 40mg Tablet.DR PO SCH (08:03)
[2023-07-12] MEDS: cetirizine 10mg tablet PO SCH (08:03)
[2023-07-12] MEDS: cyanocobalamin 500mcg tablet PO SCH (08:04)
[2023-07-12] MEDS: DESVENLAFAXINE SUCCINATE 25 MG PO SCH (08:04)
[2023-07-12] MEDS: nicotine 14mg patch - 24hr TD SCH (08:05)
[2023-07-12] MEDS: LIDOcaine 5% patch TP SCH (08:10)
[2023-07-12] MEDS: naproxen 500mg tablet PO SCH ×2 (08:30→17:34)
[2023-07-12] MEDS: lamoTRIgine 100mg tablet PO SCH (09:22)
[2023-07-12] MEDS ORDERED: LORazepam 0.5 MG tablet PO ONE (14:40)
[2023-07-12] MEDS: docusate sod 100mg capsule PO PRN ×2 (15:01→19:57)
[2023-07-12] MEDS: magnesium hydroxide 30ml (MOM) UD suspension PO PRN (15:01)
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
[2023-07-12 19:15] VITALS: RESP 16; O2SAT 97
[2023-07-12 19:17] VITALS: BP 109/74; PULSE 69; RESP 16; TEMP 97.9; O2SAT 97
[2023-07-12] MEDS: prazosin 1mg capsule PO SCH (19:57)
[2023-07-12] MEDS: LORazepam 1 MG tablet PO PRN (19:57)
[2023-07-12] MEDS: traZODone 50mg tablet PO SCH (19:57)
[2023-07-12] MEDS: tizanidine 4mg tablet PO PRN (19:58)
[2023-07-12] MEDS: lithium carbonate 300mg SR tablet (LithoBID) PO SCH (19:58)
[2023-07-12] MEDS: acetaminophen 325mg tablet PO PRN (19:59)
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
[2023-07-13] MEDS: LORazepam 0.5 MG tablet PO PRN ×2 (03:40→11:26)
[2023-07-13] MEDS: ibuprofen 200mg tablet PO PRN (03:42)
[2023-07-13] MEDS: pantoprazole 40mg Tablet.DR PO SCH (06:51)
[2023-07-13 07:00] VITALS: RESP 15; O2SAT 98
[2023-07-13] MEDS: DESVENLAFAXINE SUCCINATE 25 MG PO SCH (07:36)
[2023-07-13] MEDS: lamoTRIgine 100mg tablet PO SCH (07:37)
[2023-07-13] MEDS: cetirizine 10mg tablet PO SCH (07:37)
[2023-07-13] MEDS: cyanocobalamin 500mcg tablet PO SCH (07:37)
[2023-07-13] MEDS: cholecalciferol (vitamin D3) 1,000 unit (25mcg) tablet PO SCH (07:37)
[2023-07-13] MEDS: LIDOcaine 5% patch TP SCH (07:40)
[2023-07-13] MEDS: nicotine 14mg patch - 24hr TD SCH (07:41)
[2023-07-13 08:00] VITALS: BP 130/82; PULSE 61; RESP 14; TEMP 98.6; O2SAT 100
[2023-07-13] MEDS: naproxen 500mg tablet PO SCH (08:46)
[2023-07-13] MEDS: acetaminophen 325mg tablet PO PRN (11:26)
[2023-07-13] MEDS ORDERED: LAMO100T PO (12:32)
[2023-07-13] MEDS ORDERED: LIT300C PO (12:32)
[2023-07-13] MEDS ORDERED: NICO-631 TD (12:32)
[2023-07-13] MEDS ORDERED: PRAZ1CAP5 PO (12:32)
[2023-07-13] MEDS ORDERED: BREX0.5T PO (12:32)
[2023-07-13] MEDS ORDERED: TRAZ-251 PO (12:32)
[2023-07-13] MEDS ORDERED: CYAN500T71 PO (12:32)
[2023-07-13] MEDS ORDERED: CHOL100046 PO (12:32)
[2023-07-13] MEDS ORDERED: DESV25TA2 PO (12:32)
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
== END 2023-07-13 13:40 | disposition home or self-care (01) | DRG 885 ==
LOC: ER 23:46 → ADULT MH 07-06 17:08
PROVIDERS: ADMIT Psychiatry & Neurology Psychiatry; ATTEND Psychiatry & Neurology Psychiatry
DX: F31.30 Bipolar disorder, current episode depressed, mild or moderate severity, unspecified (principal); R45.851 Suicidal ideations; F17.210 Nicotine dependence, cigarettes, uncomplicated; F29 Unspecified psychosis not due to a substance or known physiological condition; E78.00 Pure hypercholesterolemia, unspecified; F43.10 Post-traumatic stress disorder, unspecified; G89.29 Other chronic pain; K21.9 Gastro-esophageal reflux disease without esophagitis; M54.9 Dorsalgia, unspecified; G43.809 Other migraine, not intractable, without status migrainosus; E87.6 Hypokalemia; F41.9 Anxiety disorder, unspecified; F15.21 Other stimulant dependence, in remission; Z20.822 Contact with and (suspected) exposure to COVID-19; I10 Essential (primary) hypertension; M79.7 Fibromyalgia; Z88.5 Allergy status to narcotic agent; Z88.8 Allergy status to other drugs, medicaments and biological substances; Z90.710 Acquired absence of both cervix and uterus; Z90.49 Acquired absence of other specified parts of digestive tract; Z79.899 Other long term (current) drug therapy
CPT/HCPCS: 36415; 70551; 74176; 80053; 80061; 80305; 80320; 81001; 81025; 83036; 85025; 87081; 87811; 96372; 99285; J1885; Q0163; Q0164; Q0177

== ENCOUNTER 2023-07-17 19:04 | Emergency (ER) | payer MEDICARE, MEDICAID ==
[~2023-07-17] VITALS: Ht 160 cm; Wt 68.2 kg
[~2023-07-17 19:04] MED LIST changes: -ALBU18HF2 INH; +ALBU2.5V10; -ASEN10TA SL; -ASEN10TA3 SL; +BREX0.5T PO; -CARB200T PO; -CETI-90 PO; +CETI10TA14 PO; +CHOL100046 PO; -CHOL200013 PO; -CIPR2.5D12 RIGHTEYE; +CLON0.5T4 PO; +CYAN500T71 PO; +DESV25TA2 PO; -DICY10CA88 PO; -DIPH25CA83 PO; -EST1T PO; +ESTR0.5T5 PO; -HYDR-3686 PO; +LAMO100T PO; -LAMO200T2 PO; +LIT300C PO; -LOP25T PO; +NICO-631 TD; +OMEP40CA21 PO; -ONDA4TAB6 PO; -OXYB5TAB16 PO; -OXYC-145 PO; -PENT100C8 PO; +PRAZ1CAP5 PO; -PRED50TA PO; +PROP20TA6 PO; -TOP100T PO; +TRAZ-251 PO; -TRAZ-256 PO
[2023-07-17 19:39] VITALS: BP 122/88; PULSE 64; TEMP 98.1; O2SAT 98
[2023-07-17 19:47] LABS: BASOPHILS % (AUTO) 0.3 % (0-1); EOSINOPHILS # (AUTO) 0.2 X10'3 (0-0.9); EOSINOPHILS % (AUTO) 2.6 % (0-6); HEMOGLOBIN 13.8 g/dl (12.0-16.0); LYMPHOCYTES # (AUTO) 3.8 X10'3 (1.1-4.8); LYMPHOCYTES % (AUTO) 40.6 % (21-51); MEAN CORPUSCULAR HEMOGLOBIN 34.4 PG (27.0-31.0); MEAN CORPUSCULAR HGB CONC 34.6 g/dL (33.0-36.5); MEAN CORPUSCULAR VOLUME 99.6 FL (78-98); MEAN PLATELET VOLUME 7.7 FL (7.4-10.4); MONOCYTES # (AUTO) 0.6 X10'3 (0-0.9); MONOCYTES % (AUTO) 6.3 % (2-12); NEUTROPHILS # (AUTO) 4.6 X10'3 (1.8-7.7); NEUTROPHILS % (AUTO) 50.2 % (42-75); PLATELET COUNT 233 X10'3 (140-440); RED BLOOD COUNT 4.01 X10'6 (4.20-5.60); RED CELL DISTRIBUTION WIDTH 12.6 % (11.5-14.5); WHITE BLOOD COUNT 9.3 X10'3 (4.5-11.0)
[2023-07-17] MEDS ORDERED: ketorolac trometh. 30mg/ml inj. IM ONE (19:50)
[2023-07-17 20:06] LABS: ALANINE AMINOTRANSFERASE 63 U/L (12-78); ALBUMIN 3.5 G/DL (3.4-5.0); ALKALINE PHOSPHATASE 68 IU/L (46-116); ANION GAP 7 (8-16); ASPARTATE AMINO TRANSFERASE 32 U/L (10-37); BILIRUBIN,TOTAL 0.2 MG/DL (0.1-1.0); BLOOD UREA NITROGEN 11 MG/DL (7-18); BUN/CREATININE RATIO 16.7 (10.0-20.0); CALCIUM 9.5 MG/DL (8.5-10.1); CHLORIDE 105 MMOL/L (99-107); CREATININE 0.66 MG/DL (0.40-0.90); GLUCOSE 82 MG/DL (70-104); POTASSIUM 4.2 MMOL/L (3.5-5.1); SODIUM 140 MMOL/L (135-145); TOTAL CARBON DIOXIDE 27.9 MMOL/L (24-32); TOTAL PROTEIN 6.9 G/DL (6.4-8.2); eCRCL 91 ML/MIN; eGFR > 90 ML/MIN
[2023-07-17 20:07] LABS: PRO BRAIN NATRIURETIC PEPTIDE 38 PG/ML (0-125)
[2023-07-17 20:11] VITALS: RESP 20
[2023-07-17] MEDS ORDERED: IBUP-1985 PO (20:25)
== END 2023-07-17 20:32 | disposition home or self-care (01) ==
LOC: ER 19:05
DX: R07.89 Other chest pain (principal); G43.909 Migraine, unspecified, not intractable, without status migrainosus; E78.00 Pure hypercholesterolemia, unspecified; K21.9 Gastro-esophageal reflux disease without esophagitis; I12.0 Hypertensive chronic kidney disease with stage 5 chronic kidney disease or end stage renal disease; F15.90 Other stimulant use, unspecified, uncomplicated; F12.90 Cannabis use, unspecified, uncomplicated; Z88.8 Allergy status to other drugs, medicaments and biological substances; Z79.899 Other long term (current) drug therapy; Z98.890 Other specified postprocedural states; Z90.49 Acquired absence of other specified parts of digestive tract; Z90.710 Acquired absence of both cervix and uterus; Z98.51 Tubal ligation status
CPT/HCPCS: 36415; 71045; 80053; 83880; 84484; 85025; 93005; 96372; 99285; J1885

== ENCOUNTER 2023-07-19 11:52 | Emergency (ER) | payer MEDICARE, MEDICAID ==
[~2023-07-19] VITALS: Ht 160 cm; Wt 71.4 kg
[~2023-07-19 11:52] MED LIST changes: +IBUP-1985 PO
[2023-07-19 12:12] VITALS: BP 168/100; PULSE 55; RESP 18; TEMP 98; O2SAT 98
--- NOTE | 2023-07-19 13:45 | NUR ---
PT GIVEN DC INSTRUCTIONS
[2023-07-20] MEDS ORDERED: LIT300C PO (20:24)
[2023-07-20] MEDS ORDERED: TRAZ150T78 PO (20:24)
[2023-07-20] MEDS ORDERED: PRAZ1CAP5 PO (20:24)
[2023-07-20] MEDS ORDERED: BREX0.5T PO (20:25)
[2023-07-20] MEDS ORDERED: Cyanocobalamin PO (20:32)
[2023-07-20] MEDS ORDERED: CHOL-35 PO (20:32)
[2023-07-20] MEDS ORDERED: DESV50TA PO (20:41)
[2023-07-20] MEDS ORDERED: Ibuprofen PO (20:41)
[2023-07-20] MEDS ORDERED: LAMO100T65 PO (20:43)
== END 2023-07-19 12:33 ==
LOC: ER 11:53
DX: R51.9 Headache, unspecified (principal); R07.89 Other chest pain; E78.00 Pure hypercholesterolemia, unspecified; I10 Essential (primary) hypertension; K21.9 Gastro-esophageal reflux disease without esophagitis; F31.9 Bipolar disorder, unspecified; F32.A Depression, unspecified; Z79.899 Other long term (current) drug therapy; Z88.1 Allergy status to other antibiotic agents
CPT/HCPCS: 99282

== ENCOUNTER 2023-07-20 16:38 | Inpatient (IN) | payer MEDICARE, MEDICAID ==
[~2023-07-20] VITALS: Ht 160 cm; Wt 75.3 kg
[2023-07-20 17:55] LABS: BASOPHILS % (AUTO) 0.3 % (0-1); EOSINOPHILS # (AUTO) 0.3 X10'3 (0-0.9); EOSINOPHILS % (AUTO) 2.7 % (0-6); HEMATOCRIT 42.8 % (35.0-45.0); HEMOGLOBIN 14.7 g/dl (12.0-16.0); LYMPHOCYTES # (AUTO) 3.6 X10'3 (1.1-4.8); LYMPHOCYTES % (AUTO) 36.4 % (21-51); MEAN CORPUSCULAR HEMOGLOBIN 34.3 PG (27.0-31.0); MEAN CORPUSCULAR HGB CONC 34.3 g/dL (33.0-36.5); MEAN CORPUSCULAR VOLUME 100.1 FL (78-98); MEAN PLATELET VOLUME 7.1 FL (7.4-10.4); MONOCYTES # (AUTO) 0.5 X10'3 (0-0.9); MONOCYTES % (AUTO) 5.3 % (2-12); NEUTROPHILS # (AUTO) 5.5 X10'3 (1.8-7.7); NEUTROPHILS % (AUTO) 55.3 % (42-75); PLATELET COUNT 268 X10'3 (140-440); RED BLOOD COUNT 4.28 X10'6 (4.20-5.60); RED CELL DISTRIBUTION WIDTH 12.8 % (11.5-14.5)
[2023-07-20 18:10] LABS: ALANINE AMINOTRANSFERASE 62 U/L (12-78); ALBUMIN 3.7 G/DL (3.4-5.0); ALKALINE PHOSPHATASE 75 IU/L (46-116); ANION GAP 6 (8-16); ASPARTATE AMINO TRANSFERASE 29 U/L (10-37); BILIRUBIN,TOTAL 0.4 MG/DL (0.1-1.0); BLOOD UREA NITROGEN 8 MG/DL (7-18); BUN/CREATININE RATIO 9.9 (10.0-20.0); CALCIUM 9.3 MG/DL (8.5-10.1); CHLORIDE 106 MMOL/L (99-107); CREATININE 0.81 MG/DL (0.40-0.90); ETHANOL < 10 MG/DL (<10); GLUCOSE 89 MG/DL (70-104); POTASSIUM 3.9 MMOL/L (3.5-5.1); SODIUM 140 MMOL/L (135-145); TOTAL CARBON DIOXIDE 27.7 MMOL/L (24-32); TOTAL PROTEIN 7.3 G/DL (6.4-8.2); eCRCL 74 ML/MIN; eGFR 77 ML/MIN
[2023-07-20 20:13] LABS: URINE HCG NEGATIVE (NEG)
[2023-07-20] MEDS ORDERED: TRAZ150T78 PO (20:24)
[2023-07-20] MEDS ORDERED: PRAZ1CAP5 PO (20:24)
[2023-07-20] MEDS ORDERED: LIT300C PO (20:24)
[2023-07-20] MEDS ORDERED: BREX0.5T PO (20:25)
[2023-07-20 20:26] LABS: URINE AMPHETAMINE SCREEN NEGATIVE (Neg); URINE BARBITUATE SCREEN NEGATIVE (Neg); URINE BENZODIAZEPINES SCREEN NEGATIVE (Neg); URINE CANNABINOID SCREEN POSITIVE (Neg); URINE COCAINE SCREEN NEGATIVE (Neg); URINE METHADONE SCREEN NEGATIVE (Neg); URINE OPIATE SCREEN NEGATIVE (Neg); URINE PHENCYCLIDINE SCREEN NEGATIVE (Neg)
[2023-07-20] MEDS ORDERED: CHOL-35 PO (20:32)
[2023-07-20] MEDS ORDERED: Cyanocobalamin PO (20:32)
[2023-07-20] MEDS ORDERED: Ibuprofen PO (20:41)
[2023-07-20] MEDS ORDERED: DESV50TA PO (20:41)
[2023-07-20] MEDS ORDERED: LAMO100T65 PO (20:43)
[2023-07-20] MEDS ORDERED: clonazePAM 0.5mg tablet PO PRN (21:45)
[2023-07-21] MEDS: ibuprofen 200mg tablet PO PRN ×3 (01:08→19:27)
[2023-07-21] MEDS: traZODone 150mg tablet PO PRN ×2 (01:09→20:29)
[2023-07-21] MEDS ORDERED: DESV50TA20 PO (02:29)
[2023-07-21 06:34] LABS: BILIRUBIN,URINE NEGATIVE (Neg); CLARITY,URINE CLEAR (Clear); COLOR,URINE YELLOW (Yellow); GLUCOSE, URINE NEGATIVE (Neg); KETONES,URINE NEGATIVE (Neg); LEUKOCYTE ESTERASE ,URINE NEGATIVE (Neg); NITRITES, URINE NEGATIVE (Neg); OCCULT BLOOD,URINE NEGATIVE (Neg); PROTEIN,URINE NEGATIVE (Neg); UROBILINOGEN,URINE 0.2 E.U/dL (0.2-1.0)
[2023-07-21 06:43] LABS: UA COLLECTION TYPE CLN CATCH MIDSTREAM
[2023-07-21 07:37] LABS: THYROID STIMULATING HORMONE 2.96 ulU/ml (0.34-4.50)
[2023-07-21] MEDS: DESVENLAFAXINE SUCCINATE PO SCH (08:00)
[2023-07-21] MEDS: pantoprazole 40mg Tablet.DR PO SCH ×2 (08:43→20:29)
[2023-07-21] MEDS: cetirizine 10mg tablet PO SCH (08:44)
[2023-07-21] MEDS: lamoTRIgine 100mg tablet PO SCH ×2 (08:44→20:29)
[2023-07-21] MEDS: cholecalciferol (vitamin D3) 1,000 unit (25mcg) tablet PO SCH (08:44)
[2023-07-21] MEDS: cyanocobalamin 500mcg tablet PO SCH (08:44)
[2023-07-21] MEDS: propranolol 10mg tablet PO PRN (10:10)
[2023-07-21] MEDS: nicotine 14mg patch - 24hr TD SCH (10:12)
[2023-07-21 14:54] VITALS: BP 114/75; PULSE 64; RESP 18; TEMP 98.4; O2SAT 97
[2023-07-21 16:08] VITALS: RESP 18; O2SAT 97
[2023-07-21] MEDS ORDERED: SUMAtriptan 25 MG tablet PO ONE (17:30)
[2023-07-21] MEDS: LORazepam 0.5 MG tablet PO PRN (18:11)
[2023-07-21 20:00] VITALS: BP 118/61; PULSE 62; RESP 16; TEMP 97.2; O2SAT 97
[2023-07-21] MEDS: prazosin 1mg capsule PO SCH (20:29)
[2023-07-21] MEDS: lithium carbonate 150mg capsule PO SCH (20:30)
[2023-07-21] MEDS: brexpiprazole 0.25mg tablet PO SCH (21:00)
[2023-07-22] MEDS: ibuprofen 200mg tablet PO PRN (05:35)
[2023-07-22] MEDS: LORazepam 0.5 MG tablet PO PRN ×2 (05:35→19:30)
[2023-07-22 07:00] VITALS: RESP 12; O2SAT 97
[2023-07-22] MEDS: DESVENLAFAXINE SUCCINATE PO SCH (07:49)
[2023-07-22] MEDS: lamoTRIgine 100mg tablet PO SCH ×2 (07:50→20:16)
[2023-07-22] MEDS: cholecalciferol (vitamin D3) 1,000 unit (25mcg) tablet PO SCH (07:50)
[2023-07-22] MEDS: cyanocobalamin 500mcg tablet PO SCH (07:50)
[2023-07-22] MEDS: cetirizine 10mg tablet PO SCH (07:50)
[2023-07-22] MEDS: pantoprazole 40mg Tablet.DR PO SCH ×2 (07:50→20:16)
[2023-07-22] MEDS: nicotine 14mg patch - 24hr TD SCH (07:53)
[2023-07-22 08:00] VITALS: BP 132/78; PULSE 62; RESP 12; TEMP 97.7; O2SAT 97
[2023-07-22] MEDS ORDERED: FLU VACC QS2023-24(6MOS UP)/PF 60 MCG/0.5 ML SYRINGE IM ONE (09:30)
[2023-07-22] MEDS ORDERED: pneumococcal 23-VAL P-sac vacc 25 mcg/0.5ml vial IMVAC ONE (10:00)
[2023-07-22] MEDS ORDERED: ondansetron/PF 4mg/2ml inj IM ONE (14:25)
[2023-07-22] MEDS ORDERED: metoclopramide 5 mg/ml inj IM ONE (14:25)
[2023-07-22] MEDS ORDERED: ketorolac tromethamine 15mg/ml inj. IM ONE (14:25)
[2023-07-22] MEDS ORDERED: LORazepam 2 mg/ml vial IM ONE (14:25)
[2023-07-22] MEDS ORDERED: mag hydrox/Alum hydrox/simeth 30ml oral suspension PO ONE (19:40)
[2023-07-22 20:00] VITALS: BP 91/47; PULSE 73; RESP 16; TEMP 98; O2SAT 98
[2023-07-22] MEDS: traZODone 150mg tablet PO PRN (20:16)
[2023-07-22] MEDS: lithium carbonate 150mg capsule PO SCH (20:17)
[2023-07-22] MEDS: brexpiprazole 0.25mg tablet PO SCH (20:17)
[2023-07-22] MEDS: prazosin 1mg capsule PO SCH (20:18)
[2023-07-23] MEDS: LORazepam 0.5 MG tablet PO PRN ×3 (05:58→19:23)
[2023-07-23] MEDS: ibuprofen 200mg tablet PO PRN (05:59)
[2023-07-23 07:00] VITALS: RESP 16; O2SAT 99
[2023-07-23 08:00] VITALS: BP 111/76; PULSE 59; RESP 16; TEMP 98.3; O2SAT 99
[2023-07-23] MEDS: nicotine 14mg patch - 24hr TD SCH (09:05)
[2023-07-23] MEDS: lamoTRIgine 100mg tablet PO SCH ×2 (09:05→20:35)
[2023-07-23] MEDS: DESVENLAFAXINE SUCCINATE PO SCH (09:06)
[2023-07-23] MEDS: cetirizine 10mg tablet PO SCH (09:06)
[2023-07-23] MEDS: cholecalciferol (vitamin D3) 1,000 unit (25mcg) tablet PO SCH (09:06)
[2023-07-23] MEDS: pantoprazole 40mg Tablet.DR PO SCH ×2 (09:06→20:35)
[2023-07-23] MEDS: cyanocobalamin 500mcg tablet PO SCH (09:06)
[2023-07-23] MEDS ORDERED: LORazepam 1 MG tablet PO ONE (12:55)
[2023-07-23 18:32] LABS: HBSAG SCREEN Negative (Negative); HEP B CORE AB, IGM Negative (Negative); HEP B CORE AB, TOT Negative (Negative)
[2023-07-23 19:00] VITALS: RESP 16; O2SAT 98
[2023-07-23 20:00] VITALS: BP 104/65; PULSE 65; RESP 16; TEMP 98.5; O2SAT 98
[2023-07-23] MEDS: lithium carbonate 150mg capsule PO SCH (20:35)
[2023-07-23] MEDS: prazosin 1mg capsule PO SCH (20:35)
[2023-07-24] MEDS: LORazepam 0.5 MG tablet PO PRN ×3 (05:23→21:08)
[2023-07-24 07:00] VITALS: RESP 18; O2SAT 99
[2023-07-24 08:00] VITALS: BP 111/69; PULSE 68; RESP 16; TEMP 98.5; O2SAT 99
[2023-07-24] MEDS: cyanocobalamin 500mcg tablet PO SCH (08:12)
[2023-07-24] MEDS: cetirizine 10mg tablet PO SCH (08:12)
[2023-07-24] MEDS: pantoprazole 40mg Tablet.DR PO SCH ×2 (08:12→21:04)
[2023-07-24] MEDS: cholecalciferol (vitamin D3) 1,000 unit (25mcg) tablet PO SCH (08:12)
[2023-07-24] MEDS: lamoTRIgine 100mg tablet PO SCH ×2 (08:12→20:57)
[2023-07-24] MEDS: ibuprofen 200mg tablet PO PRN (08:13)
[2023-07-24] MEDS: nicotine 14mg patch - 24hr TD SCH (08:14)
[2023-07-24] MEDS ORDERED: LORazepam 2 mg/ml vial IM STA (09:53)
[2023-07-24 12:52] LABS: FOLATE SERUM(FOLIC) 16.1 ng/mL (>3.0)
[2023-07-24 19:00] VITALS: RESP 18; O2SAT 98
[2023-07-24 20:00] VITALS: BP 127/83; PULSE 65; RESP 14; TEMP 98.3; O2SAT 98
[2023-07-24] MEDS: lithium carbonate 150mg capsule PO SCH (20:56)
[2023-07-24] MEDS: prazosin 1mg capsule PO SCH (20:57)
[2023-07-25 07:00] VITALS: RESP 16; O2SAT 98
[2023-07-25] MEDS: cetirizine 10mg tablet PO SCH (07:29)
[2023-07-25] MEDS: pantoprazole 40mg Tablet.DR PO SCH ×2 (07:29→20:31)
[2023-07-25] MEDS: cholecalciferol (vitamin D3) 1,000 unit (25mcg) tablet PO SCH (07:30)
[2023-07-25] MEDS: cyanocobalamin 500mcg tablet PO SCH (07:30)
[2023-07-25] MEDS: lamoTRIgine 100mg tablet PO SCH ×2 (07:30→20:27)
[2023-07-25] MEDS: nicotine 14mg patch - 24hr TD SCH (07:31)
[2023-07-25 08:00] VITALS: BP 120/85; PULSE 72; RESP 16; TEMP 98.2; O2SAT 98
[2023-07-25] MEDS: SUMAtriptan 25 MG tablet PO PRN (10:09)
[2023-07-25] MEDS: LORazepam 0.5 MG tablet PO PRN ×2 (13:59→20:32)
[2023-07-25] MEDS: propranolol 10mg tablet PO PRN (14:37)
[2023-07-25] MEDS: ibuprofen 200mg tablet PO PRN (14:40)
[2023-07-25 19:00] VITALS: RESP 19; O2SAT 99
[2023-07-25 20:00] VITALS: BP 120/85; PULSE 72; RESP 16; TEMP 97.1; O2SAT 99
[2023-07-25] MEDS: lithium carbonate 150mg capsule PO SCH (20:14)
[2023-07-25] MEDS: traZODone 150mg tablet PO PRN (20:24)
[2023-07-25] MEDS: prazosin 1mg capsule PO SCH (20:46)
[2023-07-26 07:00] VITALS: RESP 16; O2SAT 97
[2023-07-26] MEDS: cyanocobalamin 500mcg tablet PO SCH (07:26)
[2023-07-26] MEDS: cetirizine 10mg tablet PO SCH (07:26)
[2023-07-26] MEDS: cholecalciferol (vitamin D3) 1,000 unit (25mcg) tablet PO SCH (07:26)
[2023-07-26] MEDS: pantoprazole 40mg Tablet.DR PO SCH ×2 (07:26→20:06)
[2023-07-26] MEDS: LORazepam 0.5 MG tablet PO PRN ×2 (07:26→15:34)
[2023-07-26] MEDS: lamoTRIgine 100mg tablet PO SCH ×2 (07:26→20:07)
[2023-07-26] MEDS: ibuprofen 200mg tablet PO PRN ×2 (07:27→20:07)
[2023-07-26] MEDS: nicotine 14mg patch - 24hr TD SCH (07:30)
[2023-07-26 08:00] VITALS: BP 113/71; PULSE 65; RESP 16; TEMP 96.9; O2SAT 97
[2023-07-26] MEDS: DESVENLAFAXINE SUCCINATE PO SCH (08:02)
[2023-07-26 10:54] VITALS: BP 118/83; PULSE 84
[2023-07-26] MEDS: SUMAtriptan 25 MG tablet PO PRN (11:12)
[2023-07-26] MEDS: propranolol 10mg tablet PO PRN (11:12)
[2023-07-26 19:00] VITALS: RESP 18; O2SAT 100
[2023-07-26 19:23] VITALS: BP 118/78; PULSE 63; RESP 18; TEMP 96.8; O2SAT 100
[2023-07-26] MEDS: lithium carbonate 150mg capsule PO SCH (20:05)
[2023-07-26] MEDS: traZODone 150mg tablet PO PRN (20:06)
[2023-07-26] MEDS: prazosin 1mg capsule PO SCH (20:06)
[2023-07-26] MEDS: aripiprazole 5mg tablet PO SCH (20:06)
[2023-07-27] MEDS: LORazepam 0.5 MG tablet PO PRN ×3 (04:52→18:58)
[2023-07-27 07:00] VITALS: RESP 14; O2SAT 96
[2023-07-27] MEDS: pantoprazole 40mg Tablet.DR PO SCH ×2 (07:14→20:19)
[2023-07-27] MEDS: cetirizine 10mg tablet PO SCH (07:14)
[2023-07-27] MEDS: cholecalciferol (vitamin D3) 1,000 unit (25mcg) tablet PO SCH (07:14)
[2023-07-27] MEDS: cyanocobalamin 500mcg tablet PO SCH (07:14)
[2023-07-27] MEDS: lamoTRIgine 100mg tablet PO SCH ×2 (07:15→20:20)
[2023-07-27] MEDS: ibuprofen 200mg tablet PO PRN ×2 (07:15→18:59)
[2023-07-27] MEDS: DESVENLAFAXINE SUCCINATE PO SCH (07:15)
[2023-07-27] MEDS: nicotine 14mg patch - 24hr TD SCH (07:17)
[2023-07-27 08:00] VITALS: BP 110/76; PULSE 66; RESP 14; TEMP 97.8; O2SAT 96
[2023-07-27] MEDS ORDERED: mag hydrox/Alum hydrox/simeth 30ml oral suspension PO PRN (13:40)
[2023-07-27] MEDS ORDERED: loperamide 2mg capsule PO PRN (13:40)
[2023-07-27] MEDS ORDERED: magnesium hydroxide 30ml (MOM) UD suspension PO PRN (13:40)
[2023-07-27] MEDS ORDERED: acetaminophen 325mg tablet PO PRN (13:40)
[2023-07-27 16:27] VITALS: BP 127/80; PULSE 80
[2023-07-27] MEDS: propranolol 10mg tablet PO PRN (16:30)
[2023-07-27 19:00] VITALS: RESP 16; O2SAT 99
[2023-07-27 20:00] VITALS: BP 114/76; PULSE 69; RESP 16; TEMP 97.8; O2SAT 98
[2023-07-27] MEDS: prazosin 1mg capsule PO SCH (20:20)
[2023-07-27] MEDS: lithium carbonate 150mg capsule PO SCH (20:20)
[2023-07-27] MEDS: aripiprazole 5mg tablet PO SCH (20:20)
[2023-07-27] MEDS: traZODone 150mg tablet PO PRN (21:50)
[2023-07-28] MEDS: ibuprofen 200mg tablet PO PRN (06:18)
[2023-07-28] MEDS: LORazepam 0.5 MG tablet PO PRN ×4 (06:18→21:54)
[2023-07-28 07:30] VITALS: RESP 14; O2SAT 97
[2023-07-28] MEDS: cetirizine 10mg tablet PO SCH (07:36)
[2023-07-28] MEDS: cholecalciferol (vitamin D3) 1,000 unit (25mcg) tablet PO SCH (07:36)
[2023-07-28] MEDS: lamoTRIgine 100mg tablet PO SCH ×2 (07:36→20:11)
[2023-07-28] MEDS: DESVENLAFAXINE SUCCINATE PO SCH (07:36)
[2023-07-28] MEDS: pantoprazole 40mg Tablet.DR PO SCH ×2 (07:36→20:12)
[2023-07-28] MEDS: cyanocobalamin 500mcg tablet PO SCH (07:36)
[2023-07-28 08:00] VITALS: BP 122/85; PULSE 60; RESP 14; TEMP 97.4; O2SAT 97
[2023-07-28] MEDS: nicotine 14mg patch - 24hr TD SCH (08:10)
[2023-07-28 09:46] LABS: CHOL/HDL RATIO 2.7 (0.00-4.99); CHOLESTEROL 184 MG/DL (0-200); HDL CHOLESTEROL 67 MG/DL (35-60); LDL CHOLESTEROL 96 MG/DL (50-100); TRIGLYCERIDES 97 MG/DL (20-135)
[2023-07-28] MEDS: acetaminophen 325mg tablet PO PRN (12:15)
[2023-07-28] MEDS: propranolol 10mg tablet PO PRN ×2 (14:21→18:43)
[2023-07-28] MEDS ORDERED: iohexol 300mg/ml 100ml inj. ONE (15:30)
[2023-07-28 19:47] VITALS: BP 108/64; PULSE 65; RESP 18; TEMP 97.9; O2SAT 98
[2023-07-28 19:48] VITALS: RESP 16; O2SAT 99
[2023-07-28] MEDS: lithium carbonate 150mg capsule PO SCH (20:10)
[2023-07-28] MEDS: aripiprazole 5mg tablet PO SCH (20:11)
[2023-07-28] MEDS: traZODone 150mg tablet PO PRN (20:12)
[2023-07-28] MEDS: prazosin 1mg capsule PO SCH (20:20)
[2023-07-29] MEDS: ibuprofen 200mg tablet PO PRN ×2 (05:28→15:34)
[2023-07-29] MEDS: LORazepam 0.5 MG tablet PO PRN ×2 (05:28→11:09)
[2023-07-29 07:00] VITALS: RESP 16; O2SAT 99
[2023-07-29 08:00] VITALS: BP 138/80; PULSE 60; RESP 16; TEMP 97.5; O2SAT 99
[2023-07-29] MEDS: DESVENLAFAXINE SUCCINATE PO SCH (08:51)
[2023-07-29] MEDS: lamoTRIgine 100mg tablet PO SCH (08:51)
[2023-07-29] MEDS: cyanocobalamin 500mcg tablet PO SCH (08:51)
[2023-07-29] MEDS: cholecalciferol (vitamin D3) 1,000 unit (25mcg) tablet PO SCH (08:51)
[2023-07-29] MEDS: pantoprazole 40mg Tablet.DR PO SCH (08:51)
[2023-07-29] MEDS: cetirizine 10mg tablet PO SCH (08:51)
[2023-07-29] MEDS: nicotine 14mg patch - 24hr TD SCH (08:53)
[2023-07-29] MEDS: acetaminophen 325mg tablet PO PRN (08:57)
[2023-07-29] MEDS ORDERED: LAMO100T PO (14:58)
[2023-07-29] MEDS ORDERED: SUMA50TA17 PO (14:58)
[2023-07-29] MEDS ORDERED: ALBU6.7H14 INH (14:58)
[2023-07-29] MEDS ORDERED: IBUP-1985 PO (14:58)
[2023-07-29] MEDS ORDERED: TRAZ150T78 PO (14:58)
[2023-07-29] MEDS ORDERED: ARIP10TA57 PO (14:58)
[2023-07-29] MEDS ORDERED: ATI1T PO (14:58)
[2023-07-29] MEDS ORDERED: DESV50TA20 PO (14:58)
[2023-07-29] MEDS ORDERED: PRAZ2CAP2 PO (14:58)
== END 2023-07-29 17:02 | disposition home or self-care (01) | DRG 885 ==
LOC: ER 16:39 → ED HOLD 07-21 12:00 → ADULT MH 07-21 14:56
PROVIDERS: ADMIT Psychiatry & Neurology Psychiatry; ATTEND Psychiatry & Neurology Psychiatry
PROC: GZHZZZZ Group Psychotherapy (ICD-10-PCS; principal; 2023-07-24)
DX: F31.30 Bipolar disorder, current episode depressed, mild or moderate severity, unspecified (principal); R45.851 Suicidal ideations; F17.210 Nicotine dependence, cigarettes, uncomplicated; F43.10 Post-traumatic stress disorder, unspecified; I10 Essential (primary) hypertension; K21.9 Gastro-esophageal reflux disease without esophagitis; M54.9 Dorsalgia, unspecified; J45.909 Unspecified asthma, uncomplicated; M79.7 Fibromyalgia; Z20.822 Contact with and (suspected) exposure to COVID-19; G43.909 Migraine, unspecified, not intractable, without status migrainosus; E78.00 Pure hypercholesterolemia, unspecified; D75.89 Other specified diseases of blood and blood-forming organs; K76.0 Fatty (change of) liver, not elsewhere classified; G89.29 Other chronic pain; F41.9 Anxiety disorder, unspecified; Z79.899 Other long term (current) drug therapy; Z88.5 Allergy status to narcotic agent; Z88.8 Allergy status to other drugs, medicaments and biological substances; Z91.09 Other allergy status, other than to drugs and biological substances; Z90.710 Acquired absence of both cervix and uterus; Z87.442 Personal history of urinary calculi; Z90.49 Acquired absence of other specified parts of digestive tract; Z98.51 Tubal ligation status; Z80.1 Family history of malignant neoplasm of trachea, bronchus and lung; Z80.49 Family history of malignant neoplasm of other genital organs
CPT/HCPCS: 36415; 73221; 74177; 76700; 80053; 80061; 80305; 80320; 81003; 81025; 82607; 82746; 84443; 85025; 86704; 86705; 87081; 87340; 87811; 90686; 90732; 99285; A6250; J1885; J2060; J2405; J2765; J3490; Q9967

== ENCOUNTER 2023-07-31 12:28 | Emergency (ER) | payer MEDICARE, MEDICAID ==
[~2023-07-31] VITALS: Ht 160 cm; Wt 86.0 kg
[~2023-07-31 12:28] MED LIST changes: -ALBU2.5V10; +ALBU6.7H14 INH; +ARIP10TA57 PO; +ATI1T PO; -BREX0.5T PO; +CHOL-35 PO; -CHOL100046 PO; -CYAN500T71 PO; +Cyanocobalamin PO; -DESV25TA2 PO; +DESV50TA20 PO; -NICO-631 TD; -PRAZ1CAP5 PO; +PRAZ2CAP2 PO; +SUMA50TA17 PO; -TRAZ-251 PO; +TRAZ150T78 PO
[2023-07-31 12:36] VITALS: TEMP 98.6
[2023-07-31 13:09] LABS: BASOPHILS # (AUTO) 0.1 X10'3 (0-0.2); BASOPHILS % (AUTO) 0.7 % (0-1); EOSINOPHILS # (AUTO) 0.1 X10'3 (0-0.9); EOSINOPHILS % (AUTO) 2.1 % (0-6); HEMATOCRIT 37.1 % (35.0-45.0); HEMOGLOBIN 12.8 g/dl (12.0-16.0); LYMPHOCYTES # (AUTO) 2.5 X10'3 (1.1-4.8); LYMPHOCYTES % (AUTO) 35.4 % (21-51); MEAN CORPUSCULAR HEMOGLOBIN 34.6 PG (27.0-31.0); MEAN CORPUSCULAR HGB CONC 34.5 g/dL (33.0-36.5); MEAN CORPUSCULAR VOLUME 100.4 FL (78-98); MEAN PLATELET VOLUME 7.9 FL (7.4-10.4); MONOCYTES # (AUTO) 0.4 X10'3 (0-0.9); MONOCYTES % (AUTO) 6.4 % (2-12); NEUTROPHILS # (AUTO) 3.9 X10'3 (1.8-7.7); NEUTROPHILS % (AUTO) 55.4 % (42-75); PLATELET COUNT 193 X10'3 (140-440); RED CELL DISTRIBUTION WIDTH 12.8 % (11.5-14.5)
[2023-07-31 13:21] LABS: ALANINE AMINOTRANSFERASE 39 U/L (12-78); ALBUMIN 3.1 G/DL (3.4-5.0); ALBUMIN/GLOBULIN RATIO 1.1 (1.1-1.5); ALKALINE PHOSPHATASE 61 IU/L (46-116); ANION GAP 2 (8-16); ASPARTATE AMINO TRANSFERASE 24 U/L (10-37); BILIRUBIN,TOTAL 0.2 MG/DL (0.1-1.0); BLOOD UREA NITROGEN 12 MG/DL (7-18); BUN/CREATININE RATIO 21.1 (10.0-20.0); CALCIUM 8.8 MG/DL (8.5-10.1); CHLORIDE 109 MMOL/L (99-107); CREATININE 0.57 MG/DL (0.40-0.90); GLUCOSE 88 MG/DL (70-104); POTASSIUM 4.2 MMOL/L (3.5-5.1); SODIUM 140 MMOL/L (135-145); TOTAL CARBON DIOXIDE 29.3 MMOL/L (24-32); eCRCL 105 ML/MIN; eGFR > 90 ML/MIN
[2023-07-31 13:29] LABS: PRO BRAIN NATRIURETIC PEPTIDE 59 PG/ML (0-125)
--- NOTE | 2023-07-31 13:42 | NUR ---
CSS[facility] - Patient seen last week in [facility] for SI, medications now stable and SI no longer present.
[2023-07-31] MEDS ORDERED: nitroGLYCERIN 1gm ointment UD TP ONE (13:50)
[2023-07-31] MEDS ORDERED: LORazepam 1 MG tablet PO ONE (15:35)
[2023-07-31 17:04] VITALS: BP 130/96; PULSE 61; RESP 16; O2SAT 0
== END 2023-07-31 16:59 | disposition home or self-care (01) ==
LOC: ER 12:29
DX: F41.9 Anxiety disorder, unspecified (principal); R07.9 Chest pain, unspecified; G43.909 Migraine, unspecified, not intractable, without status migrainosus; Z88.8 Allergy status to other drugs, medicaments and biological substances; Z79.899 Other long term (current) drug therapy
CPT/HCPCS: 36415; 71045; 80053; 83880; 84484; 85025; 93005; 99285

== ENCOUNTER 2023-10-07 16:10 | Emergency (ER) | payer MEDICARE, MEDICAID ==
[~2023-10-07] VITALS: Ht 160 cm; Wt 86.4 kg
[~2023-10-07 16:10] MED LIST changes: -ESTR0.5T5 PO; +[UNRECOGNIZED DRUG - CODE] PO
[2023-10-07 16:12] VITALS: TEMP 97.4
[2023-10-07] MEDS ORDERED: BUTA-245 PO (16:19)
[2023-10-07] MEDS: dexamethasone sod phosphate 10mg/ml inj IM STA (16:21)
[2023-10-07] MEDS: ketorolac trometh inj. 60 MG/2 ML VIAL IM ONE (16:25)
[2023-10-07] MEDS: diphenhydrAMINE 50 mg/ml inj IM ONE (16:25)
[2023-10-07] MEDS: metoclopramide 5 mg/ml inj IM ONE (16:25)
[2023-10-07 17:35] VITALS: BP 135/100; PULSE 77; RESP 16; O2SAT 98
== END 2023-10-07 20:09 | disposition home or self-care (01) ==
LOC: ER 16:11
DX: G43.909 Migraine, unspecified, not intractable, without status migrainosus (principal); F12.90 Cannabis use, unspecified, uncomplicated; F15.90 Other stimulant use, unspecified, uncomplicated; E78.00 Pure hypercholesterolemia, unspecified; K21.9 Gastro-esophageal reflux disease without esophagitis; I10 Essential (primary) hypertension; Z88.8 Allergy status to other drugs, medicaments and biological substances; Z91.09 Other allergy status, other than to drugs and biological substances; Z88.5 Allergy status to narcotic agent; Z79.899 Other long term (current) drug therapy; Z79.1 Long term (current) use of non-steroidal anti-inflammatories (NSAID); Z90.49 Acquired absence of other specified parts of digestive tract; Z90.710 Acquired absence of both cervix and uterus; Z98.51 Tubal ligation status
CPT/HCPCS: 96372; 99284; J1100; J1200; J1885; J2765

== ENCOUNTER → 2023-10-13 | Emergency (ER) | payer MEDICARE, MEDICAID ==
[~2023-10-13] VITALS: Ht 165.1 cm; Wt 86.4 kg
[~2023-10-13] MED LIST changes: +BUTA-245 PO
[2023-10-13 13:25] VITALS: BP 124/90; PULSE 73; TEMP 97.6; O2SAT 97
[2023-10-13] MEDS: metoclopramide 5 mg/ml inj IM ONE (15:56)
[2023-10-13 15:57] VITALS: RESP 16
[2023-10-13] MEDS: ketorolac trometh inj. 60 MG/2 ML VIAL IM ONE (15:57)
[2023-10-13] MEDS: diphenhydrAMINE 50 mg/ml inj IM ONE (15:57)
== END | disposition home or self-care (01) ==
LOC: ER 12:51
DX: G43.909 Migraine, unspecified, not intractable, without status migrainosus (principal); E78.00 Pure hypercholesterolemia, unspecified; I10 Essential (primary) hypertension; K21.9 Gastro-esophageal reflux disease without esophagitis; F31.9 Bipolar disorder, unspecified; F12.90 Cannabis use, unspecified, uncomplicated; F15.90 Other stimulant use, unspecified, uncomplicated; Z88.8 Allergy status to other drugs, medicaments and biological substances; Z91.09 Other allergy status, other than to drugs and biological substances; Z79.899 Other long term (current) drug therapy; Z79.1 Long term (current) use of non-steroidal anti-inflammatories (NSAID); Z98.890 Other specified postprocedural states; Z90.710 Acquired absence of both cervix and uterus; Z98.51 Tubal ligation status
CPT/HCPCS: 96372; 99284; J1200; J1885; J2765

== ENCOUNTER 2023-11-20 12:30 | Emergency (ER) | payer MEDICARE, MEDICAID ==
[~2023-11-20] VITALS: Ht 160 cm; Wt 95.9 kg
[2023-11-20 13:10] VITALS: BP 125/91; PULSE 82; TEMP 97.4; O2SAT 98
[2023-11-20 15:02] VITALS: RESP 18
[2023-11-20] MEDS: ketorolac trometh. 30mg/ml inj. IM ONE (15:02)
== END 2023-11-20 15:20 | disposition home or self-care (01) ==
LOC: ER 12:31
DX: S93.601A Unspecified sprain of right foot, initial encounter (principal); G43.909 Migraine, unspecified, not intractable, without status migrainosus; E78.00 Pure hypercholesterolemia, unspecified; I10 Essential (primary) hypertension; F12.90 Cannabis use, unspecified, uncomplicated; F15.90 Other stimulant use, unspecified, uncomplicated; Z88.8 Allergy status to other drugs, medicaments and biological substances; Z91.09 Other allergy status, other than to drugs and biological substances; Z79.899 Other long term (current) drug therapy; Z79.1 Long term (current) use of non-steroidal anti-inflammatories (NSAID); Z98.890 Other specified postprocedural states; Z90.49 Acquired absence of other specified parts of digestive tract; Z90.710 Acquired absence of both cervix and uterus; Z98.51 Tubal ligation status; X50.1XXA Overexertion from prolonged static or awkward postures, initial encounter; Y93.89 Activity, other specified; Y92.89 Other specified places as the place of occurrence of the external cause; Y99.8 Other external cause status
CPT/HCPCS: 73630; 96372; 99283; J1885; A6449

== ENCOUNTER 2024-02-24 16:01 | Emergency (ER) | payer MEDICARE, MEDICAID ==
[~2024-02-24] VITALS: Ht 162.6 cm; Wt 109.1 kg
[2024-02-24 16:38] VITALS: BP 133/90; PULSE 83; TEMP 97.8; O2SAT 98
[2024-02-24] MEDS ORDERED: PRED20TA PO (16:45)
[2024-02-24] MEDS: dexamethasone sod phosphate 10mg/ml inj IM STA (17:36)
[2024-02-24 17:37] VITALS: RESP 16
[2024-02-24] MEDS: ketorolac trometh. 30mg/ml inj. IM ONE (17:37)
== END 2024-02-24 18:05 | disposition home or self-care (01) ==
LOC: ER 16:03
DX: M79.7 Fibromyalgia (principal); E78.00 Pure hypercholesterolemia, unspecified; G43.909 Migraine, unspecified, not intractable, without status migrainosus; K21.9 Gastro-esophageal reflux disease without esophagitis; G89.29 Other chronic pain; M54.9 Dorsalgia, unspecified; F41.9 Anxiety disorder, unspecified; F32.A Depression, unspecified; F15.90 Other stimulant use, unspecified, uncomplicated; F14.90 Cocaine use, unspecified, uncomplicated; Z88.8 Allergy status to other drugs, medicaments and biological substances; Z90.49 Acquired absence of other specified parts of digestive tract; Z90.710 Acquired absence of both cervix and uterus; Z98.51 Tubal ligation status; Z98.890 Other specified postprocedural states; Z72.89 Other problems related to lifestyle; Z91.018 Allergy to other foods; Z79.899 Other long term (current) drug therapy; Z79.1 Long term (current) use of non-steroidal anti-inflammatories (NSAID); Z79.51 Long term (current) use of inhaled steroids; Z60.2 Problems related to living alone
CPT/HCPCS: 96372; 99284; J1100; J1885

== ENCOUNTER 2024-03-22 13:11 | Emergency (ER) | payer MEDICARE, MEDICAID ==
[~2024-03-22] VITALS: Ht 162.6 cm; Wt 111.4 kg
[2024-03-22 13:25] VITALS: BP 142/87; PULSE 75; O2SAT 95
[2024-03-22] MEDS ORDERED: LIDO700A32 TOP (13:38)
[2024-03-22 14:17] VITALS: RESP 16
[2024-03-22] MEDS: dexamethasone sod phosphate 10mg/ml inj IM STA (14:17)
[2024-03-22] MEDS: ketorolac tromethamine 15mg/ml inj. IM ONE (14:17)
[2024-03-22 14:53] VITALS: TEMP 97.1
== END 2024-03-22 14:57 | disposition home or self-care (01) ==
LOC: ER 13:12
DX: G43.909 Migraine, unspecified, not intractable, without status migrainosus (principal); E78.00 Pure hypercholesterolemia, unspecified; I10 Essential (primary) hypertension; K21.9 Gastro-esophageal reflux disease without esophagitis; G89.29 Other chronic pain; M54.9 Dorsalgia, unspecified; F31.9 Bipolar disorder, unspecified; F12.90 Cannabis use, unspecified, uncomplicated; F15.90 Other stimulant use, unspecified, uncomplicated; Z88.8 Allergy status to other drugs, medicaments and biological substances; Z79.899 Other long term (current) drug therapy; Z79.1 Long term (current) use of non-steroidal anti-inflammatories (NSAID); Z98.890 Other specified postprocedural states; Z90.49 Acquired absence of other specified parts of digestive tract; Z90.710 Acquired absence of both cervix and uterus; Z98.51 Tubal ligation status
CPT/HCPCS: 96372; 99284; J1100; J1885

== ENCOUNTER 2024-06-22 15:46 | Inpatient (IN) | payer MEDICARE, MEDICAID ==
[~2024-06-22] VITALS: Ht 162.6 cm; Wt 105.3 kg
[~2024-06-22 15:46] MED LIST changes: +LIDO700A32 TOP
[2024-06-22 17:01] LABS: BASOPHILS % (AUTO) 0.3 % (0-1); EOSINOPHILS # (AUTO) 0.2 X10'3 (0-0.9); EOSINOPHILS % (AUTO) 2.2 % (0-6); HEMATOCRIT 42.6 % (35.0-45.0); HEMOGLOBIN 14.1 g/dl (12.0-16.0); LYMPHOCYTES # (AUTO) 2.3 X10'3 (1.1-4.8); LYMPHOCYTES % (AUTO) 20.6 % (21-51); MEAN CORPUSCULAR HEMOGLOBIN 31.6 PG (27.0-31.0); MEAN CORPUSCULAR VOLUME 95.5 FL (78-98); MEAN PLATELET VOLUME 7.1 FL (7.4-10.4); MONOCYTES # (AUTO) 0.7 X10'3 (0-0.9); MONOCYTES % (AUTO) 6.3 % (2-12); NEUTROPHILS # (AUTO) 7.8 X10'3 (1.8-7.7); NEUTROPHILS % (AUTO) 70.6 % (42-75); PLATELET COUNT 289 X10'3 (140-440); RED BLOOD COUNT 4.47 X10'6 (4.20-5.60); RED CELL DISTRIBUTION WIDTH 13.7 % (11.5-14.5); WHITE BLOOD COUNT 11.1 X10'3 (4.5-11.0)
[2024-06-22 17:13] LABS: BILIRUBIN,URINE NEGATIVE (Neg); CLARITY,URINE CLOUDY (Clear); COLOR,URINE YELLOW (Yellow); GLUCOSE, URINE NEGATIVE (Neg); KETONES,URINE NEGATIVE (Neg); LEUKOCYTE ESTERASE ,URINE NEGATIVE (Neg); NITRITES, URINE NEGATIVE (Neg); OCCULT BLOOD,URINE NEGATIVE (Neg); PROTEIN,URINE NEGATIVE (Neg); UROBILINOGEN,URINE 0.2 E.U/dL (0.2-1.0)
[2024-06-22 17:15] LABS: URINE AMPHETAMINE SCREEN NEGATIVE (Neg); URINE BARBITUATE SCREEN NEGATIVE (Neg); URINE BENZODIAZEPINES SCREEN NEGATIVE (Neg); URINE CANNABINOID SCREEN POSITIVE (Neg); URINE COCAINE SCREEN NEGATIVE (Neg); URINE METHADONE SCREEN NEGATIVE (Neg); URINE OPIATE SCREEN POSITIVE (Neg); URINE PHENCYCLIDINE SCREEN NEGATIVE (Neg)
[2024-06-22 17:23] LABS: MUCUS STRANDS MANY /LPF (Neg); SQUAMOUS EPITHELIAL CELL,UR MANY /LPF (FEW); UA COLLECTION TYPE URINAL
[2024-06-22 17:24] LABS: BACTERIA,URINE 2+ /HPF (Neg); RBC,URINE 0-2 /HPF (0-2); WBC,URINE 0-4 /HPF (0-4)
[2024-06-22 17:28] LABS: ANION GAP 8 (8-16); BLOOD UREA NITROGEN 8 MG/DL (7-18); BUN/CREATININE RATIO 10.8 (10.0-20.0); CALCIUM 8.6 MG/DL (8.5-10.1); CHLORIDE 108 MMOL/L (99-107); CREATININE 0.74 MG/DL (0.40-0.90); GLUCOSE 101 MG/DL (70-104); POTASSIUM 3.7 MMOL/L (3.5-5.1); SODIUM 141 MMOL/L (135-145); THYROID STIMULATING HORMONE 0.95 ulU/ml (0.34-4.50); TOTAL CARBON DIOXIDE 25.2 MMOL/L (24-32); eCRCL 84 ML/MIN; eGFR 85 ML/MIN
[2024-06-22 17:57] LABS: ETHANOL < 10 MG/DL (<10)
[2024-06-22] MEDS: LORazepam 1 MG tablet PO ONE (18:54)
[2024-06-22] MEDS: nicotine 14mg patch - 24hr TD ONE (18:55)
[2024-06-22] MEDS ORDERED: DESV25TA PO (21:09)
[2024-06-22] MEDS ORDERED: CHOL1CAP16 (21:09)
[2024-06-22] MEDS ORDERED: RIZA-5 PO (21:09)
[2024-06-22] MEDS ORDERED: OXYC-658 PO (21:09)
[2024-06-22] MEDS ORDERED: ONDA-243 PO (21:09)
[2024-06-22] MEDS ORDERED: APIX5TAB5 PO (21:09)
[2024-06-22] MEDS ORDERED: METH-797 PO (21:09)
[2024-06-22] MEDS ORDERED: PALI3TAB PO (21:09)
[2024-06-22] MEDS ORDERED: QUET25TA PO (21:09)
[2024-06-22] MEDS: HYDROcodone/acetaminophen 10/325mg tab PO ONE (23:19)
[2024-06-23] MEDS ORDERED: propranolol 40mg tablet PO PRN (02:05)
[2024-06-23] MEDS ORDERED: APIX5TAB3 PO (02:21)
[2024-06-23] MEDS ORDERED: RIZATRIPTAN BENZOATE 10 MG PO PRN (02:25)
[2024-06-23] MEDS: oxyCODONE IR 5mg (immed. release) tablet PO PRN (03:19)
[2024-06-23] MEDS: pantoprazole 40mg Tablet.DR PO SCH (07:51)
[2024-06-23] MEDS: apixaban 5mg tablet PO SCH (07:52)
[2024-06-23] MEDS: cyanocobalamin 500mcg tablet PO SCH (07:52)
[2024-06-23] MEDS: PALIPERIDONE 3 MG TAB.ER.24 PO SCH (07:52)
[2024-06-23] MEDS: DESVENLAFAXINE SUCCINATE 25 MG PO SCH (08:00)
[2024-06-23] MEDS: METHOCARBAMOL 500 MG PO SCH (08:00)
[2024-06-23] MEDS: clonazePAM 0.5mg tablet PO PRN (10:55)
[2024-06-23] MEDS ORDERED: METH-797 PO (11:23)
[2024-06-23] MEDS ORDERED: DESV25TA PO (11:23)
[2024-06-23 15:49] VITALS: BP 136/103; PULSE 102; RESP 16; TEMP 97.9; O2SAT 97
[2024-06-23] MEDS: Methocarbamol 500 MG TABLET PO SCH (16:00)
[2024-06-23] MEDS ORDERED: NICOTINE POLACRILEX 2 MG LOZENGE BC PRN (16:30)
[2024-06-23] MEDS ORDERED: mag hydrox/Alum hydrox/simeth 30ml oral suspension PO PRN (16:30)
[2024-06-23] MEDS ORDERED: acetaminophen 325mg tablet PO PRN ×2 (16:30)
[2024-06-23] MEDS ORDERED: loperamide 2mg capsule PO PRN (16:30)
[2024-06-23] MEDS ORDERED: magnesium hydroxide 30ml (MOM) UD suspension PO PRN (16:30)
[2024-06-23] MEDS: LORazepam 1 MG tablet PO PRN (17:18)
[2024-06-23 19:25] VITALS: RESP 17; O2SAT 96
[2024-06-23 19:27] VITALS: BP 139/102; PULSE 80; RESP 17; TEMP 97.4; O2SAT 96
[2024-06-23] MEDS: QUEtiapine 25mg tablet PO SCH ×2 (20:26→20:28)
[2024-06-23] MEDS: lithium carbonate 300mg SR tablet (LithoBID) PO SCH (20:26)
[2024-06-23] MEDS ORDERED: lithium carbonate 300mg SR tablet (LithoBID) PO SCH (21:00)
[2024-06-23] MEDS ORDERED: lithium carbonate 150mg capsule PO SCH (21:00)
[2024-06-23] MEDS: lamoTRIgine 100mg tablet PO SCH (21:10)
[2024-06-23] MEDS: traZODone 150mg tablet PO SCH (21:10)
[2024-06-24 07:30] VITALS: BP 112/71; PULSE 74; RESP 16; TEMP 97.3; O2SAT 92
[2024-06-24] MEDS ORDERED: paliperidone palmitate inj 234 MG/1.5 ML SYRINGE IM ONE (08:00)
[2024-06-24] MEDS ORDERED: venlafaxine 37.5mg tablet PO SCH (08:00)
[2024-06-24] MEDS: benztropine 1mg tablet PO SCH (09:19)
[2024-06-24] MEDS: clonazePAM 0.5mg tablet PO SCH (09:20)
[2024-06-24] MEDS: DESVENLAFAXINE SUCCINATE 25 MG PO SCH (09:20)
[2024-06-24] MEDS: nicotine 21mg patch - 24 hr TD SCH (09:23)
[2024-06-24 09:49] LABS: THYROID STIMULATING HORMONE 1.48 ulU/ml (0.34-4.50)
[2024-06-24 19:00] VITALS: RESP 16; O2SAT 97
[2024-06-24 20:00] VITALS: BP 152/88; PULSE 89; RESP 16; TEMP 98.7; O2SAT 97
[2024-06-24] MEDS: docusate sod 100mg capsule PO SCH (21:22)
[2024-06-25 07:30] VITALS: BP 115/87; PULSE 81; RESP 12; TEMP 98.2; O2SAT 95
[2024-06-25 09:43] VITALS: RESP 16
[2024-06-25] MEDS: LIDOcaine 5% patch TP SCH (09:45)
[2024-06-25] MEDS ORDERED: DOCU100C40 PO (12:57)
[2024-06-25] MEDS ORDERED: LIDO700A47 TP (12:57)
[2024-06-29] MEDS ORDERED: paliperidone palmitate inj 234 MG/1.5 ML SYRINGE IM ONE (08:00)
== END 2024-06-25 14:20 | disposition home or self-care (01) | DRG 885 ==
LOC: ER 15:47 → ADULT MH 06-23 13:30
PROVIDERS: ADMIT Psychiatry & Neurology Psychiatry; ATTEND Psychiatry & Neurology Psychiatry
PROC: GZHZZZZ Group Psychotherapy (ICD-10-PCS; principal; 2024-06-24)
DX: F31.4 Bipolar disorder, current episode depressed, severe, without psychotic features (principal); R45.851 Suicidal ideations; K59.00 Constipation, unspecified; M54.50 Low back pain, unspecified; E78.00 Pure hypercholesterolemia, unspecified; I10 Essential (primary) hypertension; K21.9 Gastro-esophageal reflux disease without esophagitis; F17.210 Nicotine dependence, cigarettes, uncomplicated; E66.01 Morbid (severe) obesity due to excess calories; Z68.39 Body mass index [BMI] 39.0-39.9, adult; F12.90 Cannabis use, unspecified, uncomplicated; F41.1 Generalized anxiety disorder; G89.29 Other chronic pain; Z79.899 Other long term (current) drug therapy; Z80.0 Family history of malignant neoplasm of digestive organs; Z80.1 Family history of malignant neoplasm of trachea, bronchus and lung; Z80.41 Family history of malignant neoplasm of ovary; Z85.07 Personal history of malignant neoplasm of pancreas; Z87.442 Personal history of urinary calculi; Z90.711 Acquired absence of uterus with remaining cervical stump; Z91.048 Other nonmedicinal substance allergy status
CPT/HCPCS: 36415; 80048; 80178; 80305; 80320; 81001; 83036; 84443; 85025; 87081; 87811; 99285

== ENCOUNTER 2024-08-18 17:18 | Observation (INO) | payer MEDICARE, MEDICAID ==
[~2024-08-18] VITALS: Ht 162.6 cm; Wt 109.1 kg
[~2024-08-18 17:18] MED LIST changes: +APIX5TAB3 PO; -ARIP10TA57 PO; -CETI10TA14 PO; -CHOL-35 PO; +DESV25TA PO; +DOCU100C40 PO; -LIDO700A32 TOP; +LIDO700A47 TP; +METH-797 PO; +OXYC-658 PO; +PALI3TAB PO; +QUET25TA PO; +RIZA-5 PO
[2024-08-18 17:43] LABS: BASOPHILS % (AUTO) 0.3 % (0-1); EOSINOPHILS # (AUTO) 0.4 X10'3 (0-0.9); EOSINOPHILS % (AUTO) 3.1 % (0-6); HEMATOCRIT 42.2 % (35.0-45.0); HEMOGLOBIN 14.7 g/dl (12.0-16.0); LYMPHOCYTES # (AUTO) 3.2 X10'3 (1.1-4.8); LYMPHOCYTES % (AUTO) 24.3 % (21-51); MEAN CORPUSCULAR HEMOGLOBIN 32.8 PG (27.0-31.0); MEAN CORPUSCULAR HGB CONC 34.7 g/dL (33.0-36.5); MEAN CORPUSCULAR VOLUME 94.5 FL (78-98); MEAN PLATELET VOLUME 7.1 FL (7.4-10.4); MONOCYTES # (AUTO) 0.6 X10'3 (0-0.9); MONOCYTES % (AUTO) 4.9 % (2-12); NEUTROPHILS # (AUTO) 8.9 X10'3 (1.8-7.7); NEUTROPHILS % (AUTO) 67.4 % (42-75); PLATELET COUNT 299 X10'3 (140-440); RED BLOOD COUNT 4.47 X10'6 (4.20-5.60); RED CELL DISTRIBUTION WIDTH 13.9 % (11.5-14.5); WHITE BLOOD COUNT 13.2 X10'3 (4.5-11.0)
[2024-08-18 18:02] LABS: ALANINE AMINOTRANSFERASE 27 U/L (12-78); ALBUMIN 3.3 G/DL (3.4-5.0); ALBUMIN/GLOBULIN RATIO 0.8 (1.1-1.5); ALKALINE PHOSPHATASE 117 IU/L (46-116); ANION GAP 8 (8-16); ASPARTATE AMINO TRANSFERASE 14 U/L (10-37); BILIRUBIN,TOTAL 0.3 MG/DL (0.1-1.0); BLOOD UREA NITROGEN 11 MG/DL (7-18); BUN/CREATININE RATIO 12.4 (10.0-20.0); CALCIUM 8.8 MG/DL (8.5-10.1); CHLORIDE 107 MMOL/L (99-107); CREATININE 0.89 MG/DL (0.40-0.90); GLUCOSE 101 MG/DL (70-104); POTASSIUM 3.7 MMOL/L (3.5-5.1); SODIUM 139 MMOL/L (135-145); TOTAL CARBON DIOXIDE 23.8 MMOL/L (24-32); TOTAL PROTEIN 7.3 G/DL (6.4-8.2); eCRCL 70 ML/MIN; eGFR 69 ML/MIN
[2024-08-18 18:09] LABS: PRO BRAIN NATRIURETIC PEPTIDE < 30 PG/ML (0-125)
[2024-08-18] MEDS ORDERED: potassium Cl 40MEQ/1/2NS 520ml 520 ML IV PRN (20:20)
[2024-08-18] MEDS ORDERED: acetaminophen 325mg tablet PO PRN (20:20)
[2024-08-18] MEDS ORDERED: mag hydrox/Alum hydrox/simeth 30ml oral suspension PO PRN (20:20)
[2024-08-18] MEDS ORDERED: magnesium Cl slow-release 64mg tablet PO PRN (20:20)
[2024-08-18] MEDS ORDERED: magnesium sulf-water 2g/50mL 50 ML IV PRN (20:20)
[2024-08-18] MEDS ORDERED: magnesium sulf-water 4G/100mL 100 ML IV PRN (20:20)
[2024-08-18] MEDS ORDERED: ondansetron/PF 4mg/2ml inj IV PRN (20:20)
[2024-08-18] MEDS ORDERED: potassium Cl 20 mEq SR tablet PO PRN ×2 (20:20)
[2024-08-18] MEDS ORDERED: magnesium hydroxide 30ml (MOM) UD suspension PO PRN (20:20)
[2024-08-18] MEDS: nicotine 14mg patch - 24hr TD ONE (20:54)
[2024-08-18] MEDS: nitroGLYCERIN 0.4mg SUBLingual tab SL PRN (20:54)
[2024-08-18] MEDS: pantoprazole 40 MG vial IV SCH (21:02)
[2024-08-18] MEDS: proCHLORperazine 10 MG/2 ml inj IM ONE (21:47)
[2024-08-18] MEDS: ketorolac trometh 15mg/ml vial 15 MG/ML ML IM ONE (21:48)
[2024-08-18] MEDS: diphenhydrAMINE 50 mg/ml inj IV ONE (21:49)
[2024-08-18] MEDS: dexamethasone 4mg/ml inj IM ONE (21:49)
[2024-08-18 22:37] VITALS: BP 115/79; PULSE 82; RESP 16; TEMP 97.5; O2SAT 95
[2024-08-18 23:24] LABS: D-DIMER < 0.19 MG/L FEU (0-0.50)
[2024-08-19 02:00] VITALS: BP 125/78; PULSE 80; RESP 16; TEMP 97.6; O2SAT 95
[2024-08-19] MEDS: METHOCARBAMOL 500 MG PO SCH (02:45)
[2024-08-19 03:45] LABS: BILIRUBIN,URINE NEGATIVE (Neg); CLARITY,URINE CLEAR (Clear); COLOR,URINE YELLOW (Yellow); GLUCOSE, URINE NEGATIVE (Neg); KETONES,URINE NEGATIVE (Neg); LEUKOCYTE ESTERASE ,URINE NEGATIVE (Neg); NITRITES, URINE NEGATIVE (Neg); OCCULT BLOOD,URINE NEGATIVE (Neg); PROTEIN,URINE NEGATIVE (Neg); UROBILINOGEN,URINE 0.2 E.U/dL (0.2-1.0)
[2024-08-19 03:46] LABS: UA COLLECTION TYPE NON-SPECIFIED
[2024-08-19] MEDS: oxyCODONE IR 5mg (immed. release) tablet PO PRN (05:08)
[2024-08-19 06:00] VITALS: BP 103/62; PULSE 63; RESP 17; TEMP 98; O2SAT 95
[2024-08-19 07:43] LABS: BASOPHILS % (AUTO) 0.1 % (0-1); EOSINOPHILS % (AUTO) 0.4 % (0-6); HEMOGLOBIN 14.1 g/dl (12.0-16.0); LYMPHOCYTES # (AUTO) 1.9 X10'3 (1.1-4.8); LYMPHOCYTES % (AUTO) 15.2 % (21-51); MEAN CORPUSCULAR HEMOGLOBIN 32.9 PG (27.0-31.0); MEAN CORPUSCULAR HGB CONC 34.5 g/dL (33.0-36.5); MEAN CORPUSCULAR VOLUME 95.3 FL (78-98); MEAN PLATELET VOLUME 7.2 FL (7.4-10.4); MONOCYTES # (AUTO) 0.4 X10'3 (0-0.9); MONOCYTES % (AUTO) 3.6 % (2-12); NEUTROPHILS # (AUTO) 9.8 X10'3 (1.8-7.7); NEUTROPHILS % (AUTO) 80.7 % (42-75); PLATELET COUNT 329 X10'3 (140-440); RED CELL DISTRIBUTION WIDTH 14.1 % (11.5-14.5); WHITE BLOOD COUNT 12.2 X10'3 (4.5-11.0)
[2024-08-19 08:00] VITALS: RESP 17; O2SAT 95
[2024-08-19] MEDS ORDERED: non-formulary drug (Methocarbamol 2 TAB) PO SCH (08:00)
[2024-08-19] MEDS: K and/or MAG REPLACEMENT MC SCH (08:00)
[2024-08-19] MEDS: docusate sod 100mg capsule PO SCH (08:46)
[2024-08-19 08:51] LABS: ALANINE AMINOTRANSFERASE 22 U/L (12-78); ALBUMIN 3.1 G/DL (3.4-5.0); ALBUMIN/GLOBULIN RATIO 0.8 (1.1-1.5); ALKALINE PHOSPHATASE 117 IU/L (46-116); ANION GAP 9 (8-16); ASPARTATE AMINO TRANSFERASE 16 U/L (10-37); BILIRUBIN,TOTAL 0.3 MG/DL (0.1-1.0); BLOOD UREA NITROGEN 12 MG/DL (7-18); BUN/CREATININE RATIO 14.3 (10.0-20.0); CALCIUM 8.9 MG/DL (8.5-10.1); CHLORIDE 110 MMOL/L (99-107); CHOL/HDL RATIO 4.2 (0.00-4.99); CHOLESTEROL 200 MG/DL (0-200); CREATININE 0.84 MG/DL (0.40-0.90); GLUCOSE 119 MG/DL (70-104); HDL CHOLESTEROL 48 MG/DL (35-60); LDL CHOLESTEROL 121 MG/DL (50-100); MAGNESIUM 2.3 MG/DL (1.5-2.4); POTASSIUM 4.6 MMOL/L (3.5-5.1); SODIUM 144 MMOL/L (135-145); TOTAL CARBON DIOXIDE 25.5 MMOL/L (24-32); TOTAL PROTEIN 7.2 G/DL (6.4-8.2); eCRCL 74 ML/MIN; eGFR 74 ML/MIN
[2024-08-19 09:23] LABS: TRIGLYCERIDES 179 MG/DL (20-135)
[2024-08-19 11:00] VITALS: BP 115/81; PULSE 78; RESP 11; TEMP 98.5; O2SAT 94
[2024-08-19] MEDS: LORazepam 1 MG tablet PO PRN (12:01)
[2024-08-19] MEDS ORDERED: QUEtiapine 25mg tablet PO SCH (21:00)
[2024-08-20] MEDS ORDERED: SUMAtriptan 25 MG tablet PO PRN (08:00)
== END 2024-08-19 13:10 | disposition home or self-care (01) ==
LOC: ER 17:19 → ED HOLD 20:23 → INTOOBSV 20:23 → EDBEDREQ 21:40 → PCU 3S 22:25
PROVIDERS: ADMIT Internal Medicine; ATTEND Nurse Practitioner Family
DX: R07.89 Other chest pain (principal); K21.9 Gastro-esophageal reflux disease without esophagitis; F41.0 Panic disorder [episodic paroxysmal anxiety]; F31.9 Bipolar disorder, unspecified; F43.10 Post-traumatic stress disorder, unspecified; I10 Essential (primary) hypertension; J45.909 Unspecified asthma, uncomplicated; G89.29 Other chronic pain; M54.9 Dorsalgia, unspecified; G43.909 Migraine, unspecified, not intractable, without status migrainosus; F12.90 Cannabis use, unspecified, uncomplicated; E66.01 Morbid (severe) obesity due to excess calories; E78.00 Pure hypercholesterolemia, unspecified; Z79.01 Long term (current) use of anticoagulants; Z85.07 Personal history of malignant neoplasm of pancreas; Z85.028 Personal history of other malignant neoplasm of stomach; Z86.711 Personal history of pulmonary embolism; Z85.118 Personal history of other malignant neoplasm of bronchus and lung; Z85.42 Personal history of malignant neoplasm of other parts of uterus; Z87.442 Personal history of urinary calculi; Z90.710 Acquired absence of both cervix and uterus; Z79.899 Other long term (current) drug therapy
CPT/HCPCS: 80053; 80061; 81003; 83735; 83880; 84484; 85379; 93005; 96372; 96374; 96375; 99285; G0378; J2470; 36415; 71045; 84132; 85025; 96376; J0780; J1100; J1200; J1885

== ENCOUNTER 2024-08-26 07:01 | Emergency (ER) | payer MEDICARE, MEDICAID ==
[~2024-08-26] VITALS: Ht 162.6 cm; Wt 110.7 kg
[~2024-08-26 07:01] MED LIST changes: -CLON0.5T4 PO; -Cyanocobalamin PO; -PROP20TA6 PO
[2024-08-26 07:44] VITALS: TEMP 98
[2024-08-26 07:44] LABS: BILIRUBIN,URINE NEGATIVE (Neg); CLARITY,URINE CLEAR (Clear); COLOR,URINE YELLOW (Yellow); GLUCOSE, URINE NEGATIVE (Neg); KETONES,URINE NEGATIVE (Neg); LEUKOCYTE ESTERASE ,URINE NEGATIVE (Neg); NITRITES, URINE NEGATIVE (Neg); OCCULT BLOOD,URINE TRACE-INTACT (Neg); PROTEIN,URINE NEGATIVE (Neg); UROBILINOGEN,URINE 0.2 E.U/dL (0.2-1.0)
[2024-08-26 07:59] LABS: UA COLLECTION TYPE CLN CATCH MIDSTREAM
[2024-08-26 08:00] LABS: RBC,URINE 0-2 /HPF (0-2); WBC,URINE NONE SEEN /HPF (0-4)
[2024-08-26 08:01] LABS: BACTERIA,URINE FEW /HPF (Neg); MUCUS STRANDS NONE SEEN /LPF (Neg); SQUAMOUS EPITHELIAL CELL,UR FEW /LPF (FEW)
[2024-08-26 08:50] LABS: BASOPHILS % (AUTO) 0.4 % (0-1); EOSINOPHILS # (AUTO) 0.4 X10'3 (0-0.9); EOSINOPHILS % (AUTO) 4.3 % (0-6); LYMPHOCYTES # (AUTO) 1.7 X10'3 (1.1-4.8); LYMPHOCYTES % (AUTO) 17.1 % (21-51); MEAN CORPUSCULAR HEMOGLOBIN 33.2 PG (27.0-31.0); MEAN CORPUSCULAR VOLUME 94.8 FL (78-98); MEAN PLATELET VOLUME 7.3 FL (7.4-10.4); MONOCYTES # (AUTO) 0.5 X10'3 (0-0.9); MONOCYTES % (AUTO) 5.3 % (2-12); NEUTROPHILS # (AUTO) 7.1 X10'3 (1.8-7.7); NEUTROPHILS % (AUTO) 72.9 % (42-75); PLATELET COUNT 257 X10'3 (140-440); RED BLOOD COUNT 4.21 X10'6 (4.20-5.60); RED CELL DISTRIBUTION WIDTH 14.2 % (11.5-14.5); WHITE BLOOD COUNT 9.7 X10'3 (4.5-11.0)
[2024-08-26 09:03] LABS: ALANINE AMINOTRANSFERASE 22 U/L (12-78); ALBUMIN 3.2 G/DL (3.4-5.0); ALBUMIN/GLOBULIN RATIO 0.8 (1.1-1.5); ALKALINE PHOSPHATASE 123 IU/L (46-116); ANION GAP 6 (8-16); ASPARTATE AMINO TRANSFERASE 18 U/L (10-37); BILIRUBIN,TOTAL 0.2 MG/DL (0.1-1.0); BLOOD UREA NITROGEN 6 MG/DL (7-18); BUN/CREATININE RATIO 7.6 (10.0-20.0); CALCIUM 8.9 MG/DL (8.5-10.1); CHLORIDE 108 MMOL/L (99-107); CREATININE 0.79 MG/DL (0.40-0.90); GLUCOSE 99 MG/DL (70-104); POTASSIUM 4.4 MMOL/L (3.5-5.1); SODIUM 139 MMOL/L (135-145); TOTAL CARBON DIOXIDE 25.2 MMOL/L (24-32); TOTAL PROTEIN 7.4 G/DL (6.4-8.2); eCRCL 78 ML/MIN; eGFR 79 ML/MIN
[2024-08-26 09:11] LABS: LIPASE 24 U/L (16-77); THYROID STIMULATING HORMONE 2.94 ulU/ml (0.34-4.50)
[2024-08-26] MEDS: benzonatate 100mg capsule PO ONE (09:19)
[2024-08-26] MEDS: HYDROmorphone inj. 0.5 MG/0.5 ML DISP.SYRIN IV ONE (09:20)
[2024-08-26] MEDS ORDERED: iohexol 300mg/ml 100ml inj. ONE (09:31)
[2024-08-26 10:34] VITALS: BP 124/80; PULSE 89; RESP 12; O2SAT 96
== END 2024-08-26 10:40 | disposition home or self-care (01) ==
LOC: ER 07:02
DX: R10.11 Right upper quadrant pain (principal); K21.9 Gastro-esophageal reflux disease without esophagitis; I10 Essential (primary) hypertension; G89.29 Other chronic pain; F31.9 Bipolar disorder, unspecified; E78.00 Pure hypercholesterolemia, unspecified; G43.909 Migraine, unspecified, not intractable, without status migrainosus; F12.90 Cannabis use, unspecified, uncomplicated; Z88.5 Allergy status to narcotic agent; Z88.6 Allergy status to analgesic agent; Z88.8 Allergy status to other drugs, medicaments and biological substances; Z90.49 Acquired absence of other specified parts of digestive tract; Z87.19 Personal history of other diseases of the digestive system; Z90.710 Acquired absence of both cervix and uterus
CPT/HCPCS: 36415; 74177; 80053; 80178; 81001; 83690; 84443; 85025; 96374; 99285; J1171; Q9967

== ENCOUNTER 2024-08-30 12:52 | Emergency (ER) | payer MEDICARE, MEDICAID ==
[~2024-08-30] VITALS: Ht 162.6 cm; Wt 112.9 kg
[2024-08-30 13:17] LABS: BASOPHILS # (AUTO) 0.1 X10'3 (0-0.2); BASOPHILS % (AUTO) 0.6 % (0-1); EOSINOPHILS # (AUTO) 0.3 X10'3 (0-0.9); EOSINOPHILS % (AUTO) 2.9 % (0-6); HEMATOCRIT 39.1 % (35.0-45.0); HEMOGLOBIN 13.4 g/dl (12.0-16.0); LYMPHOCYTES # (AUTO) 2.9 X10'3 (1.1-4.8); MEAN CORPUSCULAR HEMOGLOBIN 32.7 PG (27.0-31.0); MEAN CORPUSCULAR HGB CONC 34.3 g/dL (33.0-36.5); MEAN CORPUSCULAR VOLUME 95.1 FL (78-98); MEAN PLATELET VOLUME 6.8 FL (7.4-10.4); MONOCYTES # (AUTO) 0.5 X10'3 (0-0.9); MONOCYTES % (AUTO) 5.2 % (2-12); NEUTROPHILS # (AUTO) 6.3 X10'3 (1.8-7.7); NEUTROPHILS % (AUTO) 62.3 % (42-75); PLATELET COUNT 290 X10'3 (140-440); RED BLOOD COUNT 4.11 X10'6 (4.20-5.60); RED CELL DISTRIBUTION WIDTH 14.1 % (11.5-14.5); WHITE BLOOD COUNT 10.1 X10'3 (4.5-11.0)
[2024-08-30 13:35] LABS: ALANINE AMINOTRANSFERASE 18 U/L (12-78); ALBUMIN/GLOBULIN RATIO 0.8 (1.1-1.5); ALKALINE PHOSPHATASE 116 IU/L (46-116); ANION GAP 9 (8-16); ASPARTATE AMINO TRANSFERASE 12 U/L (10-37); BILIRUBIN,TOTAL 0.2 MG/DL (0.1-1.0); BLOOD UREA NITROGEN 12 MG/DL (7-18); BUN/CREATININE RATIO 15.8 (10.0-20.0); CALCIUM 8.5 MG/DL (8.5-10.1); CHLORIDE 108 MMOL/L (99-107); CREATININE 0.76 MG/DL (0.40-0.90); GLUCOSE 92 MG/DL (70-104); POTASSIUM 3.7 MMOL/L (3.5-5.1); SODIUM 141 MMOL/L (135-145); TOTAL CARBON DIOXIDE 24.2 MMOL/L (24-32); TOTAL PROTEIN 6.9 G/DL (6.4-8.2); eCRCL 82 ML/MIN; eGFR 83 ML/MIN
[2024-08-30 13:43] LABS: PRO BRAIN NATRIURETIC PEPTIDE 68 PG/ML (0-125)
[2024-08-30 15:13] LABS: D-DIMER 0.21 MG/L FEU (0-0.50)
[2024-08-30] MEDS: dexamethasone sod phosphate 10mg/ml inj PO STA (15:44)
[2024-08-30] MEDS: ipratropium/albuterol 3ml nebule NEB ONE (15:59)
[2024-08-30 16:00] VITALS: PULSE 67; PULSE 72; RESP 18; RESP 20; O2SAT 100; O2SAT 98
[2024-08-30 16:17] VITALS: BP 130/82; PULSE 81; RESP 18; TEMP 97.3; O2SAT 95
[2024-08-31] MEDS ORDERED: CLON0.5T23 PO (20:11)
[2024-08-31] MEDS ORDERED: ALBU2.5V12 NEB (20:11)
[2024-08-31] MEDS ORDERED: TRAZ-256 PO (20:11)
[2024-08-31] MEDS ORDERED: CETI10TA14 PO (20:11)
[2024-08-31] MEDS ORDERED: BUTA-245 PO (20:11)
[2024-08-31] MEDS ORDERED: LAMO100T65 PO (20:11)
== END 2024-08-30 16:16 | disposition home or self-care (01) ==
LOC: ER 12:52
DX: J40 Bronchitis, not specified as acute or chronic (principal); F17.210 Nicotine dependence, cigarettes, uncomplicated; K21.9 Gastro-esophageal reflux disease without esophagitis; I10 Essential (primary) hypertension; G89.29 Other chronic pain; F31.9 Bipolar disorder, unspecified; E78.00 Pure hypercholesterolemia, unspecified; F12.90 Cannabis use, unspecified, uncomplicated; Z88.8 Allergy status to other drugs, medicaments and biological substances; Z88.6 Allergy status to analgesic agent; Z88.5 Allergy status to narcotic agent; Z87.19 Personal history of other diseases of the digestive system; Z86.711 Personal history of pulmonary embolism; Z79.01 Long term (current) use of anticoagulants; Z90.49 Acquired absence of other specified parts of digestive tract; Z90.710 Acquired absence of both cervix and uterus
CPT/HCPCS: 36415; 71045; 80053; 83880; 84484; 85025; 85379; 93005; 94640; 99285; J1100; 94760

== ENCOUNTER 2024-08-31 16:47 | Emergency (ER) | payer MEDICARE, MEDICAID ==
[~2024-08-31] VITALS: Ht 162.6 cm; Wt 109.1 kg
[2024-08-31] MEDS: ipratropium/albuterol 3ml nebule NEB ONE (17:41)
[2024-08-31 17:42] VITALS: PULSE 74; RESP 16; O2SAT 97
[2024-08-31 17:47] VITALS: PULSE 70; RESP 20; O2SAT 96
[2024-08-31 17:59] LABS: BASOPHILS % (AUTO) 0.3 % (0-1); EOSINOPHILS # (AUTO) 0.1 X10'3 (0-0.9); EOSINOPHILS % (AUTO) 0.6 % (0-6); HEMATOCRIT 37.8 % (35.0-45.0); HEMOGLOBIN 13.2 g/dl (12.0-16.0); LYMPHOCYTES % (AUTO) 26.8 % (21-51); MEAN CORPUSCULAR HEMOGLOBIN 33.2 PG (27.0-31.0); MEAN CORPUSCULAR HGB CONC 34.9 g/dL (33.0-36.5); MEAN CORPUSCULAR VOLUME 95.1 FL (78-98); MEAN PLATELET VOLUME 6.9 FL (7.4-10.4); MONOCYTES # (AUTO) 0.8 X10'3 (0-0.9); MONOCYTES % (AUTO) 5.3 % (2-12); PLATELET COUNT 307 X10'3 (140-440); RED BLOOD COUNT 3.97 X10'6 (4.20-5.60); RED CELL DISTRIBUTION WIDTH 14.1 % (11.5-14.5); WHITE BLOOD COUNT 14.8 X10'3 (4.5-11.0)
[2024-08-31 18:11] LABS: ALBUMIN 3.1 G/DL (3.4-5.0); ANION GAP 9 (8-16); BLOOD UREA NITROGEN 11 MG/DL (7-18); BUN/CREATININE RATIO 13.6 (10.0-20.0); CALCIUM 8.9 MG/DL (8.5-10.1); CHLORIDE 107 MMOL/L (99-107); CREATININE 0.81 MG/DL (0.40-0.90); GLUCOSE 102 MG/DL (70-104); POTASSIUM 3.5 MMOL/L (3.5-5.1); PRO BRAIN NATRIURETIC PEPTIDE 51 PG/ML (0-125); SODIUM 142 MMOL/L (135-145); TOTAL CARBON DIOXIDE 26.1 MMOL/L (24-32); eCRCL 77 ML/MIN; eGFR 77 ML/MIN
[2024-08-31] MEDS ORDERED: morphine 2 MG/ML inj. syringe IV PRN (19:10)
[2024-08-31] MEDS ORDERED: magnesium sulf-water 2g/50mL 50 ML IV PRN (19:10)
[2024-08-31] MEDS ORDERED: mag hydrox/Alum hydrox/simeth 30ml oral suspension PO PRN (19:10)
[2024-08-31] MEDS ORDERED: acetaminophen 325mg tablet PO PRN (19:10)
[2024-08-31] MEDS ORDERED: magnesium hydroxide 30ml (MOM) UD suspension PO PRN (19:10)
[2024-08-31] MEDS ORDERED: magnesium sulf-water 4G/100mL 100 ML IV PRN (19:10)
[2024-08-31] MEDS ORDERED: potassium Cl 40MEQ/1/2NS 520ml 520 ML IV PRN (19:10)
[2024-08-31] MEDS ORDERED: potassium Cl 20 mEq SR tablet PO PRN ×2 (19:10)
[2024-08-31] MEDS ORDERED: magnesium Cl slow-release 64mg tablet PO PRN (19:10)
[2024-08-31] MEDS ORDERED: ondansetron/PF 4mg/2ml inj IV PRN (19:10)
[2024-08-31] MEDS ORDERED: iohexol 350MG/ML 100ml bottle IV ONE (19:14)
[2024-08-31] MEDS: ketorolac trometh 30MG/ML vial 30 MG/ML VIAL IV ONE (19:23)
[2024-08-31] MEDS: CefTRIAXone 2gm/D5W 50ml BAG 50 ML IV ONE (19:23)
[2024-08-31] MEDS: nicotine 21mg patch - 24 hr TD ONE (19:27)
[2024-08-31] MEDS: heparin, porcine 5000 units/ml vial SQ SCH (20:00)
[2024-08-31] MEDS: K and/or MAG REPLACEMENT MC SCH (20:00)
[2024-08-31] MEDS ORDERED: CLON0.5T23 PO (20:11)
[2024-08-31] MEDS ORDERED: ALBU2.5V12 NEB (20:11)
[2024-08-31] MEDS ORDERED: TRAZ-256 PO (20:11)
[2024-08-31] MEDS ORDERED: CETI10TA14 PO (20:11)
[2024-08-31] MEDS ORDERED: LAMO100T65 PO (20:11)
[2024-08-31] MEDS ORDERED: BUTA-245 PO (20:11)
[2024-08-31] MEDS: magnesium sulf-water 2g/50mL 50 ML IV ONE (20:27)
[2024-08-31] MEDS: morphine 2 MG/ML inj. syringe IV PRN (20:28)
[2024-08-31] MEDS: docusate sod 100mg capsule PO SCH (20:31)
[2024-08-31] MEDS: normal saline 1000ml 1,000 ML IV SCH (20:33)
[2024-08-31] MEDS ORDERED: ipratropium/albuterol 3ml nebule NEB PRN (21:25)
[2024-08-31] MEDS: CefTRIAXone/D5W-Rocephin 1gm 50 ML IV SCH (21:25)
[2024-08-31 21:42] LABS: URINE AMPHETAMINE SCREEN NEGATIVE (Neg); URINE BARBITUATE SCREEN POSITIVE (Neg); URINE BENZODIAZEPINES SCREEN NEGATIVE (Neg); URINE CANNABINOID SCREEN POSITIVE (Neg); URINE COCAINE SCREEN NEGATIVE (Neg); URINE METHADONE SCREEN NEGATIVE (Neg); URINE OPIATE SCREEN POSITIVE (Neg); URINE PHENCYCLIDINE SCREEN NEGATIVE (Neg)
[2024-08-31] MEDS: ipratropium/albuterol 3ml nebule NEB SCH (22:08)
[2024-08-31] MEDS: QUEtiapine 25mg tablet PO SCH (22:08)
[2024-08-31 22:09] VITALS: PULSE 74; RESP 20; O2SAT 96
[2024-08-31] MEDS: traZODone 50mg tablet PO SCH (22:09)
[2024-08-31] MEDS: lithium carbonate 300mg SR tablet (LithoBID) PO SCH (22:09)
[2024-08-31] MEDS: methylPREDNISolone sod succ 125mg/2ml vial IV ONE (22:11)
[2024-08-31] MEDS: azithromycin/NS 500mg/250ml 250 ML IV SCH (22:14)
[2024-08-31 22:19] VITALS: PULSE 76; RESP 22
[2024-08-31 22:33] LABS: D-DIMER < 0.19 MG/L FEU (0-0.50)
[2024-09-01] VITALS (11 sets, daily range): BP systolic 114–118; BP diastolic 75–78; PULSE 68–80; RESP 14–20; TEMP 97.5–98; O2SAT 93–96
[2024-09-01 06:02] LABS: BASOPHILS % (AUTO) 0.1 % (0-1); EOSINOPHILS % (AUTO) 0.1 % (0-6); HEMATOCRIT 38.1 % (35.0-45.0); LYMPHOCYTES # (AUTO) 1.4 X10'3 (1.1-4.8); LYMPHOCYTES % (AUTO) 12.1 % (21-51); MEAN CORPUSCULAR HEMOGLOBIN 32.6 PG (27.0-31.0); MEAN CORPUSCULAR HGB CONC 34.1 g/dL (33.0-36.5); MEAN CORPUSCULAR VOLUME 95.6 FL (78-98); MEAN PLATELET VOLUME 7.3 FL (7.4-10.4); MONOCYTES # (AUTO) 0.3 X10'3 (0-0.9); MONOCYTES % (AUTO) 2.5 % (2-12); NEUTROPHILS # (AUTO) 9.7 X10'3 (1.8-7.7); NEUTROPHILS % (AUTO) 85.2 % (42-75); PLATELET COUNT 285 X10'3 (140-440); RED BLOOD COUNT 3.98 X10'6 (4.20-5.60); RED CELL DISTRIBUTION WIDTH 14.1 % (11.5-14.5); WHITE BLOOD COUNT 11.4 X10'3 (4.5-11.0)
[2024-09-01 06:29] LABS: ALANINE AMINOTRANSFERASE 16 U/L (12-78); ALBUMIN 2.9 G/DL (3.4-5.0); ALBUMIN/GLOBULIN RATIO 0.7 (1.1-1.5); ALKALINE PHOSPHATASE 109 IU/L (46-116); ANION GAP 10 (8-16); ASPARTATE AMINO TRANSFERASE 12 U/L (10-37); BILIRUBIN,TOTAL 0.2 MG/DL (0.1-1.0); BLOOD UREA NITROGEN 15 MG/DL (7-18); BUN/CREATININE RATIO 18.3 (10.0-20.0); CALCIUM 8.6 MG/DL (8.5-10.1); CHLORIDE 110 MMOL/L (99-107); CHOL/HDL RATIO 3.6 (0.00-4.99); CHOLESTEROL 189 MG/DL (0-200); CREATININE 0.82 MG/DL (0.40-0.90); GLUCOSE 152 MG/DL (70-104); HDL CHOLESTEROL 52 MG/DL (35-60); LDL CHOLESTEROL 114 MG/DL (50-100); MAGNESIUM 2.4 MG/DL (1.5-2.4); POTASSIUM 4.4 MMOL/L (3.5-5.1); SODIUM 142 MMOL/L (135-145); TOTAL CARBON DIOXIDE 22.3 MMOL/L (24-32); TOTAL PROTEIN 6.8 G/DL (6.4-8.2); TRIGLYCERIDES 84 MG/DL (20-135); eCRCL 76 ML/MIN; eGFR 76 ML/MIN
[2024-09-01] MEDS: apixaban 5mg tablet PO SCH (07:09)
[2024-09-01] MEDS: clonazePAM 0.5mg tablet PO SCH (07:09)
[2024-09-01] MEDS: cetirizine 10mg tablet PO SCH (07:09)
[2024-09-01] MEDS: pantoprazole 40mg Tablet.DR PO SCH (07:09)
[2024-09-01] MEDS: PALIPERIDONE 3 MG TAB.ER.24 PO SCH (07:10)
[2024-09-01] MEDS: lamoTRIgine 100mg tablet PO SCH (07:10)
[2024-09-01] MEDS: oxyCODONE IR 5mg (immed. release) tablet PO PRN (07:13)
[2024-09-01] MEDS ORDERED: albuterol 2.5 MG/3 ML nebule NEB PRN (07:55)
[2024-09-01] MEDS ORDERED: PRED20TA PO (11:40)
[2024-09-01] MEDS ORDERED: IPRA4AER IH (11:40)
[2024-09-01] MEDS ORDERED: DOXY-224 PO (11:40)
[2024-09-01] MEDS ORDERED: BUDE10.2 INH (11:40)
[2024-09-01] MEDS: oxyCODONE IR 5mg (immed. release) tablet PO ONE (12:20)
[2024-09-03] MEDS ORDERED: FLUT12AE4 INH (14:59)
== END 2024-09-01 12:51 | disposition home or self-care (01) ==
LOC: ER 16:48 → ORTHO 4S 18:00 → ED HOLD 19:03 → UNDOADMIN 19:03 → ORTHO 4S 09-01 00:38 → ED HOLD 09-01 00:38 → ER 09-01 12:51
DX: J44.0 Chronic obstructive pulmonary disease with (acute) lower respiratory infection (principal); G89.29 Other chronic pain; F17.200 Nicotine dependence, unspecified, uncomplicated; E78.5 Hyperlipidemia, unspecified; F31.9 Bipolar disorder, unspecified; E78.00 Pure hypercholesterolemia, unspecified; I10 Essential (primary) hypertension; F41.9 Anxiety disorder, unspecified; G43.909 Migraine, unspecified, not intractable, without status migrainosus; F12.90 Cannabis use, unspecified, uncomplicated; Z88.8 Allergy status to other drugs, medicaments and biological substances; Z87.442 Personal history of urinary calculi; Z90.49 Acquired absence of other specified parts of digestive tract; Z90.710 Acquired absence of both cervix and uterus; Z98.51 Tubal ligation status; Z98.890 Other specified postprocedural states
CPT/HCPCS: 36415; 71045; 71275; 80048; 80053; 80061; 80178; 80305; 83735; 83880; 84145; 84484; 85025; 85379; 87081; 87502; 87503; 87811; 93005; 94640; 96365; 96366; 96367; 96375; 96376; 99285; A6258; J0456; J0696; J1100; J1885; J2270; J2919; J7030; Q9967; 94760; 94762; G0378

== ENCOUNTER 2024-09-17 14:11 | Emergency (ER) | payer MEDICARE, MEDICAID ==
[~2024-09-17] VITALS: Ht 162.6 cm; Wt 109.1 kg
[~2024-09-17 14:11] MED LIST changes: +ALBU2.5V12 NEB; -ALBU6.7H14 INH; -ATI1T PO; +CETI10TA14 PO; +CLON0.5T23 PO; -DESV25TA PO; -DESV50TA20 PO; -DOCU100C40 PO; +DOXY-224 PO; +FLUT12AE4 INH; -IBUP-1985 PO; +IPRA4AER IH; -LAMO100T PO; +LAMO100T65 PO; -LIDO700A47 TP; -METH-797 PO; -PRAZ2CAP2 PO; +PRED20TA PO; -SUMA50TA17 PO; +TRAZ-256 PO; -TRAZ150T78 PO; -[UNRECOGNIZED DRUG - CODE] PO
[2024-09-17 14:46] LABS: BASOPHILS % (AUTO) 0.3 % (0-1); EOSINOPHILS # (AUTO) 0.3 X10'3 (0-0.9); EOSINOPHILS % (AUTO) 3.3 % (0-6); HEMATOCRIT 37.3 % (35.0-45.0); HEMOGLOBIN 12.9 g/dl (12.0-16.0); LYMPHOCYTES # (AUTO) 2.3 X10'3 (1.1-4.8); LYMPHOCYTES % (AUTO) 23.8 % (21-51); MEAN CORPUSCULAR HEMOGLOBIN 33.3 PG (27.0-31.0); MEAN CORPUSCULAR HGB CONC 34.5 g/dL (33.0-36.5); MEAN CORPUSCULAR VOLUME 96.5 FL (78-98); MEAN PLATELET VOLUME 7.1 FL (7.4-10.4); MONOCYTES # (AUTO) 0.4 X10'3 (0-0.9); MONOCYTES % (AUTO) 3.8 % (2-12); NEUTROPHILS # (AUTO) 6.7 X10'3 (1.8-7.7); NEUTROPHILS % (AUTO) 68.8 % (42-75); PLATELET COUNT 263 X10'3 (140-440); RED BLOOD COUNT 3.87 X10'6 (4.20-5.60); RED CELL DISTRIBUTION WIDTH 14.2 % (11.5-14.5); WHITE BLOOD COUNT 9.7 X10'3 (4.5-11.0)
[2024-09-17 15:02] LABS: ALANINE AMINOTRANSFERASE 24 U/L (12-78); ALBUMIN 2.8 G/DL (3.4-5.0); ALBUMIN/GLOBULIN RATIO 0.7 (1.1-1.5); ALKALINE PHOSPHATASE 110 IU/L (46-116); ANION GAP 9 (8-16); ASPARTATE AMINO TRANSFERASE 11 U/L (10-37); BILIRUBIN,TOTAL 0.3 MG/DL (0.1-1.0); BLOOD UREA NITROGEN 9 MG/DL (7-18); BUN/CREATININE RATIO 12.3 (10.0-20.0); CALCIUM 8.5 MG/DL (8.5-10.1); CHLORIDE 108 MMOL/L (99-107); CREATININE 0.73 MG/DL (0.40-0.90); GLUCOSE 188 MG/DL (70-104); LIPASE 25 U/L (16-77); POTASSIUM 3.9 MMOL/L (3.5-5.1); SODIUM 143 MMOL/L (135-145); TOTAL CARBON DIOXIDE 26.2 MMOL/L (24-32); TOTAL PROTEIN 6.6 G/DL (6.4-8.2); eCRCL 85 ML/MIN; eGFR 87 ML/MIN
[2024-09-17 16:47] LABS: URINE HCG NEGATIVE (NEG)
[2024-09-17 16:56] LABS: BILIRUBIN,URINE NEGATIVE (Neg); CLARITY,URINE CLEAR (Clear); COLOR,URINE YELLOW (Yellow); GLUCOSE, URINE NEGATIVE (Neg); KETONES,URINE NEGATIVE (Neg); LEUKOCYTE ESTERASE ,URINE NEGATIVE (Neg); NITRITES, URINE NEGATIVE (Neg); OCCULT BLOOD,URINE NEGATIVE (Neg); PROTEIN,URINE NEGATIVE (Neg); UROBILINOGEN,URINE 0.2 E.U/dL (0.2-1.0)
[2024-09-17 17:02] LABS: UA COLLECTION TYPE CLN CATCH MIDSTREAM
[2024-09-17 17:16] VITALS: BP 134/88; PULSE 87; RESP 16; TEMP 98.5; O2SAT 96
== END 2024-09-17 19:22 | disposition left against medical advice (07) ==
LOC: ER 14:12
DX: R10.11 Right upper quadrant pain (principal); R30.0 Dysuria; Z88.8 Allergy status to other drugs, medicaments and biological substances; Z91.048 Other nonmedicinal substance allergy status; Z53.21 Procedure and treatment not carried out due to patient leaving prior to being seen by health care provider
CPT/HCPCS: 36415; 80053; 81003; 81025; 83690; 85025

== ENCOUNTER 2024-10-05 10:42 | Emergency (ER) | payer MEDICARE, MEDICAID ==
[~2024-10-05] VITALS: Ht 162.6 cm; Wt 115.2 kg
[2024-10-05 10:56] VITALS: BP 165/86; TEMP 100.4
[2024-10-05] MEDS: ipratropium/albuterol 3ml nebule NEB STA (13:50)
[2024-10-05 13:51] VITALS: PULSE 108; RESP 18; O2SAT 95
[2024-10-05 13:57] VITALS: PULSE 102; RESP 18; O2SAT 96
[2024-10-05] MEDS: dexamethasone sod phosphate 10mg/ml inj IV STA (14:01)
[2024-10-05] MEDS: diphenhydrAMINE 50 mg/ml inj IV ONE (14:01)
[2024-10-05] MEDS: normal saline 1000ml 1,000 ML IV ONE (14:02)
[2024-10-05] MEDS: metoclopramide 5 mg/ml inj IV ONE (14:02)
[2024-10-05] MEDS ORDERED: PRED20TA PO (16:05)
[2024-10-05] MEDS ORDERED: ALBU8HFA INH (16:05)
[2024-10-05] MEDS ORDERED: PROM25TA14 PO (16:05)
== END 2024-10-05 16:23 | disposition home or self-care (01) ==
LOC: ER 10:43
DX: B34.9 Viral infection, unspecified (principal); M79.10 Myalgia, unspecified site; K21.9 Gastro-esophageal reflux disease without esophagitis; I10 Essential (primary) hypertension; F31.9 Bipolar disorder, unspecified; F41.9 Anxiety disorder, unspecified; F12.90 Cannabis use, unspecified, uncomplicated; E78.00 Pure hypercholesterolemia, unspecified; Z88.8 Allergy status to other drugs, medicaments and biological substances; Z90.49 Acquired absence of other specified parts of digestive tract; Z90.710 Acquired absence of both cervix and uterus; Z98.51 Tubal ligation status; Z20.822 Contact with and (suspected) exposure to COVID-19
CPT/HCPCS: 36415; 71045; 87502; 87503; 87811; 94640; 96361; 96374; 96375; 99284; A4615; J1100; J1200; J2765; J7030; 94760

== ENCOUNTER 2024-10-12 21:32 | Emergency (ER) | payer MEDICARE, MEDICAID ==
[~2024-10-12] VITALS: Ht 162.6 cm; Wt 98.5 kg
[~2024-10-12 21:32] MED LIST changes: +ALBU8HFA INH; +PROM25TA14 PO
[2024-10-12 21:38] VITALS: BP 143/107
[2024-10-12] MEDS: ipratropium/albuterol 3ml nebule NEB PRN (22:38)
[2024-10-12 22:40] VITALS: PULSE 80; RESP 24; O2SAT 99
[2024-10-12] MEDS ORDERED: PRED20TA PO (22:40)
[2024-10-12] MEDS ORDERED: AZIT-164 PO (22:40)
[2024-10-12 22:44] VITALS: PULSE 85; RESP 23; O2SAT 99
[2024-10-12] MEDS: azithromycin 250mg tablet PO ONE (22:59)
[2024-10-12] MEDS: predniSONE 20 mg tablet PO ONE (23:01)
[2024-10-12 23:02] VITALS: TEMP 97
[2024-10-13] MEDS ORDERED: ALB0.5UD NEB (11:49)
[2024-10-13] MEDS ORDERED: NEBU-245 NEB (11:49)
== END 2024-10-12 23:05 | disposition home or self-care (01) ==
LOC: ER 21:33
DX: J18.9 Pneumonia, unspecified organism (principal); E78.00 Pure hypercholesterolemia, unspecified; I10 Essential (primary) hypertension; K21.9 Gastro-esophageal reflux disease without esophagitis; G89.29 Other chronic pain; M54.9 Dorsalgia, unspecified; G43.909 Migraine, unspecified, not intractable, without status migrainosus; F32.A Depression, unspecified; F41.0 Panic disorder [episodic paroxysmal anxiety]; F12.90 Cannabis use, unspecified, uncomplicated; Z86.711 Personal history of pulmonary embolism; Z90.710 Acquired absence of both cervix and uterus; Z90.49 Acquired absence of other specified parts of digestive tract; Z88.8 Allergy status to other drugs, medicaments and biological substances; Z79.52 Long term (current) use of systemic steroids; Z79.899 Other long term (current) drug therapy; Z87.442 Personal history of urinary calculi; Z72.89 Other problems related to lifestyle; Z60.2 Problems related to living alone
CPT/HCPCS: 71045; 94640; 99283; J7512; 94760

== ENCOUNTER 2024-10-13 09:20 | Emergency (ER) | payer MEDICARE, MEDICAID ==
[~2024-10-13] VITALS: Ht 162.6 cm; Wt 113.0 kg
[~2024-10-13 09:20] MED LIST changes: +AZIT-164 PO
[2024-10-13 09:25] VITALS: BP 138/94
[2024-10-13] MEDS: albuterol 2.5 MG/3 ML nebule NEB ONE (11:18)
[2024-10-13 11:21] VITALS: PULSE 75; RESP 18; O2SAT 98
[2024-10-13 11:29] VITALS: PULSE 71; RESP 18; O2SAT 99
[2024-10-13] MEDS ORDERED: NEBU-245 NEB (11:49)
[2024-10-13] MEDS ORDERED: ALB0.5UD NEB (11:49)
[2024-10-13 11:59] VITALS: TEMP 97.9
== END 2024-10-13 12:01 | disposition home or self-care (01) ==
LOC: ER 09:20
DX: R06.2 Wheezing (principal); K21.9 Gastro-esophageal reflux disease without esophagitis; J44.9 Chronic obstructive pulmonary disease, unspecified; F31.9 Bipolar disorder, unspecified; E78.00 Pure hypercholesterolemia, unspecified; I10 Essential (primary) hypertension; F41.9 Anxiety disorder, unspecified; G43.909 Migraine, unspecified, not intractable, without status migrainosus; Z87.440 Personal history of urinary (tract) infections; F17.210 Nicotine dependence, cigarettes, uncomplicated; Z88.8 Allergy status to other drugs, medicaments and biological substances; F12.90 Cannabis use, unspecified, uncomplicated; Z90.49 Acquired absence of other specified parts of digestive tract; Z90.710 Acquired absence of both cervix and uterus; Z98.51 Tubal ligation status; Z98.890 Other specified postprocedural states
CPT/HCPCS: 94640; 94760; 99283

== ENCOUNTER 2024-10-19 16:54 | Emergency (ER) | payer MEDICARE, MEDICAID ==
[~2024-10-19] VITALS: Ht 162.6 cm; Wt 118.8 kg
[~2024-10-19 16:54] MED LIST changes: +ALB0.5UD NEB; +NEBU-245 NEB; -PROM25TA14 PO
[2024-10-19 17:29] VITALS: BP 168/99; PULSE 87; RESP 18; TEMP 98.2; O2SAT 99
[2024-10-19] MEDS: dexamethasone sod phosphate 10mg/ml inj IM STA (19:02)
[2024-10-19] MEDS ORDERED: NICO-731 TOP (19:52)
== END 2024-10-19 20:07 | disposition home or self-care (01) ==
LOC: ER 16:56
DX: J44.0 Chronic obstructive pulmonary disease with (acute) lower respiratory infection (principal); J20.9 Acute bronchitis, unspecified; F17.210 Nicotine dependence, cigarettes, uncomplicated; E78.00 Pure hypercholesterolemia, unspecified; I10 Essential (primary) hypertension; K21.9 Gastro-esophageal reflux disease without esophagitis; G43.909 Migraine, unspecified, not intractable, without status migrainosus; F12.90 Cannabis use, unspecified, uncomplicated; G89.29 Other chronic pain; M54.9 Dorsalgia, unspecified; F41.9 Anxiety disorder, unspecified; F32.A Depression, unspecified; F41.0 Panic disorder [episodic paroxysmal anxiety]; Z90.49 Acquired absence of other specified parts of digestive tract; Z90.710 Acquired absence of both cervix and uterus; Z98.51 Tubal ligation status; Z87.442 Personal history of urinary calculi; Z86.711 Personal history of pulmonary embolism; Z72.89 Other problems related to lifestyle; Z88.8 Allergy status to other drugs, medicaments and biological substances; Z79.899 Other long term (current) drug therapy
CPT/HCPCS: 71046; 93005; 96372; 99283; J1100

== ENCOUNTER 2025-01-28 21:43 | Emergency (ER) | payer MEDICARE, MEDICAID ==
[~2025-01-28] VITALS: Ht 162.6 cm; Wt 120.8 kg
[~2025-01-28 21:43] MED LIST changes: -ALB0.5UD NEB; -ALBU8HFA INH; -AZIT-164 PO; +NICO-731 TOP
[2025-01-28 21:53] VITALS: TEMP 98.4
--- NOTE | 2025-01-28 23:14 | Physician Documentation ---
History of Present Illness ~ Chief Complaint: Abdominal Pain Stated Complaint: ABDOMINAL PAIN Time Seen by MD: 23:08 Primary Medical Doctor: MIKI SKELTON This is a 44-year-old female presenting with right upper quadrant pain for the past 4-5 days, patient reports that she has been seen 3 times at [facility] and received three CT scans, patient brought in her discharge paperwork and CT reports from [facility], patient is concerned due to the findings on the CT scan without an adequate answer of what is the cause of her abdominal pain. Review of the previous medical records indicate patient was seen and diagnosed with constipation and ventral hernias and instructed to follow up with primary care provider and surgeon for surgical repair of ventral hernias as they believe this is the source of her abdominal pain, there were secondary findings related to possible pulmonary hypertension which patient was instructed to follow up with primary care about. Patient is concerned that there was a possible finding of cellulitis on a radiology report that recommended clinical correlation. Patient reports she has history of bowel obstruction and is concerned she may be developing a bowel obstruction as she is having trouble having bowel movements and is passing very little gas. Medication Reconciliation Allergies: Coded Allergies: hydroxyzine (Verified Allergy, Intermediate, 10/12/24) adhesive tape (Verified Allergy, Unknown, 10/12/24) gabapentin (Unverified Allergy, Unknown, SWELLING, 10/12/24) medroxyprogesterone acetate (Verified Allergy, Unknown, 10/12/24) miconazole nitrate (Verified Allergy, Unknown, 10/12/24) promethazine HCl (Verified Allergy, Unknown, 10/12/24) Uncoded Allergies: TAPE (Allergy, Mild, blisters, 06/03/16) Patient reports plastic tape takes off "layer of skin" if left on too long Scheduled Albuterol Sulfate (Albuterol Sulfate), 1 VIAL NEB Q6H, (Reported) Apixaban (Eliquis), 1 TAB PO Q12H, (Reported) Cetirizine HCl (Cetirizine HCl), 1 TAB PO DAILY, (Reported) Clonazepam (Clonazepam), 1 TAB PO Q12H, (Reported) Doxycycline Hyclate (Doxycycline Hyclate), 1 CAP PO Q12H Fluticasone/Salmeterol (Advair Hfa 115-21 Mcg Inhaler), 2 PUFFS INH Q12H Lamotrigine (Lamotrigine), 1 TAB PO DAILY, (Reported) [place] Carbonate (LITHIUM CARBONATE tablet), 2 TAB PO HS, (Reported) Nicotine (Nicotine Patch), 1 PATCH TOP DAILY Omeprazole (Prilosec), 1 CAP PO BID, (Reported) Paliperidone (Invega), 1 TAB PO DAILY, (Reported) Prednisone* (Prednisone*), 2 TAB PO DAILY Quetiapine Fumarate (Seroquel), 1 TAB PO HS, (Reported) Rizatriptan Benzoate (Maxalt), 1 TAB PO UD, (Reported) Trazodone HCl (Trazodone HCl), 1 TAB PO HS, (Reported) Scheduled PRN Butalb/Acetaminophen/Caffeine (Fioricet Tab), 1 TAB PO QDAY PRN PRN for pain, (Reported) Ipratropium/Albuterol Sulfate (Combivent Respimat Inhal [place]), 2 PUFFS IH Q4H PRN for SOB or wheezing Oxycodone Hcl IR* (Oxycodone IR*), 1 TAB PO QID PRN PRN for pain, (Reported) Durable Medical Equipment Nebulizer and Compressor (Compressor Nebulizer System), EACH NEB Q4H PRN for SOB or wheezing, (DME) Past Medical History Past Medical History: Migraine, *CARDIOVASCULAR*, High Cholesterol, Hypertension, Pulmonary Embolism, *GI/HEPATOBILIARY*, Constipation, Diverticulitis, Gastritis, GERD, *RENAL/*, Kidney Stones, Renal Disease, Chronic Pain, Chronic Back Pain, C-Diff, Anxiety, Bipolar, Depression, Panic Disorder Past Surgical History: abdominal surgery, appendectomy, cholecystectomy, hysterectomy, orthopedic surgeries, tubal ligation, other Other Past Surgical History: ovarian cysts/endometriosis, adhesion removal, prolapsed bladder repair Patient History: FH: lung cancer Maternal grandmamother FH: pancreatic cancer FATHER (Meth use, depression) Paternal grandfather FH: stomach cancer FATHER (Meth use, depression) Paternal grandmother FH: uterine cancer MOTHER (Maniac depresssion) Other Past Family History: NONCONTRIBUTORY Alcohol Use: Occasionally Drug Use: marijuana Lives with: Alone Lives In: Home Review of Systems Constitutional: Denies: fever Gastrointestinal: Reports: abdominal pain, nausea Physical Exam Vital Signs: Temperature: 98.4, Source: Oral, Heart Rate: 83, Respiratory Rate: 16, BP: 122/87, Pulse Oximetry: 98, Weight: 120.850 Oxygen Flow Rate: 0 Physical Exam VITALS: Reviewed and as above. GENERAL: Alert, nontoxic appearing, no apparent distress. HEENT: RESPIRATORY: No increased work of breathing, no respiratory distress, speaking in full clear sentences CHEST: CV: BACK: GI: Nondistended MUSCULOSKELETAL: SKIN: No erythema or ecchymosis to the skin of the abdomen NEURO: PSYCH: Progress Results/Orders Results/Orders Completed Orders - FER STORM MD Oxycodone Immed Release Tablet (Oxy Ir T (01/29/25 03:00) Ondansetron Disint. Tablet (Zofran Odt T (01/29/25 03:00) Magnesium Hydrox Oral Susp. (Milk Of Mag (01/29/25 03:00) Medications Received in ER Medications (Trade) Dose Ordered Sig/Gomez Route PRN Reason Start Time Stop Time Status Last Admin Dose Admin (Toradol injection) 15 mg ONCE ONCE IV 01/29/25 00:15 01/29/25 00:19 DC 01/29/25 01:12 15 MG (OXY IR tablet) 5 mg ONCE ONCE PO 01/29/25 03:00 01/29/25 03:01 DC 01/29/25 03:13 5 MG (Zofran ODT tablet) 4 mg ONCE ONCE PO 01/29/25 03:00 01/29/25 03:01 DC 01/29/25 03:12 4 MG (milk of magnesia oral suspension) 30 ml ONCE ONCE PO 01/29/25 03:00 01/29/25 03:01 DC 01/29/25 03:13 30 ML Vital Signs 01/28/25 01/29/25 01/29/25 01/29/25 21:53 01:12 02:06 03:13 Temp 98.4 Pulse 83 Resp 16 18 18 18 B/P (MAP) 122/87 Pulse Ox 98 O2 Flow Rate 0 01/29/25 03:28 Pulse 80 Resp 18 B/P (MAP) 120/89 Pulse Ox 99 Laboratory Tests Test 01/28/25 23:33 White Blood Count 11.6 H Red Blood Count 4.03 L Hemoglobin 12.9 Hematocrit 37.3 Mean Corpuscular Volume 92.6 Mean Corpuscular Hemoglobin 32.0 H Mean Corpuscular Hemoglobin Concent 34.6 Red Cell Distribution Width 15.3 H Platelet Count 288 Mean Platelet Volume 7.5 Neutrophils (%) (Auto) 61.3 Lymphocytes (%) (Auto) 30.0 Monocytes (%) (Auto) 4.9 Eosinophils (%) (Auto) 3.1 Basophils (%) (Auto) 0.7 Neutrophils # (Auto) 7.1 Lymphocytes # (Auto) 3.5 Monocytes # (Auto) 0.6 Eosinophils # (Auto) 0.4 Basophils # (Auto) 0.1 CBC Comment Sodium Level 141 Potassium Level 3.8 Chloride Level 106 Carbon Dioxide Level 27.5 Anion Gap 8 Blood Urea Nitrogen 9 Creatinine 0.84 Estimated GFR/1.73 m2 74 BUN/Creatinine Ratio 10.7 Glucose Level 97 Calcium Level 8.8 Total Bilirubin 0.2 Aspartate Amino Transf (AST/SGOT) 14 Alanine Aminotransferase (ALT/SGPT) 24 Alkaline Phosphatase 119 H Total Protein 6.8 Albumin 3.1 L Globulin 3.7 Albumin/Globulin Ratio 0.8 L Lipase 21 Chemistry Comments Medical Decision Making Findings MSE performed in triage and patient returned to ED lobby by nursing staff to await available ED room. Labs and pain medication initiated. Case discussed with and transferred to ED attending Dr. Martínez after patient placed in available ED room. Assessment I independently evaluated this patient, after assuming care from the previous provider performed the MSE. She presents with chronic abdominal pain and associated symptoms. She has had multiple workups over the past couple of days including multiple CT scans of her chest and abdomen. Her concerns today seem related to the radiology reports. Otherwise, she has no new or more concerning symptoms today. On review of her lab work today, there are no acute or dangerous findings. I also reviewed the paperwork from the outside hospital including multiple CT scan reports and laboratory testing. I sat and explained all these results to the patient. This includes findings of fatty liver and other nonspecific findings that do not represent a dangerous medical or surgical emergency. She was reassured about all these conditions. Following this, she felt comfortable going home with no further workup here today. She will be given a prescription for Zofran. She will follow up as an outpatient for further evaluation. Fer Storm MD. Departure Time of Disposition: 02:59 Disposition: 01 HOME / SELF CARE / HOMELESS Impression: Primary Impression: Chronic Abdominal Pain Condition: Stable Discharge Instructions: Abdominal Pain (Nonspecific) Referrals: NO PRIMARY CARE PROVIDER (PCP) Education Educated: Patient, Family Educated regarding: diagnosis, need for follow up Signature Scribe Signature: na Attestation: I evaluated, examined, and dispositioned the patient. I agree with the MSE information and exam. DARRYN Blanco MD January 28, 2025 23:14 FER STORM MD January 29, 2025 03:00
[2025-01-28 23:56] LABS: BASOPHILS # (AUTO) 0.1 X10'3 (0-0.2); BASOPHILS % (AUTO) 0.7 % (0-1); EOSINOPHILS # (AUTO) 0.4 X10'3 (0-0.9); EOSINOPHILS % (AUTO) 3.1 % (0-6); HEMATOCRIT 37.3 % (35.0-45.0); HEMOGLOBIN 12.9 g/dl (12.0-16.0); LYMPHOCYTES # (AUTO) 3.5 X10'3 (1.1-4.8); MEAN CORPUSCULAR HGB CONC 34.6 g/dL (33.0-36.5); MEAN CORPUSCULAR VOLUME 92.6 FL (78-98); MEAN PLATELET VOLUME 7.5 FL (7.4-10.4); MONOCYTES # (AUTO) 0.6 X10'3 (0-0.9); MONOCYTES % (AUTO) 4.9 % (2-12); NEUTROPHILS # (AUTO) 7.1 X10'3 (1.8-7.7); NEUTROPHILS % (AUTO) 61.3 % (42-75); PLATELET COUNT 288 X10'3 (140-440); RED BLOOD COUNT 4.03 X10'6 (4.20-5.60); RED CELL DISTRIBUTION WIDTH 15.3 % (11.5-14.5); WHITE BLOOD COUNT 11.6 X10'3 (4.5-11.0)
[2025-01-29] MEDS ORDERED: ketorolac trometh 15mg/ml vial 15 MG/ML ML IM ONE
[2025-01-29 00:12] LABS: ALANINE AMINOTRANSFERASE 24 U/L (12-78); ALBUMIN 3.1 G/DL (3.4-5.0); ALBUMIN/GLOBULIN RATIO 0.8 (1.1-1.5); ALKALINE PHOSPHATASE 119 IU/L (46-116); ANION GAP 8 (8-16); ASPARTATE AMINO TRANSFERASE 14 U/L (10-37); BILIRUBIN,TOTAL 0.2 MG/DL (0.1-1.0); BLOOD UREA NITROGEN 9 MG/DL (7-18); BUN/CREATININE RATIO 10.7 (10.0-20.0); CALCIUM 8.8 MG/DL (8.5-10.1); CHLORIDE 106 MMOL/L (99-107); CREATININE 0.84 MG/DL (0.40-0.90); GLUCOSE 97 MG/DL (70-104); LIPASE 21 U/L (16-77); POTASSIUM 3.8 MMOL/L (3.5-5.1); SODIUM 141 MMOL/L (135-145); TOTAL CARBON DIOXIDE 27.5 MMOL/L (24-32); TOTAL PROTEIN 6.8 G/DL (6.4-8.2); eCRCL 74 ML/MIN; eGFR 74 ML/MIN
[2025-01-29] MEDS: ketorolac trometh 15mg/ml vial 15 MG/ML ML IV ONE (01:12)
[2025-01-29] MEDS: ondansetron 4mg rapidly disintigrating tab PO ONE (03:12)
[2025-01-29] MEDS: oxyCODONE IR 5mg (immed. release) tablet PO ONE (03:13)
[2025-01-29] MEDS: magnesium hydroxide 30ml (MOM) UD suspension PO ONE (03:13)
[2025-01-29 03:28] VITALS: BP 120/89; PULSE 80; RESP 18; O2SAT 99
== END 2025-01-29 03:25 | disposition home or self-care (01) ==
LOC: ER 21:43
DX: R10.11 Right upper quadrant pain (principal); E78.00 Pure hypercholesterolemia, unspecified; F31.9 Bipolar disorder, unspecified; F41.9 Anxiety disorder, unspecified; F32.A Depression, unspecified; I10 Essential (primary) hypertension; Z88.8 Allergy status to other drugs, medicaments and biological substances; Z90.49 Acquired absence of other specified parts of digestive tract; Z90.710 Acquired absence of both cervix and uterus
CPT/HCPCS: 36415; 80053; 83690; 85025; 96374; 99284; J1885

== ENCOUNTER 2025-05-07 10:44 | Emergency (ER) | payer MEDICARE, MEDICAID ==
[~2025-05-07] VITALS: Ht 162.6 cm; Wt 108.2 kg
[2025-05-07 10:50] VITALS: TEMP 97.2
--- NOTE | 2025-05-07 12:29 | Physician Documentation ---
History of Present Illness ~ Chief Complaint: Knee Pain Stated Complaint: KNEE PAIN Time Seen by MD: 11:53 OK to notify your PCP?: Yes Primary Medical Doctor: MIKI WATERS Source: patient Mode of Arrival: POV Exam Limitations: no limitations HPI 44-year-old female with chief complaint left knee pain. She states the knee pain originally started in December of this year but it increased when she had a fall a few weeks ago. She states her falls of both been ground level falls where she landed on her knee. She has an appointment to see your primary care provider next month to have this evaluated but states she wanted to come in today because she wants to figure out what is going on with her knee. She takes muscle relaxers for chronic back pain and she also takes Motrin and Tyleno l and states that nothing has been helping with this knee pain. Pain is worse when she weight bears on her knee. She has not noticed any swelling, skin color changes, pain behind her knee, groin or calf pain. Tetanus witin 5 years: Yes Medication Reconciliation Allergies: Coded Allergies: hydroxyzine (Verified Allergy, Intermediate, 05/07/25) adhesive tape (Verified Allergy, Unknown, 05/07/25) gabapentin (Unverified Allergy, Unknown, SWELLING, 05/07/25) medroxyprogesterone acetate (Verified Allergy, Unknown, 05/07/25) miconazole nitrate (Verified Allergy, Unknown, 05/07/25) promethazine HCl (Verified Allergy, Unknown, 05/07/25) Uncoded Allergies: TAPE (Allergy, Mild, blisters, 06/03/16) Patient reports plastic tape takes off "layer of skin" if left on too long Scheduled Albuterol Sulfate (Albuterol Sulfate), 1 VIAL NEB Q6H, (Reported) Apixaban (Eliquis), 1 TAB PO Q12H, (Reported) Cetirizine HCl (Cetirizine HCl), 1 TAB PO DAILY, (Reported) Clonazepam (Clonazepam), 1 TAB PO Q12H, (Reported) Doxycycline Hyclate (Doxycycline Hyclate), 1 CAP PO Q12H Fluticasone/Salmeterol (Advair Hfa 115-21 Mcg Inhaler), 2 PUFFS INH Q12H Lamotrigine (Lamotrigine), 1 TAB PO DAILY, (Reported) [place] Carbonate (LITHIUM CARBONATE tablet), 2 TAB PO HS, (Reported) Nicotine (Nicotine Patch), 1 PATCH TOP DAILY Omeprazole (Prilosec), 1 CAP PO BID, (Reported) Paliperidone (Invega), 1 TAB PO DAILY, (Reported) Prednisone* (Prednisone*), 2 TAB PO DAILY Quetiapine Fumarate (Seroquel), 1 TAB PO HS, (Reported) Rizatriptan Benzoate (Maxalt), 1 TAB PO UD, (Reported) Trazodone HCl (Trazodone HCl), 1 TAB PO HS, (Reported) Scheduled PRN Butalb/Acetaminophen/Caffeine (Fioricet Tab), 1 TAB PO QDAY PRN PRN for pain, (Reported) Ipratropium/Albuterol Sulfate (Combivent Respimat Inhal [place]), 2 PUFFS IH Q4H PRN for SOB or wheezing Oxycodone Hcl IR* (Oxycodone IR*), 1 TAB PO QID PRN PRN for pain, (Reported) Durable Medical Equipment Nebulizer and Compressor (Compressor Nebulizer System), EACH NEB Q4H PRN for SOB or wheezing, (DME) Past Medical History Past Medical History: Migraine, *CARDIOVASCULAR*, High Cholesterol, Hypertension, Pulmonary Embolism, *GI/HEPATOBILIARY*, Constipation, Diverticulitis, Gastritis, GERD, *RENAL/*, Kidney Stones, Renal Disease, Chronic Pain, Chronic Back Pain, C-Diff, Anxiety, Bipolar, Depression, Panic Disorder Past Surgical History: abdominal surgery, appendectomy, cholecystectomy, hysterectomy, orthopedic surgeries, tubal ligation, other Other Past Surgical History: ovarian cysts/endometriosis, adhesion removal, prolapsed bladder repair Patient History: FH: lung cancer Maternal grandmamother FH: pancreatic cancer FATHER (Meth use, depression) Paternal grandfather FH: stomach cancer FATHER (Meth use, depression) Paternal grandmother FH: uterine cancer MOTHER (Maniac depresssion) Other Past Family History: NONCONTRIBUTORY Alcohol Use: Occasionally Drug Use: marijuana Lives with: Alone Lives In: Home Review of Systems All Other Systems at this time: Reviewed and Negative Physical Exam Vital Signs: Temperature: 97.2, Source: Temporal, Heart Rate: 79, Respiratory Rate: 16, BP: 157/102, Pulse Oximetry: 97, Weight: 108.180 Physical Exam Musculoskeletal: Tenderness over the anterior joint space as well as supra patellar area, no obvious effusion, no erythema, area of ecchymosis on her tibial plateau area consistent with injury from a few weeks ago. No tenderness at the popliteal fossa active range motion of knee joint is so fairly good. Rest of msk of LE is normal. General Appearance: Alert, WD/WN. NAD. HEENT: NCAT, PERRL, EOMI. Neck: Supple, trachea midline. Lungs: Breathing unlabored Skin: Warm/dry, normal color Neurological: Alert and oriented x4, ambulating favoring right leg. Psychiatric: Affect congruent with mood. Progress Progress Note CLINICAL INDICATION: knee pain s/p fall TECHNIQUE: DI KNEE LIMITED (AP/LAT) Comparison: DI KNEE, COMP 4 VW MIN on DOS: 05/17/23 FINDINGS/IMPRESSION: : There is no evidence of acute fracture or dislocation. Soft tissues are unremarkable. Results/Orders Results/Orders Orders - KB COSTA PA Knee Limited (Ap/Lat) (05/07/25 12:24) Hydrocodone/Apap 10/325 ([place] 10/325mg (05/07/25 13:00) Completed Orders - KB COSTA Knee Limited (Ap/Lat) (05/07/25 12:24) Vital Signs 05/07/25 10:50 Temp 97.2 Pulse 79 Resp 16 B/P (MAP) 157/102 Pulse Ox 97 Medical Decision Making Knee Diff Dx:Considerations: Include: Abrasion, Arthritis, Contusion, DJD, Fra cture-femur, Fracture-fibula, Fracture-patella, Fracture-tibia, Gout, Hematoma, Laceration, Meniscus injury, Neurovascular injury, Open fracture, Rheumatoid arthritis, Septic, Sprain, Sprain-MCL, Sprain-LCL, Sprain-ACL, Sprain-PCL Departure Disposition: 01 HOME / SELF CARE / HOMELESS Impression: Primary Impression: Knee pain Qualified Codes: M25.562 - Pain in left knee Additional Impression: Fall at home Qualified Codes: W19.XXXA - Unspecified fall, initial encounter; Y92.009 - Unspecified place in unspecified non-institutional (private) residence as the place of occurrence of the external cause Condition: Stable Discharge Instructions: Acute Knee Pain, Adult Additional Instructions: F/U WITH PCP FOR FURTHER WORK UP OF KNEE PAIN XRAY NEGATIVE NEXT STEP WOULD BE PHYSICAL THERAPY AND MRI CONTINUE TYLENOL/MOTRIN CLINICAL INDICATION: knee pain s/p fall TECHNIQUE: DI KNEE LIMITED (AP/LAT) Comparison: DI KNEE, COMP 4 VW MIN on DOS: 05/17/23 FINDINGS/IMPRESSION: : There is no evidence of acute fracture or dislocation. Soft tissues are unremarkable. Referrals: NO PRIMARY CARE PROVIDER (PCP) Education Educated: Patient Educated regarding: diagnosis, treatment, need for follow up Signature Scribe Signature: X Attestation: KB REDDY May 07, 2025 12:29
--- NOTE | 2025-05-07 12:46 | RADIOLOGY REPORT ---
CLINICAL INDICATION: knee pain s/p fall TECHNIQUE: DI KNEE LIMITED (AP/LAT) Comparison: DI KNEE, COMP 4 VW MIN on DOS: 05/17/23 FINDINGS/IMPRESSION: : There is no evidence of acute fracture or dislocation. Soft tissues are unremarkable.
[2025-05-07] MEDS: HYDROcodone/acetaminophen 10/325mg tab PO ONE (13:07)
[2025-05-07 13:09] VITALS: BP 153/97; PULSE 67; RESP 18; O2SAT 98
== END 2025-05-07 13:16 | disposition home or self-care (01) ==
LOC: ER 10:44
DX: M25.562 Pain in left knee (principal); M54.9 Dorsalgia, unspecified; E78.00 Pure hypercholesterolemia, unspecified; F31.9 Bipolar disorder, unspecified; I10 Essential (primary) hypertension; Z88.8 Allergy status to other drugs, medicaments and biological substances; Z90.49 Acquired absence of other specified parts of digestive tract; Z90.710 Acquired absence of both cervix and uterus; Z91.048 Other nonmedicinal substance allergy status; W18.30XA Fall on same level, unspecified, initial encounter; Y93.89 Activity, other specified; Y92.009 Unspecified place in unspecified non-institutional (private) residence as the place of occurrence of the external cause; Y99.8 Other external cause status
CPT/HCPCS: 73560; 99284

== ENCOUNTER 2025-05-25 13:22 | Outpatient (CLI) | payer MEDICARE, MEDICAID ==
--- NOTE | 2025-05-25 15:05 | RADIOLOGY REPORT ---
EXAM: MR MRI LOWER EXTREMITY LEFT HISTORY: PAIN IN LEFT KNEE COMPARISON: DI KNEE LIMITED (AP/LAT) on DOS: 05/07/25 TECHNIQUE: Multiplanar, multisequence imaging of the left knee was performed without contrast FINDINGS: MEDIAL COMPARTMENT: Intact medial meniscus. No focal chondrosis or subchondral edema. LATERAL COMPARTMENT: Intact lateral meniscus. No focal chondrosis or subchondral edema. PATELLOFEMORAL COMPARTMENT: No focal chondrosis or subchondral edema. CRUCIATE LIGAMENTS: Intact anterior and posterior cruciate ligaments. MEDIAL SUPPORTING STRUCTURES: Intact medial collateral ligament. LATERAL SUPPORTING STRUCTURES: Intact iliotibial band, lateral capsular ligament, fibular collateral ligament, popliteus, and biceps femoris tendons EXTENSOR MECHANISM: Intact. Small amount of edema of the suprapatellar fat pad minimal posterior convexity adjacent minimal osteitis of the superior pole of the patella. Correlate for suprapatellar fat pad impingement. JOINT SPACE/FLUID: No joint effusion. BONES: No acute fracture, osseous contusion, or aggressive focal osseous lesion MUSCLES: Normal in signal intensity and morphology NEUROVASCULAR: Unremarkable OTHER: None IMPRESSION: 1. Small amount of edema of the suprapatellar fat pad with minimal posterior convexity adjacent minimal osteitis of the superior pole of the patella. 2. Correlate for suprapatellar fat pad impingement. 3. No meniscal or cruciate ligamentous injury.
== END 2025-05-25 23:59 | disposition home or self-care (01) ==
LOC: MRI02 13:22
PROVIDERS: ATTEND Nurse Practitioner
DX: R60.0 Localized edema (principal); M25.562 Pain in left knee
CPT/HCPCS: 73721